=== PATIENT | male | born 1940 | race Caucasian/White ===

== ENCOUNTER 2016-12-06 09:36 | Outpatient (CLI) | payer MEDICARE ==
--- NOTE | 2016-12-06 10:55 | ULT ---
BILATERAL RENAL SONOGRAM: Date: 12/06/16 HISTORY: Renal failure. FINDINGS: The right kidney is 10.4 cm in length and the left is 9.3 cm. Each has a normal sonographic appearan ce without evidence of mass, stone, or hydronephrosis. Arcuate arteries are apparent. Urinary bladder is incompletely distended. IMPRESSION: No evidence of urinary tract obstruction. No significant abnormalities are demonstrated. POS: [facility]
== END 2016-12-06 09:37 | disposition home or self-care (01) ==
LOC: ULT 09:36
PROVIDERS: ATTEND Internal Medicine Geriatric Medicine
DX: N17.9 Acute kidney failure, unspecified (principal); N18.3 Chronic kidney disease, stage 3 (moderate)
CPT/HCPCS: 76770

== ENCOUNTER 2017-01-06 08:40 | Outpatient (CLI) | payer MEDICARE ==
--- NOTE | 2017-01-06 10:52 | SJPRAD ---
LEFT FINGER 3 VIEWS: Date: 01/06/17 HISTORY: Abscess of left finger. Osteomyelitis. COMPARISON: None. FINDINGS: There is extensive soft tissue edema of the index finger, which is markedly swollen. There is lucenc y of the cortex medullary cavity of the middle phalanx head and neck extending to the interphalangea l joint. There appears to be a pathologic fracture through this. IMPRESSION: Findings concerning for osteomyelitis of the middle phalanx head and neck, as well as septic arthrit is of distal interphalangeal joint of the index finger. There also appears to be a dorsal soft tissu e defect that may represent an ulceration. Surgical consultation is advised. POS: [facility]
== END 2017-01-06 08:41 | disposition home or self-care (01) ==
LOC: MWLC RAD 08:40
PROVIDERS: ATTEND Internal Medicine Geriatric Medicine
DX: L02.512 Cutaneous abscess of left hand (principal); M86.9 Osteomyelitis, unspecified; M19.042 Primary osteoarthritis, left hand

== ENCOUNTER 2017-01-06 18:07 | Observation (INO) | payer MEDICARE ==
[~2017-01-06 18:07] MED LIST: Heparin 1,000 UNITS/ML VIAL ONE
[2017-01-06] MEDS ORDERED: Sodium Chloride 0.9% 30 ML ONE (18:48)
[2017-01-06] MEDS ORDERED: Bacitracin Zinc Ointment 30 gm TUBE ONE (18:48)
[2017-01-06] MEDS ORDERED: Bupivacaine PF 0.5% 30 ML VIAL ONE (18:48)
[2017-01-06 19:26] LABS: #Basophils 0.1 thou/uL (0.0-0.2); #Eosinphils 0.3 thou/uL (0.0-0.7); #Lymphocytes 1.6 thou/uL (1.20-3.40); #Monocytes 0.8 thou/uL (0.11-0.59); #Neutrophils 2.8 thou/uL (1.40-6.50); %Basophils 1.4 % (0.0-1.0); %Eosinophils 4.5 % (0.0-10.0); %Lymphocytes 29.1 % (21.0-51.0); %Monocytes 14.8 % (0.0-10.0); Hematocrit 41.6 % (42.0-52.0); Mean Platelet Volume 6.4 fL (7.4-10.4); Red Blood Cell (RBC) Count 4.11 mill/uL (4.70-6.10); White Blood Cell (WBC) Count 5.6 thou/uL (4.8-10.8)
[2017-01-06 19:32] LABS: PTT 43.3 SEC (22.9-36.1); Prothrombin Time 23.2 SEC (12.0-14.7)
[2017-01-06 19:46] LABS: Anion Gap 12 mmol/L (10-20); BUN (Urea Nitrogen) 17 mg/dL (8.4-25.7); Calc. Creatinine Clearance 0 mL/min (70-130); Calcium 9.3 mg/dL (7.8-10.44); Carbon Dioxide 25 mmol/L (23-31); Chloride 101 mmol/L (98-107); Estimated GFR-MDRD 60
[2017-01-06] MEDS ORDERED: Dexamethasone 20 MG/5 ML VIAL ONE (20:06)
[2017-01-06] MEDS ORDERED: Propofol 200 MG/20 ML VIAL ONE (20:06)
[2017-01-06] MEDS ORDERED: Ondansetron HCl/PF 4 MG/2 ML Vial ONE (20:06)
[2017-01-06] MEDS ORDERED: Fentanyl 100 MCG/2 ML VIAL ONE (21:04)
[2017-01-06] MEDS ORDERED: Acetaminophen 325 MG TAB PO PRN (21:14)
[2017-01-06] MEDS ORDERED: HYDROcodone/Acetaminophen 7.5/325 mg Tablet PO PRN (21:14)
[2017-01-06] MEDS ORDERED: Bisacodyl 10 MG SUPP PR PRN (21:14)
[2017-01-06] MEDS ORDERED: diphenhydrAMINE 50 MG CAP PO PRN (21:14)
[2017-01-06] MEDS ORDERED: Ondansetron HCl/PF 4 MG/2 ML Vial IVP PRN (21:14)
[2017-01-06] MEDS ORDERED: Morphine 10 MG/ML VIAL SLOW IVP PRN (21:20)
[2017-01-06 22:18] VITALS: BMI 21.8
[2017-01-06] MEDS: Dextrose 5 %-0.45 % NaCl 1,000 ML IV SCH (23:13)
[2017-01-07 02:08] LABS: Bilirubin Negative (Negative); Blood, Urine Negative (Negative); Glucose, Urine (Dipstick) Negative (Negative); Ketone, Urine Negative (Negative); Nitrite Negative (Negative); Protein, Urine (Dipstick) Negative (Neg-Trace); Urobilinogen 0.2 mg/dL (0.2-1.0)
[2017-01-07 02:10] LABS: Bacteria/HPF None Seen HPF (None Seen); Hyaline Casts/LPF 0-3 HYALINE CAST LPF (0-3 Hyaline); RBC/HPF 0-3 HPF (0-3); Squamous Epithelial None Seen HPF (0-3); WBC/HPF None Seen HPF (0-3)
--- NOTE | 2017-01-07 08:20 | OP ---
DATE OF SURGERY: 01/06/2017 PREOPERATIVE DIAGNOSES: 1. Open wound, 1 cm over the distal interphalangeal joint. 2. Gross abscess infection. POSTOPERATIVE DIAGNOSIS: 1. Open wound, 1 cm over the distal interphalangeal joint. 2. Gross abscess infection. FINDINGS: 1. Open wound, 1 cm over the distal interphalangeal joint and gross abscess infection with mild ost eomyelitis, very soft distal 5 mm subchondral bone and articular surface at the neck of the middle p halanx. 2. Intra-articular abscess with only minimal involvement dorsal aspect of the distal phalanx but in volved the tendon causing marked adhesions and a hole in the extensor mechanism. PROCEDURE PERFORMED: 1. Resection of bone cortex of distal phalanx. 2. Resection of osteoplasty removing the distal 5 mm articular surface, it was all soft bone of the middle phalanx, neck, and distal end. 3. Drainage of bone abscess with bone cortex excision middle phalanx. 4. Tenotomy extensor tendon over the distal interphalangeal joint. SURGEON: Robert Cannon MD FINANCIAL INVESTMENT ADVISER: Angel Tucker DESCRIPTION OF PROCEDURE: After successful general LMA technique, the limb was prepped and draped. The patient had the wound undergo a timeout. The limb was exsanguinated and the tourniquet was inf lated 250 mmHg pressure just after given the 12 mL metacarpophalangeal joint level block at the leve l of the metacarpophalangeal joint of this index finger on the left side. The patient had gross pur ulence removed. This extended 5 mm distal and 2 centimeters proximally in a lazy J-type fashion. T here were marked tendon adhesions, so a tenotomy had to be done separate from the skin and from the bone where underlying the distal 4-5 mm of metacarpal of the middle phalanx, neck, and articular ella face completely softened and involved in gross osteomyelitis. We then curetted out the canal of the entire middle phalanx, separate what was left of the tendon because there was a hole and the tendon occupied over 75% of it ____ distal interphalangeal joint. Around the insertion of the tendo n, there was a small amount of mucopurulence, but no true soft bone was seen here. The joint had in fection and it was debrided as well using a combination of rongeur, curettes, freer, tenotomy scisso rs, and Kenedy blade. Once this debridement was done, we also debrided the skin, subcutaneous fat, using the same instrumentation with an excisional technique and a depth was down to include the enti re joint until the level of volar plate. Once this debridement was complete, we irrigated the joint with 3 liters of normal saline, Pulsavac pressure with bacitracin inside 50,000 units per liter. Tourniquet was deflated. Hemostasis obtained. We did not close the wound because of gross infectio n was sent. The bone that had been resected from the middle phalanx half as a specimen and half as a culture. The patient left the operating room with a bulky dressing applied, wet-to-dry packing of the open bone cavity with intention to admit for IV antibiotics, change in PICC line, and also obta stephaniad a consultation with Infectious Disease and hope to get him out of the hospital in the next 12 t o 16 hours.
[2017-01-07] MEDS ORDERED: Famotidine/PF 20 mg/2ml Vial SLOW IVP SCH (09:00)
[2017-01-07] MEDS ORDERED: Vancomycin HCl 1 GM in Premix Bag 1 BAG IVPB SCH ×2 (09:00→21:00)
[2017-01-07 09:05] VITALS: TEMP 97.7
[2017-01-07 13:52] VITALS: BP 133/71
[2017-01-07] MEDS: Dextrose 5 %-0.45 % NaCl 1,000 ML IV SCH (14:20)
--- NOTE | 2017-01-07 14:24 | SPC ---
SONOGRAPHIC GUIDED LEFT UPPER EXTREMITY PICC PLACEMENT: Date: 01/07/17 HISTORY: Finger infection. Need for long-term antibiotic. FINDINGS: After explaining the procedure and answering all questions, the left upper extremity was prepped and draped in the usual sterile fashion. Sterile technique, buffered local anesthesia, sonographic guid ance, and a 22 gauge needle were used to carefully access the left brachial vein. Standard technique was then used to place the tip of a 5 [place] single lumen PICC so that the tip lies at the level of the superior vena cava. The catheter was flushed and secured externally. The patient tolerated the procedure well and was returned in unchanged condition. IMPRESSION: Technically successful left upper extremity PICC placement. Catheter is now ready for use. POS: [facility]
[2017-01-07 15:19] LABS: Vancomycin, Trough 19.1 ug/mL
--- NOTE | 2017-01-07 15:31 | CON ---
DATE OF CONSULTATION: 01/07/2017 REASON FOR CONSULTATION: Left index finger infection. HISTORY OF PRESENT ILLNESS: A 76-year-old with a history of atrial fibrillation with ischemic cardi omyopathy, who sustained an injury to the left index finger while he was cutting a piece of biscuit with a knife. According to him, he nicked the distal phalanx skin site dorsal aspect, applied some peroxide, but subsequently developed inflammatory changes, which led to the current admission. No h eadaches, visual symptoms, sore throat, odynophagia, or dysphagia. He does have dyspnea sometimes m ostly on effort. No cough and no hemoptysis. No vomiting, hematemesis, melena, hematochezia. Void ing without difficulty. No diarrhea. The patient has chronic swelling in lower extremities, varice s. PAST MEDICAL HISTORY: Atrial fibrillation, cardiomyopathy, appendectomy. ALLERGIES: PENICILLIN with what he describes as an area of pruritus with swelling in the left arm a fter an injection of PENICILLIN in the right gluteal region many years ago. MEDICATION LIST: He is currently on hydrocodone, Pepcid, warfarin, vancomycin. FAMILY HISTORY: Includes coronary disease. SOCIAL HISTORY: He mostly lives in [place] and is trying to operate a restaurant. He works with a l ot of concrete jobs, and patient used to smoke cigars for the most part, but never cigarettes. Does not drink much. PHYSICAL EXAMINATION: VITAL SIGNS: Essentially normal. No fever. SKIN EXAM: Shows the findings in the left index finger, which is covered with a bulky dressing at t his time. No lymphadenopathy. HEENT: Ocular movements are conjugate. Oral cavity with still quite a few teeth in place with bette ed decay and gum disease. NECK: Supple, no jugular venous distention. LUNGS: With basilar inspiratory crackles, which are somewhat transient and resolved with deep breat rui. Irregular rate and rhythm. Not tachycardic. HEART: S1, S2 with a soft aortic murmur and pulmonic murmur. No S3 or S4. ABDOMEN: Soft, not distended, or tender. No ascites. No bladder distention. : No genital abnormalities. EXTREMITIES: Evidence of osteoarthrosis, shoulders, knees, and ankles. A 2-3+ edema in lower extre mities with varices in legs. Pulses 1+ in dorsalis pedis. Plantar responses are flexor. No clonus . NEUROLOGIC: Cognitive function appears to be intact. LABORATORY DATA: The white cell count was not remarkable, mild hyponatremia. The hemoglobin 13.5 w ith MCV 101 and neutrophil percentage of 50. Urinalysis was essentially normal. Microbiology with Staphylococcus species isolated from the finger. The operative report was reviewed and there was ev idence of quite extensive osteomyelitis, which required debridement, some tenosynovectomy as well. ASSESSMENT: 1. Atrial fibrillation, on warfarin. 2. Accidental laceration of the left index finger with osteomyelitis of the middle phalanx and sept ic arthritis involving the proximal interphalangeal joint, status post surgical debridement, now the patient being readied for discharge. PLAN: We will go ahead and set up vancomycin 1.25 grams daily with end date of therapy calculated t o be 02/17/2017. Weekly labs including CBC, C-reactive protein, comprehensive panel, and vancomycin trough levels. He already has a PICC line inserted, and potential adverse reactions from the treat ment were discussed with the patient including skin hypersensitivity reactions and diarrhea, kidney, liver, and bone marrow toxicity as well as the PICC line complications, particularly thrombosis, al though this is not going to be an issue in his case due to the intake of warfarin.
--- NOTE | 2017-01-07 16:09 | EKG ---
Test Reason : PREOP Blood Pressure : / mmHG Vent. Rate : 083 BPM Atrial Rate : 326 BPM P-R Int : 000 ms QRS Dur : 098 ms QT Int : 366 ms P-R-T Axes : 000 032 075 degrees QTc Int : 430 ms Atrial fibrillation Abnormal ECG No previous ECGs available Confirmed by DR. Wilfrido PAYNE ([id number]) on 01/07/2017 4:08:21 PM Referred By: Danae DA SILVA Confirmed By:DR. Wilfrido PAYNE
--- NOTE | 2017-01-10 12:55 | DIS ---
DATE OF ADMISSION: 01/06/2017 DATE OF DISCHARGE: 01/07/2017 ADMISSION DIAGNOSES: 1. Open wound, 1 cm of distal phalangeal joint. 2. Gross abscess infection. DISCHARGE DIAGNOSES: Osteomyelitis, both sides of the distal phalangeal joint including severe invol vement of the neck and middle phalanx and the base of the proximal phalanx. HOSPITAL COURSE: Patient was admitted and because of abscess show evidence of osteomyelitis grossly, clinically and radiographically, he underwent resection arthroplasty of the soft bone, which would b e approximately 5 mm of the articular and subarticular surface of the distal end of the middle phalan x and the base articular surface of the proximal phalanx. Then, after resection with full irri gation and debridement, the wound was left open for awhile, and we planned at next visit to consider closure. He tolerated this well, was placed in appropriate open wound dressing and prepared for disc harge. He also underwent a tenotomy extensor tendon over distal phalangeal joint and drainage of the bone abscess. ASSESSMENT: The patient will return to clinic 2 days after discharge for dressing change, will have a splint applied , and the patient was finally without evidence of anesthetic or operative compl ication. He was prepared for intravenous antibiotics, which gave him prior to discharge. He will be on culture specific antibiotics after discharge. DIET: Regular. FOLLOWUP: Follow up in our clinic in less than 1 week for wound check.
== END 2017-01-07 16:45 | disposition home or self-care (01) ==
LOC: SDC 18:07 → SJJU 21:33
PROVIDERS: ADMIT Orthopaedic Surgery Hand Surgery; ATTEND Orthopaedic Surgery Hand Surgery
PROC: 0PBV0ZZ Excision of Left Finger Phalanx, Open Approach (ICD-10-PCS; principal; 2017-01-06)
PROC: 0LC80ZZ Extirpation of Matter from Left Hand Tendon, Open Approach (ICD-10-PCS; 2017-01-06)
PROC: 05HA33Z Insertion of Infusion Device into Left Brachial Vein, Percutaneous Approach (ICD-10-PCS; 2017-01-06)
PROC: B54NZZA Ultrasonography of Left Upper Extremity Veins, Guidance (ICD-10-PCS; 2017-01-06)
DX: M86.142 Other acute osteomyelitis, left hand (principal); I48.91 Unspecified atrial fibrillation; I25.5 Ischemic cardiomyopathy; S61.211A Laceration without foreign body of left index finger without damage to nail, initial encounter; W26.0XXA Contact with knife, initial encounter; M54.9 Dorsalgia, unspecified; G89.29 Other chronic pain; I10 Essential (primary) hypertension; J44.9 Chronic obstructive pulmonary disease, unspecified; K21.9 Gastro-esophageal reflux disease without esophagitis; M19.90 Unspecified osteoarthritis, unspecified site; Z79.2 Long term (current) use of antibiotics; Z79.01 Long term (current) use of anticoagulants; Z79.82 Long term (current) use of aspirin; Z79.899 Other long term (current) drug therapy; Z88.0 Allergy status to penicillin; Z90.49 Acquired absence of other specified parts of digestive tract; Z90.89 Acquired absence of other organs; Z98.890 Other specified postprocedural states; Z87.891 Personal history of nicotine dependence; Z87.01 Personal history of pneumonia (recurrent)
CPT/HCPCS: 11044; 26236; 26460; 36569; 80048; 80202; 81001; 85025; 85610; 85730; 87070; 87075; 87077; 87102; 87186; 87205; 87206; 88305; 93005; 96361 ×2; 96374 ×2; 97139 ×2; C1751; G0378; G8978; G8979; G8980; 36415; 93010; 99212; A4216; G0463; J1100; J1644; J2405; J2704; J3010; J3370; J3490; S0020; S0028

== ENCOUNTER 2017-01-18 10:07 | Inpatient (IN) | payer MEDICARE, SELFPAY ==
[2017-01-18 10:42] LABS: #Basophils 0.1 thou/uL (0.0-0.2); #Eosinphils 0.2 thou/uL (0.0-0.7); #Lymphocytes 1.8 thou/uL (1.20-3.40); #Monocytes 1.2 thou/uL (0.11-0.59); #Neutrophils 6.2 thou/uL (1.40-6.50); %Basophils 0.9 % (0.0-1.0); %Eosinophils 2.5 % (0.0-10.0); %Lymphocytes 18.7 % (21.0-51.0); %Monocytes 12.1 % (0.0-10.0); Hematocrit 46.8 % (42.0-52.0); Mean Platelet Volume 6.9 fL (7.4-10.4); Red Blood Cell (RBC) Count 4.52 mill/uL (4.70-6.10); White Blood Cell (WBC) Count 9.5 thou/uL (4.8-10.8)
[2017-01-18 10:53] LABS: PTT 55.9 SEC (22.9-36.1); Prothrombin Time 40.4 SEC (12.0-14.7)
[2017-01-18 11:01] LABS: Troponin I Less than 0.010 ng/mL (< 0.028)
[2017-01-18 11:08] LABS: ALT (SGPT) 17 U/L (8-55); AST (SGOT) 32 U/L (5-34); Alkaline Phosphatase 125 U/L (40-150); Anion Gap 13 mmol/L (10-20); BUN (Urea Nitrogen) 19 mg/dL (8.4-25.7); Bilirubin, Total 1.6 mg/dL (0.2-1.2); CK (CPK) 48 U/L (30-200); Calc. Creatinine Clearance 0 mL/min (70-130); Calcium 9.5 mg/dL (7.8-10.44); Carbon Dioxide 26 mmol/L (23-31); Chloride 98 mmol/L (98-107); Estimated GFR-MDRD 46; Lipase 42 U/L (8-78)
[2017-01-18] MEDS ORDERED: Lidocaine Viscous Sol 2% 15 ml UD Cup ONE (11:17)
[2017-01-18] MEDS ORDERED: Mag-Al 1200 mg/1200 mg/30 ML UDCUP ONE (11:17)
--- NOTE | 2017-01-18 11:30 | RAD ---
PORTABLE CHEST 1 VIEW: Date: 01/18/17 Time: 1035 hours HISTORY: Chest pain, shortness of breath. FINDINGS/IMPRESSION: There is a left upper extremity PICC line with tip in the projection of the SVC. There is elevation of the left hemidiaphragm. Mild patchy infiltrates are seen in the right lung and probably the left lung base. Small pleural effusions cannot be excluded. No pneumothoraces or kayleen pulmonary edema id entified. The heart size is borderline. POS: [facility]
[2017-01-18] MEDS ORDERED: Furosemide 40 MG/4 ML VIAL ONE (13:03)
[2017-01-18] MEDS ORDERED: Nitroglycerin 2% Ointment 1 INCH/1 GM Packet ONE (13:03)
--- NOTE | 2017-01-18 13:18 | CT ---
CT PULMONARY ANGIOGRAM WITH IV CONTRAST AND 3D MIP RECONSTRUCTIONS: 01/18/2017 PROVIDED CLINICAL HISTORY: Dyspnea. History of congestive heart failure. Bilateral lower extremity edema. FINDINGS: The heart is enlarged, particularly on the basis of biatrial enlargement. Vascular calcification, i ncluding coronary calcium, is noted. There is no evidence for central or segmental pulmonary embolu s. There is no evidence for thoracic lymph node enlargement. There are moderate to large bilateral pleural effusions. There is thickening of the pulmonary inter stitium. There is no evidence for pneumothorax. The airway appears patent and of normal caliber. The visualized portions of the upper abdomen appear grossly unremarkable. There is elevation of the left hemidiaphragm. A left upper extremity PICC line is partially visualized, the tip of which is located at the SVC. IMPRESSION: 1. No evidence for central or segmental pulmonary embolus. 2. Cardiomegaly and prominence of the pulmonary interstitium, compatible with changes of congestive heart failure. 3. Moderate to large bilateral pleural effusions. POS: OFF
[2017-01-18] MEDS ORDERED: Vancomycin HCl 1.25 GM in Sodium Chloride 0.9% 250 ML 250 ML IVPB SCH (13:45)
[2017-01-18] MEDS ORDERED: ISOVUE-370 76%-LOCM 1 ML ONE (14:18)
[2017-01-18 14:35] LABS: Troponin I 0.013 ng/mL (< 0.028)
[2017-01-18] MEDS ORDERED: Ondansetron HCl/PF 4 MG/2 ML Vial IVP PRN (15:38)
[2017-01-18] MEDS ORDERED: Sodium Chloride 0.65% Nasal 44 ML BOT EA NARE PRN (15:38)
[2017-01-18] MEDS ORDERED: Nitroglycerin 0.4 MG TAB (25 Tab Bottle) SL PRN (15:38)
[2017-01-18] MEDS ORDERED: Senokot 8.6 MG TAB PO PRN (15:38)
[2017-01-18] MEDS ORDERED: Artificial Tear Sol 15 ML BOT EA EYE PRN (15:38)
[2017-01-18] MEDS ORDERED: Milk Of Magnesia 30 ML UDCUP PO PRN (15:38)
[2017-01-18] MEDS ORDERED: Chloraseptic Spray 180 ml Bottle PO PRN (15:38)
[2017-01-18] MEDS ORDERED: Loperamide HCl 2 MG CAP PO PRN (15:38)
[2017-01-18] MEDS ORDERED: Diabetic Tussin 200 MG/10 ML UDCUP PO PRN (15:38)
[2017-01-18] MEDS ORDERED: Acetaminophen 325 MG TAB PO PRN (15:38)
[2017-01-18] MEDS ORDERED: Benzonatate 100 MG CAP PO PRN (15:38)
[2017-01-18] MEDS ORDERED: Ondansetron ODT 4 MG TAB PO PRN (15:38)
[2017-01-18] MEDS ORDERED: Loratadine 10 MG TAB PO PRN (15:38)
[2017-01-18] MEDS ORDERED: Eucerin (Mineral Oil/Petrolatum,White) 30 gm Jar TOP PRN (15:38)
[2017-01-18] MEDS ORDERED: HYDROcodone/Acetaminophen 5/325 mg Tablet PO PRN (15:38)
[2017-01-18] MEDS ORDERED: hydrALAZINE 20 MG/ML VIAL SLOW IVP PRN (15:38)
[2017-01-18] MEDS ORDERED: Mag-Al 1200 mg/1200 mg/30 ML UDCUP PO PRN (15:38)
[2017-01-18] MEDS ORDERED: VANCOMYCIN IVPB PRN (15:38)
--- NOTE | 2017-01-18 15:53 | HP ---
PRIMARY CARE PHYSICIAN: [facility]. REASON FOR ADMISSION: Chest pain, congestive heart failure exacerbation, COPD exacerbation. HISTORY OF PRESENT ILLNESS: A 76-year-old male who has underlying history of congestive heart failu re, COPD, atrial fibrillation on chronic anticoagulation therapy, who presented to the emergency [facility] with the complaint of increasing shortness of breath, chest pain as well as increasing bilateral l ower extremity edema. The patient reports that he has Medicare, but he is not able to follow up wit primary care physician as well as consultants because he cannot afford and that is why he has not seen any cardiology consultant for about a couple of years. He was recently admitted in our hospital on 2016. At that time, the patient had a cut in his left index finger, which required surgery. After c ut, the patient's left index finger was infected and Dr. Cannon did surgical procedure. The patie nt is getting vancomycin through the PICC line. The patient is also on warfarin therapy for his chr onic anticoagulation. The patient reports that he has history of cardiomyopathy and he was following supervisory civil engineer in [facility] am, but he is no longer following for the last couple of years. The patient also has underlying his tory of COPD and he was following mathematics academic chair at [facility], but he is not able to see them a s well and his inhalers are outdated. The patient does have increasing lower extremity edema for the last 2-3 weeks. For the last 5 days, the patient is feeling increasing shortness of breath. For the last 2-3 days, he is experiencing ch est pain. Lower extremity edema is gradually getting worse from pedal edema up to his knee level. Dyspnea is gradually getting worse to the point likely now he is only able to walk a few steps and t hen he has to rest. He cannot lie down flat. He does report orthopnea. He denies any PND. Regard ing chest pain which is substernal in location comes and goes for the last 3 days. Whenever it come s, it does last for only a few minutes and subsides by itself. There is no radiation. He denies an y associated diaphoresis, nausea, or vomiting. There is no specific relation of chest pain with sarabjit d, respiration or activity. He denies any palpitation. He denies any syncope. He does report gene ralized weak. He denies any fever or chills. He denies any urinary tract infection symptoms. PAST MEDICAL HISTORY: Hypertension, chronic congestive heart failure, atrial fibrillation, osteomye litis of left index finger required surgery, COPD, and hypothyroidism. PAST SURGICAL HISTORY: Left index finger surgery, appendicectomy, tonsillectomy, ear and nose surge ry. PAST PSYCHIATRIC HISTORY: Reviewed and negative. SOCIAL HISTORY: The patient is , lives with his . His is a smoker. They live in [facility]. They have a very limited income. No history of alcohol, drug abuse or smoking. The patient has a remote history of alcohol abuse, but he quit drinking in 1994. FAMILY HISTORY: Positive for coronary artery disease among several family members. ALLERGIES: The patient is allergic to PENICILLIN, but reaction, he does not know. CURRENT HOME MEDICATIONS: The patient is on following medication: Aspirin 81 mg p.o. daily, Lasix 20 mg daily, Synthroid 25 mcg p.o. daily, metoprolol 50 mg p.o. daily, Protonix 40 mg p.o. daily, wa rfarin 5 mg p.o. daily, patient is getting vancomycin through his PICC line. REVIEW OF SYSTEMS: The following complete review of systems was negative, unless otherwise mention ed in the HPI or below: Constitutional: Weight loss or gain, ability to conduct usual activities. Skin: Rash, itching. Eyes: Double vision, pain. ENT/Mouth: Nose bleeding, neck stiffness, pain, t enderness. Cardiovascular: Palpitations, dyspnea on exertion, orthopnea. Respiratory: Shortness o f breath, wheezing, cough, hemoptysis, fever or night sweats. Gastrointestinal: Poor appetite, abd ominal pain, heartburn, nausea, vomiting, constipation, or diarrhea. Genitourinary: Urgency, frequ ency, dysuria, nocturia. Musculoskeletal: Pain, swelling. Neurologic/Psychiatric: Anxiety, depress ion. Allergy/Immunologic: Skin rash, bleeding tendency. Please see my HPI for pertinent positive a nd negative, all other review of systems were reviewed and negative except as mentioned in the HPI. EMERGENCY ROOM COURSE: The patient is receiving vancomycin, Lasix, nitroglycerin 0.5 inch, GI cockt ail and aspirin 325 mg. PHYSICAL EXAMINATION: VITAL SIGNS: On arrival, blood pressure 137/94, pulse 93, respiratory rate 19, temperature 97.4, sa turation 92% on room air, weight 66.2 kilograms. GENERAL: The patient is currently alert, awake, appears weak. No obvious acute distress. HEENT: Head: Normocephalic, atraumatic. Eyes: Pupils round, reactive to light. Extraocular muscl e intact. ENT: Oropharynx within normal limits. Moist mucous membranes. No oral lesions. No pha ryngeal erythema. No exudates. NECK: Supple, no JVD, no thyromegaly, no carotid bruit, no meningeal signs of irritation. LUNGS: Coarse breath sounds. Air entry reduced basally, few basilar rales noted. CARDIAC: S1, S2 appears regular. No significant murmur noted. No gallop, no rub. ABDOMEN: Soft, bowel sounds present, nontender, nondistended. No organomegaly, no mass, no suprapu bic tenderness. BACK: Unremarkable, no CVA tenderness. EXTREMITIES: Upper extremity, left brachial PICC line noted without any surrounding changes. Bulky dressing on left index finger, upper extremity on the right side within normal limits. Lower extre mity bilateral pitting edema +2 up to the knee level. No calf tenderness. Distal pulsation intake. NEUROLOGIC: Nonfocal examination. Speech normal. Motor and sensation are normal. SKIN: No skin rash. PSYCHIATRIC: Normal affect. SIGNIFICANT LABS: EKG showing atrial fibrillation. Chest x-ray based on my review left upper extre mity PICC line, patchy infiltrate in the right lung and left lung base. CT angio showing no evidenc e of PE, cardiomegaly, prominence of pulmonary interstitium, moderate to large pleural effusion. CBC: WBC 9.5, hemoglobin 14.9, platelet 231, MCV 104. INR 3.9. D-dimer 0.84. BMP: Sodium 133, p otassium 4.2, chloride 98, carbon dioxide 26, BUN 19, creatinine 1.48, glucose 102, calcium 9.5. LFT: AST 32, ALT 17, alkaline phosphatase 125, albumin 4.0, lipase 42. BNP 510. Cardiac enzymes n egative x2. ASSESSMENT AND PLAN: IMPRESSION: 1. Acute on chronic diastolic congestive heart failure. We do not have echocardiography to confirm the systolic versus diastolic dysfunction, but I am suspecting he has diastolic heart failure, pred ominantly right-sided heart failure. At this point, the patient will require diuretic therapy with Lasix 40 mg IV b.i.d. We will monitor electrolytes and renal function, daily weight, input and outp ut chart, and replace electrolytes as needed basis. We will obtain echocardiography to confirm ejec tion fraction and we will monitor on telemetry floor. Cardiac rehabilitation will be consulted. 2. Chronic obstructive pulmonary disease flareup. This patient has passive exposure to smoking and he has a history of smoking. At this point, we will continue with the DuoNeb every 6 hourly and Du daniel 2 puffs inhalation b.i.d., Mucinex 600 mg twice daily. 3. Atrial fibrillation, currently rate is under control. We will monitor on telemetry floor. We w ill continue with metoprolol 25 mg twice daily. The patient will continue his chronic anticoagulati on therapy with warfarin. Currently, INR is 3.9, so that is why we will hold on warfarin therapy to night. We will monitor PT/INR on daily basis. 4. Chronic kidney disease stage 3. We will monitor renal function and avoid nephrotoxic agent. 5. Macrocytosis. We will continue with folic acid and vitamin B12 therapy while in hospital. 6. Protein calorie malnutrition, mild to moderate. The patient will be given nutritional supplemen t with Ensure t.i.d. 7. Left index finger osteomyelitis, required surgical debridement, currently on intravenous vancomy kassandra. While in hospital, we will also continue vancomycin as per pharmacy adjusted dose. 8. Hypothyroidism. We will continue Synthroid 25 mcg p.o. daily. 9. Gastroesophageal reflux disease. We will continue Protonix 40 mg p.o. daily. 10. Deep venous thrombosis prophylaxis. The patient is already on full dose of warfarin therapy. 11. Gastrointestinal prophylaxis, Protonix 40 mg p.o. daily. CODE STATUS: The patient is FULL CODE. The patient's is surrogate decision maker. Disposition plan based on clinical course, we are expecting patient's stay in hospital more than 2 m idnights. Plan of care discussed with the patient in detail.
[2017-01-18] MEDS ORDERED: COUMADIN PO PRN (16:13)
[2017-01-18 18:48] LABS: Bilirubin Negative (Negative); Blood, Urine Large (Negative); Glucose, Urine (Dipstick) Negative (Negative); Ketone, Urine Negative (Negative); Nitrite Negative (Negative); Protein, Urine (Dipstick) Negative (Neg-Trace); Urobilinogen 0.2 mg/dL (0.2-1.0)
[2017-01-18 18:53] LABS: Bacteria/HPF None Seen HPF (None Seen); Hyaline Casts/LPF 0-3 HYALINE CAST LPF (0-3 Hyaline); RBC/HPF GREATER THAN 50-TNTC HPF (0-3); Squamous Epithelial 0-3 HPF (0-3); WBC/HPF 0-3 HPF (0-3)
[2017-01-18] MEDS: Mometasone/Formoterol 120 PUFF INHALER INH SCH (19:59)
[2017-01-18] MEDS ORDERED: Sodium Chloride 0.9% 10 ML ONE (20:30)
[2017-01-18] MEDS: Metoprolol Tartrate 25 MG TAB PO SCH (20:35)
[2017-01-18] MEDS ORDERED: Digoxin 0.5 MG/2 ML AMP SLOW IVP SCH ×2 (21:00→23:15)
--- NOTE | 2017-01-18 21:01 | PDOC.EVN ---
Event Note - Event Note Event Note: Called by nursing regarding A-fib RVR in 130's. SOB and sharp chest pain. VS reviewed, HR 130's irregular, O2 sat 95%, BP 108/71 Alert, responsive in mild distress Chest: diminished breath sounds in bases CV: irregular, tachycardic EXT: Bilat mild edema Tele - A-fib RVR in 130's Start Digoxin 0.5mg IV x 1 now, 0.25mg IV in 2h if HR> 120
[2017-01-19 05:04] LABS: Prothrombin Time 40.5 SEC (12.0-14.7)
[2017-01-19] MEDS ORDERED: Sodium Chloride 0.9% 10 ML ONE (05:17)
[2017-01-19 05:22] LABS: Anion Gap 11 mmol/L (10-20); BUN (Urea Nitrogen) 19 mg/dL (8.4-25.7); Calc. Creatinine Clearance 41 mL/min (70-130); Calcium 8.9 mg/dL (7.8-10.44); Carbon Dioxide 31 mmol/L (23-31); Chloride 98 mmol/L (98-107); Estimated GFR-MDRD 50; Uric Acid 8.4 mg/dL (3.5-7.2)
[2017-01-19 05:34] LABS: Band 1 % (5-11); Hematocrit 40.2 % (42.0-52.0); Mean Platelet Volume 6.7 fL (7.4-10.4); Neutrophil 62 % (42-75); Reactive Lymphocytes 3 % (0-10); Red Blood Cell (RBC) Count 3.88 mill/uL (4.70-6.10); White Blood Cell (WBC) Count 7.4 thou/uL (4.8-10.8)
[2017-01-19] MEDS: Furosemide 40 MG/4 ML VIAL SLOW IVP SCH ×2 (06:16→14:54)
[2017-01-19] MEDS: Levothyroxine Sodium 25 MCG TAB PO SCH (06:16)
[2017-01-19 08:32] VITALS: BMI 21.2
[2017-01-19] MEDS: Mometasone/Formoterol 120 PUFF INHALER INH SCH ×2 (08:36→18:40)
[2017-01-19] MEDS: Cyanocobalamin (Vitamin B-12) 1,000 MCG TAB PO SCH (08:37)
[2017-01-19] MEDS: Folic Acid 1 MG TAB PO SCH (08:37)
[2017-01-19] MEDS: Metoprolol Tartrate 25 MG TAB PO SCH ×2 (08:37→20:35)
[2017-01-19] MEDS: Vancomycin HCl 1.25 GM in Sodium Chloride 0.9% 250 ML 250 ML IVPB SCH (14:54)
--- NOTE | 2017-01-19 15:55 | PDOC.PN ---
- Subjective Encounter Start Date: 01/19/17 Encounter Start Time: 10:30 Subjective: FEELS BETTER, CONTINUED COYLE - Objective Resuscitation Status: Resuscitation Status FULL:Full Resuscitation MAR Reviewed: Yes Vital Signs & Weight: Vital Signs (12 hours) Temp Pulse Pulse Pulse Resp BP BP 01/19/17 14:28 97.3 F L 92 20 01/19/17 14:11 84 18 01/19/17 11:12 94 94 117/65 132/81 01/19/17 08:38 01/19/17 08:37 87 18 01/19/17 08:33 97.6 F 97 18 01/19/17 06:12 97 20 01/19/17 04:00 98.1 F 91 20 BP Pulse Ox Pulse Ox 01/19/17 14:28 111/63 98 01/19/17 14:11 97 01/19/17 11:12 95 01/19/17 08:38 99 01/19/17 08:37 99 01/19/17 08:33 123/68 99 01/19/17 06:12 116/71 01/19/17 04:00 120/69 97 Weight Admit Weight 144 lb Weight 139 lb 11.2 oz I&O: 01/18/17 01/19/17 01/20/17 06:59 06:59 06:59 Intake Total 630 Output Total 700 Balance -70 Result Diagrams: 01/19/17 04:44 01/19/17 04:44 Phys Exam - Physical Examination Constitutional: NAD HEENT: PERRLA, moist MMs NC IN PLACE Neck: supple COARSE BS Cardiovascular: irregular Gastrointestinal: soft, non-tender Musculoskeletal: edema present Neurological: non-focal, moves all 4 limbs Psychiatric: normal affect, A&O x 3 Dx/Plan (1) Chronic a-fib Code(s): I48.2 - CHRONIC ATRIAL FIBRILLATION Status: Acute (2) CHF (congestive heart failure) Code(s): I50.9 - HEART FAILURE, UNSPECIFIED Status: Acute (3) Debility Code(s): R53.81 - OTHER MALAISE Status: Acute (4) COPD (chronic obstructive pulmonary disease) Status: Acute (5) Hypothyroid Code(s): E03.9 - HYPOTHYROIDISM, UNSPECIFIED Status: Acute (6) DJD (degenerative joint disease) Code(s): M19.90 - UNSPECIFIED OSTEOARTHRITIS, UNSPECIFIED SITE Status: Acute - Plan cont current plan of care, plan discussed w/ family, PT/OT, respiratory therapy ECHO AND CARDIOLOGY EVAL PENDING * .
[2017-01-20 05:06] LABS: #Basophils 0.1 thou/uL (0.0-0.2); #Eosinphils 0.4 thou/uL (0.0-0.7); #Lymphocytes 1.5 thou/uL (1.20-3.40); #Neutrophils 5.4 thou/uL (1.40-6.50); %Basophils 0.6 % (0.0-1.0); %Eosinophils 4.3 % (0.0-10.0); %Lymphocytes 17.8 % (21.0-51.0); %Monocytes 12.1 % (0.0-10.0); Hematocrit 42.3 % (42.0-52.0); Mean Platelet Volume 7.3 fL (7.4-10.4); White Blood Cell (WBC) Count 8.2 thou/uL (4.8-10.8)
[2017-01-20 05:09] LABS: Prothrombin Time 27.5 SEC (12.0-14.7)
[2017-01-20 05:14] LABS: Anion Gap 10 mmol/L (10-20); BUN (Urea Nitrogen) 22 mg/dL (8.4-25.7); Calc. Creatinine Clearance 34 mL/min (70-130); Calcium 8.8 mg/dL (7.8-10.44); Carbon Dioxide 29 mmol/L (23-31); Chloride 97 mmol/L (98-107); Estimated GFR-MDRD 44
[2017-01-20] MEDS: Furosemide 40 MG/4 ML VIAL SLOW IVP SCH ×2 (05:34→14:57)
[2017-01-20] MEDS: Levothyroxine Sodium 25 MCG TAB PO SCH (05:34)
[2017-01-20] MEDS: Mometasone/Formoterol 120 PUFF INHALER INH SCH ×2 (07:36→18:31)
--- NOTE | 2017-01-20 08:05 | PDOC.PN ---
- Subjective Encounter Start Date: 01/20/17 Encounter Start Time: 07:50 Subjective: C/O COUGH AND HEMATURIA - Objective Resuscitation Status: Resuscitation Status FULL:Full Resuscitation MAR Reviewed: Yes Vital Signs & Weight: Vital Signs (12 hours) Temp Pulse Resp BP Pulse Ox 01/20/17 07:38 98 01/20/17 07:36 89 20 98 01/20/17 05:04 97.7 F 88 16 116/75 97 01/20/17 04:45 98 01/20/17 01:41 84 16 98 01/20/17 00:00 97.4 F L 84 20 110/63 98 Weight Admit Weight 144 lb Weight 131 lb 12.8 oz I&O: 01/19/17 01/20/17 01/21/17 06:59 06:59 06:59 Intake Total 630 960 Output Total 700 4675 Balance -70 -8127 Result Diagrams: 01/20/17 04:30 01/20/17 04:30 Phys Exam - Physical Examination Constitutional: NAD HEENT: PERRLA, moist MMs, sclera anicteric Neck: supple, full ROM Respiratory: no wheezing RHONCHI Cardiovascular: irregular Gastrointestinal: soft, non-tender Musculoskeletal: no edema Neurological: non-focal, moves all 4 limbs Psychiatric: normal affect, A&O x 3 Deviation from normal: MX ECCHYMOSES Dx/Plan (1) Chronic a-fib Code(s): I48.2 - CHRONIC ATRIAL FIBRILLATION Status: Acute (2) CHF (congestive heart failure) Code(s): I50.9 - HEART FAILURE, UNSPECIFIED Status: Acute (3) Debility Code(s): R53.81 - OTHER MALAISE Status: Acute (4) COPD (chronic obstructive pulmonary disease) Status: Acute (5) Hypothyroid Code(s): E03.9 - HYPOTHYROIDISM, UNSPECIFIED Status: Acute (6) DJD (degenerative joint disease) Code(s): M19.90 - UNSPECIFIED OSTEOARTHRITIS, UNSPECIFIED SITE Status: Acute - Plan cont current plan of care, continue antibiotics, respiratory therapy INR 2.5 WILL RESTART COUMADIN, DR. BOB CONSULTED, ECHO RESULTS -: PENDING * .
[2017-01-20] MEDS: Folic Acid 1 MG TAB PO SCH (08:11)
[2017-01-20] MEDS: Metoprolol Tartrate 25 MG TAB PO SCH ×2 (08:11→20:08)
[2017-01-20] MEDS: Cyanocobalamin (Vitamin B-12) 1,000 MCG TAB PO SCH (08:11)
[2017-01-20 13:45] LABS: Vancomycin, Trough 14.3 ug/mL
[2017-01-20] MEDS: Vancomycin HCl 1.25 GM in Sodium Chloride 0.9% 250 ML 250 ML IVPB SCH (14:57)
--- NOTE | 2017-01-20 16:19 | CON ---
DATE OF SERVICE: 01/20/2017 TYPE OF CONSULTATION: Cardiology Consultation. REASON FOR CONSULTATION: Heart failure. HISTORY OF PRESENT ILLNESS: Mr. Sharma is a very pleasant 76-year-old white gentleman who comes to the hospital for shortness of breath. He was seen in the office about a month and a half ago for [facility] establishment of care. He has history of heart failure, COPD, and chronic A. fib. He used to be o n Eliquis and had to stop it because of the cost, so he is now on Coumadin. Currently, Mr. Sharma w as found to have evidence of heart failure. He was given some IV Lasix and is already feeling a dorene le bit better. When seen in the office, he was scheduled to have a stress test and echo and some per ipheral studies, but he could not afford any of the copay, the 20% that he is supposed to pay from e Medicare allowable, so he canceled most of the procedure without talking to financial auditor in our office. He was admitted to the hospital for hand injury that eventually got infected and orthope dics has to do surgery on it and eventually has been on antibiotics that will have to be there for a long time for osteomyelitis of the hand. He comes in today as he noticed lower extremity edema getti ng worse for the last 2 weeks, but last 5 days were much worse, the shortness of breath got to the po int where he could not breathe, felt he was drowning, so he decided to come in for evaluation. He al so noted that his abdomen was getting swollen and that his legs were swelling up as well. PAST MEDICAL HISTORY: 1. Hypertension. 2. History of heart failure, unknown which type. 3. Chronic atrial fibrillation. 4. Osteomyelitis of the left index finger. 5. COPD. 6. Hypothyroidism. PAST SURGICAL HISTORY: 1. Left index surgery for his osteomyelitis. 2. Appendectomy. 3. Tonsillectomy. 4. Ear and nose surgery. SOCIAL HISTORY: He does not smoke, but his is a chronic smoker and he gets a lot of secondhand smoke this way. No alcohol or drugs. He quit drinking in 1994. He used to abuse alcohol. FAMILY HISTORY: Positive for coronary disease in family members but not at an early age. OUTPATIENT MEDICATIONS: Include, 1. Aspirin 81 mg a day. 2. Lasix 20 mg a day. 3. Synthroid 25 mcg a day. 4. Metoprolol 50 mg b.i.d. 5. Protonix. 6. Warfarin. 7. Vancomycin through his PICC line. ALLERGIES: PENICILLIN. REVIEW OF SYSTEMS: A 12 point review of systems was done and was all negative unless stated in the h istory of present illness. PHYSICAL EXAMINATION: VITAL SIGNS: Temperature 96.9, pulse 96, respiratory rate 18, satting 100% on 1.5 L, blood pressure 95/58. GENERAL: Awake, alert, oriented x3, in no distress. HEENT: Normocephalic, atraumatic. NECK: Supple. LUNGS: Have bilateral crackles at the bases. CARDIOVASCULAR: S1, S2. There is a grade 3/6 systolic murmur at the right upper sternal border. Th ere is a grade 3/6 holosystolic murmur at the apex. ABDOMEN: Soft. BACK: 2+ edema. SKIN: Warm and dry. LABORATORY WORK: Reviewed. White count 9.5, hemoglobin 14, hematocrit 46, platelet count of 231. C oags: INR was 3.0 on admission, 2.5 now. Chemistries are unremarkable except for creatinine of 1.38 , now 1.5. BNP was 510. Troponin was negative x3. UA was negative except for large blood and great er than [address] of the chest showed no evidence of pulmonary embolus, cardiomegaly with congestive heart failure c hanges and moderate to large bilateral pleural effusions. Echocardiogram performed on this admission showed normal LV function, EF of 55-60%. There is a prola pse of the posterior leaflet of the mitral valve with severe mitral regurgitation, severe tricuspid r egurgitation, and moderate pulmonary hypertension with RVSP estimated at 62 mmHg. ASSESSMENT AND PLAN: 1. Acute diastolic heart failure. 2. Pulmonary hypertension, decompensated. 3. Severe mitral regurgitation, acutely decompensated. 4. Recent episode of osteomyelitis of the left hand. PLAN: 1. Continue IV diuresis for now. If her kidney function continues to rise, would hold back on diure sing per day and then continue. He has good LV output; however, if he has severe MR, the effective output from the heart through the aorta is probably half of the 60% EF that he has, so a true EF is c lose to 30%. If this is a difficult situation as if we were to use pressors, we would increase the L V contractility and we may just end up increasing the MR flow as it is the path of least resistance a nd this may lead to more heart failure. At this time, we will continue IV diuresis, hopefully it karen l get better for now. 2. Blood pressure control is important; however, his blood pressure is very normal and not an issue at this time. Thank you for letting us to participate in the care of patient. We will follow.
[2017-01-20] MEDS: Warfarin Sodium 2.5 MG TAB PO SCH (17:55)
[2017-01-21 05:35] LABS: #Basophils 0.1 thou/uL (0.0-0.2); #Eosinphils 0.5 thou/uL (0.0-0.7); #Lymphocytes 1.5 thou/uL (1.20-3.40); #Monocytes 1.2 thou/uL (0.11-0.59); #Neutrophils 6.7 thou/uL (1.40-6.50); %Basophils 0.9 % (0.0-1.0); %Eosinophils 4.6 % (0.0-10.0); %Lymphocytes 15.3 % (21.0-51.0); %Monocytes 12.1 % (0.0-10.0); Hematocrit 44.7 % (42.0-52.0); Mean Platelet Volume 6.5 fL (7.4-10.4); Red Blood Cell (RBC) Count 4.28 mill/uL (4.70-6.10); White Blood Cell (WBC) Count 9.9 thou/uL (4.8-10.8)
[2017-01-21] MEDS: Levothyroxine Sodium 25 MCG TAB PO SCH (05:40)
[2017-01-21] MEDS: Furosemide 40 MG/4 ML VIAL SLOW IVP SCH (05:40)
[2017-01-21 05:42] LABS: Prothrombin Time 20.9 SEC (12.0-14.7)
[2017-01-21 05:49] LABS: Anion Gap 12 mmol/L (10-20); BUN (Urea Nitrogen) 25 mg/dL (8.4-25.7); Calc. Creatinine Clearance 32 mL/min (70-130); Calcium 9.5 mg/dL (7.8-10.44); Carbon Dioxide 32 mmol/L (23-31); Chloride 97 mmol/L (98-107); Estimated GFR-MDRD 42
[2017-01-21] MEDS: Folic Acid 1 MG TAB PO SCH (09:23)
[2017-01-21] MEDS: Cyanocobalamin (Vitamin B-12) 1,000 MCG TAB PO SCH (09:23)
[2017-01-21] MEDS: Metoprolol Tartrate 25 MG TAB PO SCH ×2 (09:23→21:44)
--- NOTE | 2017-01-21 11:25 | PDOC.PN ---
- Subjective Encounter Start Date: 01/21/17 Encounter Start Time: 09:00 Subjective: breathing better, no chest pain -: still has some cough - Objective Resuscitation Status: Resuscitation Status FULL:Full Resuscitation MAR Reviewed: Yes Vital Signs & Weight: Vital Signs (12 hours) Temp Pulse Resp BP Pulse Ox 01/21/17 07:50 97.6 F 89 18 110/73 96 01/21/17 04:00 97.5 F L 91 18 100/64 98 01/21/17 00:12 81 16 98 01/21/17 00:00 97.6 F 90 16 90/59 L 96 Weight Admit Weight 144 lb Weight 130 lb 12.8 oz I&O: 01/20/17 01/21/17 01/22/17 06:59 06:59 06:59 Intake Total 960 960 Output Total [address] [place] [phone] Result Diagrams: 01/21/17 05:14 01/21/17 05:14 Phys Exam - Physical Examination HEENT: PERRLA, sclera anicteric Neck: no JVD, supple Respiratory: no wheezing rhonchi+ Cardiovascular: RRR, no rub Gastrointestinal: soft, non-tender, positive bowel sounds Musculoskeletal: no edema, pulses present Neurological: non-focal, moves all 4 limbs Psychiatric: A&O x 3 Dx/Plan (1) CHF (congestive heart failure) Code(s): I50.9 - HEART FAILURE, UNSPECIFIED Status: Acute Qualifiers: Congestive heart failure type: diastolic (2) Mitral regurgitation Status: Chronic (3) left index finger osteomyelitis Status: Acute Comment: is on vanc (4) COPD (chronic obstructive pulmonary disease) Status: Chronic Qualifiers: COPD type: unspecified COPD Qualified Code(s): J44.9 - Chronic obstructive pulmonary disease, unspecified (5) Chronic a-fib Code(s): I48.2 - CHRONIC ATRIAL FIBRILLATION Status: Chronic (6) Hypothyroidism Code(s): E03.9 - HYPOTHYROIDISM, UNSPECIFIED Status: Chronic Qualifiers: Hypothyroidism type: unspecified Qualified Code(s): E03.9 - Hypothyroidism , unspecified (7) CKD (chronic kidney disease) stage 3, GFR 30-59 ml/min Code(s): N18.3 - CHRONIC KIDNEY DISEASE, STAGE 3 (MODERATE) Status: Chronic - Plan is on lasix iv q12h -: may dc levaquin -: continue vanc for osteo -: inr is 1.7 on coumadin 2.5mg -: still has exertional sob, continue iv diuresis x2 doses * . Review of Systems - Medications/Allergies Allergies/Adverse Reactions: Allergies Allergy/AdvReac Type Severity Reaction Status Date / Time Penicillins Allergy Verified 01/10/17 18:04 Medications: Current Medications Acetaminophen (Tylenol) 650 mg PO Q4H PRN PRN Reason: Headache/Fever or Pain Hydrocodone Bitart/Acetaminophen ([place] 5/325) 1 tab PO Q4H PRN PRN Reason: Moderate Pain (4-6) Al Hydroxide/Mg Hydroxide (Maalox) 30 ml PO Q6H PRN PRN Reason: Heartburn or Indigestion Albuterol/Ipratropium (Duoneb) 3 ml NEB [id number] REPLACED BY [facility] Last Admin: 01/21/17 08:13 Dose: Not Given Artificial Tears (Tears Renewed 15ml Bottle) 0 drop EA EYE PRN PRN PRN Reason: Dry Eyes Aspirin (Aspirin Chewable) 81 mg PO DAILY REPLACED BY [facility] Last Admin: 01/21/17 09:22 Dose: 81 mg Benzonatate (Tessalon) 100 mg PO Q4H PRN PRN Reason: Cough Cyanocobalamin (Vitamin B-12) 1,000 mcg PO DAILY REPLACED BY [facility] Last Admin: 01/21/17 09:23 Dose: 1,000 mcg Folic Acid (Folvite) 1 mg PO DAILY REPLACED BY [facility] Last Admin: 01/21/17 09:23 Dose: 1 mg Furosemide (Lasix) 40 mg SLOW IVP 0600,1400 REPLACED BY [facility] Last Admin: 01/21/17 05:40 Dose: 40 mg Guaifenesin (Robitussin Sf) 200 mg PO Q4H PRN PRN Reason: Cough Last Admin: 01/19/17 23:22 Dose: 200 mg Hydralazine HCl (Apresoline) 10 mg SLOW IVP Q4H PRN PRN Reason: Systolic BP > 180 Levofloxacin 500 mg/ Device 100 mls @ 100 mls/hr IVPB Q24HR REPLACED BY [facility] Last Admin: 01/20/17 17:55 Dose: 100 mls Vancomycin HCl 1.25 gm/ Sodium (Chloride) 250 mls @ 166.667 mls/hr IVPB 1400 REPLACED BY [facility] Last Admin: 01/20/17 14:57 Dose: 250 mls Levothyroxine Sodium (Synthroid) 25 mcg PO 0600 REPLACED BY [facility] Last Admin: 01/21/17 05:40 Dose: 25 mcg Loperamide HCl (Imodium) 2 mg PO PRN PRN PRN Reason: Diarrhea/Loose Stools Loratadine (Claritin) 10 mg PO DAILYPRN PRN PRN Reason: Sinus Symptoms Last Admin: 01/19/17 23:22 Dose: 10 mg Magnesium Hydroxide (Milk Of Magnesium) 30 ml PO DAILYPRN PRN PRN Reason: Constipation Metoprolol Tartrate (Lopressor) 25 mg PO BID REPLACED BY [facility] Last Admin: 01/21/17 09:23 Dose: 25 mg Mineral Oil/White Petrolatum (Eucerin Cream) 0 gm TOP BIDPRN PRN PRN Reason: Dry Skin Miscellaneous Medication (Pharmacy To Dose) 1 each IVPB DAILYPRN PRN PRN Reason: LABS Miscellaneous Medication (Pharmacy To Dose) 0 each PO DAILYPRN PRN PRN Reason: LABS Mometasone Furoate/Formoterol Fumar (Dulera 200 Mcg/5 Mcg Inhaler) 2 puff INH BID-RT REPLACED BY [facility] Last Admin: 01/20/17 18:31 Dose: 2 puff Nitroglycerin (Nitrostat) 0.4 mg SL Q5MIN PRN PRN Reason: Chest Pain Last Admin: 01/18/17 18:03 Dose: 0.4 mg Ondansetron HCl (Zofran Odt) 4 mg PO Q6H PRN PRN Reason: Nausea/Vomiting Ondansetron HCl (Zofran) 4 mg IVP Q6H PRN PRN Reason: Nausea/Vomiting Pantoprazole Sodium (Protonix) 40 mg PO DAILY REPLACED BY [facility] Last Admin: 01/21/17 09:23 Dose: 40 mg Phenol (Chloraseptic [place] 180 Ml Bot) 0 ml PO PRN PRN PRN Reason: Sore Throat Senna (Senokot) 2 tab PO HSPRN PRN PRN Reason: Constipation Sodium Chloride ([place] Nasal [place] 0.65%) 0 ml EA NARE QIDPRN PRN PRN Reason: Nasal Congestion Warfarin Sodium (Coumadin) 2.5 mg PO 1700 REPLACED BY [facility] Last Admin: 01/20/17 17:55 Dose: 2.5 mg
--- NOTE | 2017-01-21 11:50 | PDOC.CTH ---
Cardiology Progress Note - Subjective His breathing is better. No chest pain, tightness ,pressure, syncope, presyncope. Still not quite back top baseline. - Objective Vital Signs Temp Pulse Resp BP Pulse Ox 01/21/17 07:50 97.6 F 89 18 110/73 96 01/21/17 04:00 97.5 F L 91 18 100/64 98 01/21/17 00:12 81 16 98 01/21/17 00:00 97.6 F 90 16 90/59 L 96 Admit Weight 144 lb Weight 130 lb 12.8 oz 01/20/17 01/21/17 01/22/17 06:59 06:59 06:59 Intake Total 960 960 Output Total 4649 1975 Balance -2090 -8013 - Physical Examination General/Neuro: alert & oriented x3, NAD Neck: no JVD present Lungs: unlabored respirations, other: (Mild bibasilar crackles. ) Heart: RRR Abdomen: NT/ND Extremities: other: (no edema.) - Telemetry Telemetry Rhythm: NSR - Labs Result Diagrams: 01/21/17 05:14 01/21/17 05:14 Troponin/CKMB CK-MB (CK-2) 2.8 ng/mL (0-6.6) 01/18/17 10:29 Troponin I 0.010 ng/mL (< 0.028) 01/18/17 16:33 - Assessment/Plan 1. Acute on chronic diastolic heart failure 2. Severe MR, flail valve 3. Severe TR 4. Pulmonary Hypertension. PLAN: - Will switch to PO diuresis today. He is on room air and looks comfortable. - Continue to trend kidney function daily.
[2017-01-21] MEDS: Mometasone/Formoterol 120 PUFF INHALER INH SCH ×2 (12:07→18:48)
[2017-01-21] MEDS: Vancomycin HCl 1.25 GM in Sodium Chloride 0.9% 250 ML 250 ML IVPB SCH (13:37)
[2017-01-21] MEDS: Warfarin Sodium 2.5 MG TAB PO SCH (16:49)
[2017-01-22 05:01] LABS: Prothrombin Time 21.5 SEC (12.0-14.7)
[2017-01-22] MEDS: Levothyroxine Sodium 25 MCG TAB PO SCH (05:41)
[2017-01-22] MEDS: Mometasone/Formoterol 120 PUFF INHALER INH SCH ×2 (07:30→19:14)
[2017-01-22] MEDS: Furosemide 40 MG TAB PO SCH (10:15)
[2017-01-22] MEDS: Metoprolol Tartrate 25 MG TAB PO SCH ×2 (10:15→22:05)
[2017-01-22] MEDS: Cyanocobalamin (Vitamin B-12) 1,000 MCG TAB PO SCH (10:15)
[2017-01-22] MEDS: Folic Acid 1 MG TAB PO SCH (10:15)
--- NOTE | 2017-01-22 11:05 | PRG ---
DATE OF SERVICE: 01/22/2017 SUBJECTIVE: Mr. Sharma is doing okay. He says his breathing seems to be okay now. He is not makin g much urine. He is not having chest pain. OBJECTIVE: VITAL SIGNS: His blood pressure is 102/59, pulse 88 and it is regular. LUNGS: Clear. CARDIAC: There is a 2-3/6 apical systolic murmur. ABDOMEN: Soft, nontender. EXTREMITIES: No edema. ASSESSMENT: 1. Congestive heart failure. 2. Mitral regurgitation, severe. 3. Renal insufficiency/renal failure, stage 3. Creatinine is rising to 1.6. His GFR is 42. PLAN: 1. Continue to monitor creatinine. We will probably have to reduce furosemide. In fact, it has now been discontinued. He is on oral furosemide. 2. Consideration for MitraClip for this patient he be a poor surgical candidate.
--- NOTE | 2017-01-22 12:21 | PDOC.PN ---
- Subjective Encounter Start Date: 01/22/17 Encounter Start Time: 08:20 Subjective: breathing better - Objective Resuscitation Status: Resuscitation Status FULL:Full Resuscitation MAR Reviewed: Yes Vital Signs & Weight: Vital Signs (12 hours) Temp Pulse Resp BP Pulse Ox 01/22/17 07:30 98 01/22/17 07:28 86 14 98 01/22/17 07:17 97.5 F L 88 16 102/59 L 96 01/22/17 04:00 97.8 F 85 16 104/56 L 98 01/22/17 00:27 80 12 Weight Admit Weight 144 lb Weight 133 lb 3.2 oz I&O: 01/21/17 01/22/17 01/23/17 06:59 06:59 06:59 Intake Total 960 840 Output Total 1975 1350 Balance -1015 -061 Result Diagrams: 01/21/17 05:14 01/21/17 05:14 Phys Exam - Physical Examination HEENT: PERRLA, moist MMs Neck: no nodes, no JVD Respiratory: no wheezing, no rales Cardiovascular: RRR, no significant murmur Gastrointestinal: soft, non-tender, positive bowel sounds Musculoskeletal: no edema, pulses present Neurological: non-focal, moves all 4 limbs Psychiatric: A&O x 3 Dx/Plan (1) CHF (congestive heart failure) Code(s): I50.9 - HEART FAILURE, UNSPECIFIED Status: Acute Qualifiers: Congestive heart failure type: diastolic (2) Mitral regurgitation Status: Chronic (3) left index finger osteomyelitis Status: Acute Comment: is on vanc (4) COPD (chronic obstructive pulmonary disease) Status: Chronic Qualifiers: COPD type: unspecified COPD Qualified Code(s): J44.9 - Chronic obstructive pulmonary disease, unspecified (5) Chronic a-fib Code(s): I48.2 - CHRONIC ATRIAL FIBRILLATION Status: Chronic (6) Hypothyroidism Code(s): E03.9 - HYPOTHYROIDISM, UNSPECIFIED Status: Chronic Qualifiers: Hypothyroidism type: unspecified Qualified Code(s): E03.9 - Hypothyroidism , unspecified (7) CKD (chronic kidney disease) stage 3, GFR 30-59 ml/min Code(s): N18.3 - CHRONIC KIDNEY DISEASE, STAGE 3 (MODERATE) Status: Chronic - Plan pt wants to go home in am -: is on oral lasix -: continue vanc, may dc levaquin -: inr is 1.8, is on coumadin 2.5mg * . Review of Systems - Medications/Allergies Allergies/Adverse Reactions: Allergies Allergy/AdvReac Type Severity Reaction Status Date / Time Penicillins Allergy Verified 01/10/17 18:04 Medications: Current Medications Acetaminophen (Tylenol) 650 mg PO Q4H PRN PRN Reason: Headache/Fever or Pain Hydrocodone Bitart/Acetaminophen ([place] 5/325) 1 tab PO Q4H PRN PRN Reason: Moderate Pain (4-6) Al Hydroxide/Mg Hydroxide (Maalox) 30 ml PO Q6H PRN PRN Reason: Heartburn or Indigestion Albuterol/Ipratropium (Duoneb) 3 ml NEB [id number] [facility] Last Admin: 01/22/17 07:28 Dose: 3 ml Artificial Tears (Tears Renewed 15ml Bottle) 0 drop EA EYE PRN PRN PRN Reason: Dry Eyes Aspirin (Aspirin Chewable) 81 mg PO DAILY [facility] Last Admin: 01/22/17 10:15 Dose: 81 mg Benzonatate (Tessalon) 100 mg PO Q4H PRN PRN Reason: Cough Cyanocobalamin (Vitamin B-12) 1,000 mcg PO DAILY [facility] Last Admin: 01/22/17 10:15 Dose: 1,000 mcg Folic Acid (Folvite) 1 mg PO DAILY [facility] Last Admin: 01/22/17 10:15 Dose: 1 mg Furosemide (Lasix) 40 mg PO DAILY-AC [facility] Last Admin: 01/22/17 10:15 Dose: 40 mg Guaifenesin (Robitussin Sf) 200 mg PO Q4H PRN PRN Reason: Cough Last Admin: 01/19/17 23:22 Dose: 200 mg Hydralazine HCl (Apresoline) 10 mg SLOW IVP Q4H PRN PRN Reason: Systolic BP > 180 Vancomycin HCl 1.25 gm/ Sodium (Chloride) 250 mls @ 166.667 mls/hr IVPB 1400 [facility] Last Admin: 01/21/17 13:37 Dose: 250 mls Levothyroxine Sodium (Synthroid) 25 mcg PO 0600 [facility] Last Admin: 01/22/17 05:41 Dose: 25 mcg Loperamide HCl (Imodium) 2 mg PO PRN PRN PRN Reason: Diarrhea/Loose Stools Loratadine (Claritin) 10 mg PO DAILYPRN PRN PRN Reason: Sinus Symptoms Last Admin: 01/19/17 23:22 Dose: 10 mg Magnesium Hydroxide (Milk Of Magnesium) 30 ml PO DAILYPRN PRN PRN Reason: Constipation Metoprolol Tartrate (Lopressor) 25 mg PO BID [facility] Last Admin: 01/22/17 10:15 Dose: 25 mg Mineral Oil/White Petrolatum (Eucerin Cream) 0 gm TOP BIDPRN PRN PRN Reason: Dry Skin Miscellaneous Medication (Pharmacy To Dose) 1 each IVPB DAILYPRN PRN PRN Reason: LABS Miscellaneous Medication (Pharmacy To Dose) 0 each PO DAILYPRN PRN PRN Reason: LABS Mometasone Furoate/Formoterol Fumar (Dulera 200 Mcg/5 Mcg Inhaler) 2 puff INH BID-RT [facility] Last Admin: 01/22/17 07:30 Dose: 2 puff Nitroglycerin (Nitrostat) 0.4 mg SL Q5MIN PRN PRN Reason: Chest Pain Last Admin: 01/18/17 18:03 Dose: 0.4 mg Ondansetron HCl (Zofran Odt) 4 mg PO Q6H PRN PRN Reason: Nausea/Vomiting Ondansetron HCl (Zofran) 4 mg IVP Q6H PRN PRN Reason: Nausea/Vomiting Pantoprazole Sodium (Protonix) 40 mg PO DAILY [facility] Last Admin: 01/22/17 10:15 Dose: 40 mg Phenol (Chloraseptic [place] 180 Ml Bot) 0 ml PO PRN PRN PRN Reason: Sore Throat Senna (Senokot) 2 tab PO HSPRN PRN PRN Reason: Constipation Sodium Chloride ([place] Nasal [place] 0.65%) 0 ml EA NARE QIDPRN PRN PRN Reason: Nasal Congestion Warfarin Sodium (Coumadin) 3 mg PO 1700 KRISTIN
[2017-01-22 13:41] LABS: Vancomycin, Trough 16.2 ug/mL
[2017-01-22] MEDS: Vancomycin HCl 1.25 GM in Sodium Chloride 0.9% 250 ML 250 ML IVPB SCH (15:03)
[2017-01-22] MEDS: Warfarin Sodium 3 MG TAB PO SCH (18:17)
[2017-01-23] MEDS: Levothyroxine Sodium 25 MCG TAB PO SCH (05:26)
[2017-01-23 06:47] LABS: Anion Gap 10 mmol/L (10-20); BUN (Urea Nitrogen) 20 mg/dL (8.4-25.7); Calc. Creatinine Clearance 41 mL/min (70-130); Calcium 8.7 mg/dL (7.8-10.44); Carbon Dioxide 28 mmol/L (23-31); Chloride 101 mmol/L (98-107); Estimated GFR-MDRD 55
[2017-01-23] MEDS: Mometasone/Formoterol 120 PUFF INHALER INH SCH ×2 (07:29→18:53)
[2017-01-23] MEDS: Metoprolol Tartrate 25 MG TAB PO SCH ×2 (08:07→20:05)
[2017-01-23] MEDS: Folic Acid 1 MG TAB PO SCH (08:07)
[2017-01-23] MEDS: Furosemide 40 MG TAB PO SCH (08:07)
[2017-01-23] MEDS: Cyanocobalamin (Vitamin B-12) 1,000 MCG TAB PO SCH (08:08)
[2017-01-23 08:34] LABS: Band 1 % (5-11); Hematocrit 41.9 % (42.0-52.0); Mean Platelet Volume 6.7 fL (7.4-10.4); Neutrophil 52 % (42-75); Red Blood Cell (RBC) Count 4.05 mill/uL (4.70-6.10)
--- NOTE | 2017-01-23 09:54 | PDOC.PN ---
- Subjective Encounter Start Date: 01/23/17 Encounter Start Time: 08:30 Subjective: no sob, feels better - Objective Resuscitation Status: Resuscitation Status FULL:Full Resuscitation MAR Reviewed: Yes Vital Signs & Weight: Vital Signs (12 hours) Temp Pulse Resp BP Pulse Ox 01/23/17 07:28 84 16 97 01/23/17 07:20 97.8 F 80 18 102/60 96 01/23/17 04:00 98.0 F 93 18 97/59 L 96 01/23/17 00:00 97.7 F 92 16 108/61 97 01/22/17 23:52 91 20 93 L Weight Admit Weight 144 lb Weight 133 lb 6.4 oz I&O: 01/22/17 01/23/17 01/24/17 06:59 06:59 06:59 Intake Total 840 1528 Output Total 1350 600 Balance -510 928 Result Diagrams: 01/23/17 06:11 01/23/17 06:11 Phys Exam - Physical Examination HEENT: PERRLA, moist MMs Neck: no JVD, supple Respiratory: no wheezing, no rales Cardiovascular: RRR, no significant murmur Gastrointestinal: soft, non-tender, positive bowel sounds Musculoskeletal: no edema, pulses present Neurological: non-focal, moves all 4 limbs Psychiatric: A&O x 3 Dx/Plan (1) CHF (congestive heart failure) Code(s): I50.9 - HEART FAILURE, UNSPECIFIED Status: Acute Qualifiers: Congestive heart failure type: diastolic (2) Mitral regurgitation Status: Chronic (3) left index finger osteomyelitis Status: Acute Comment: is on vanc (4) COPD (chronic obstructive pulmonary disease) Status: Chronic Qualifiers: COPD type: unspecified COPD Qualified Code(s): J44.9 - Chronic obstructive pulmonary disease, unspecified (5) Chronic a-fib Code(s): I48.2 - CHRONIC ATRIAL FIBRILLATION Status: Chronic (6) Hypothyroidism Code(s): E03.9 - HYPOTHYROIDISM, UNSPECIFIED Status: Chronic Qualifiers: Hypothyroidism type: unspecified Qualified Code(s): E03.9 - Hypothyroidism , unspecified (7) CKD (chronic kidney disease) stage 3, GFR 30-59 ml/min Code(s): N18.3 - CHRONIC KIDNEY DISEASE, STAGE 3 (MODERATE) Status: Chronic - Plan on oral lasix -: continue vanc for osteo -: wants to go home in am -: is on coumadin with inr of 1.7 -: to ambulate on floor as tolerated * . Review of Systems - Medications/Allergies Allergies/Adverse Reactions: Allergies Allergy/AdvReac Type Severity Reaction Status Date / Time Penicillins Allergy Verified 01/10/17 18:04 Medications: Current Medications Acetaminophen (Tylenol) 650 mg PO Q4H PRN PRN Reason: Headache/Fever or Pain Hydrocodone Bitart/Acetaminophen ([place] 5/325) 1 tab PO Q4H PRN PRN Reason: Moderate Pain (4-6) Al Hydroxide/Mg Hydroxide (Maalox) 30 ml PO Q6H PRN PRN Reason: Heartburn or Indigestion Albuterol/Ipratropium (Duoneb) 3 ml NEB [id number] [facility] Last Admin: 01/23/17 07:28 Dose: 3 ml Artificial Tears (Tears Renewed 15ml Bottle) 0 drop EA EYE PRN PRN PRN Reason: Dry Eyes Aspirin (Aspirin Chewable) 81 mg PO DAILY [facility] Last Admin: 01/23/17 08:08 Dose: 81 mg Benzonatate (Tessalon) 100 mg PO Q4H PRN PRN Reason: Cough Cyanocobalamin (Vitamin B-12) 1,000 mcg PO DAILY [facility] Last Admin: 01/23/17 08:08 Dose: 1,000 mcg Folic Acid (Folvite) 1 mg PO DAILY [facility] Last Admin: 01/23/17 08:07 Dose: 1 mg Furosemide (Lasix) 40 mg PO DAILY-AC [facility] Last Admin: 01/23/17 08:07 Dose: 40 mg Guaifenesin (Robitussin Sf) 200 mg PO Q4H PRN PRN Reason: Cough Last Admin: 01/19/17 23:22 Dose: 200 mg Hydralazine HCl (Apresoline) 10 mg SLOW IVP Q4H PRN PRN Reason: Systolic BP > 180 Vancomycin HCl 1.25 gm/ Sodium (Chloride) 250 mls @ 166.667 mls/hr IVPB 1400 [facility] Last Admin: 01/22/17 15:03 Dose: 250 mls Levothyroxine Sodium (Synthroid) 25 mcg PO 0600 [facility] Last Admin: 01/23/17 05:26 Dose: 25 mcg Loperamide HCl (Imodium) 2 mg PO PRN PRN PRN Reason: Diarrhea/Loose Stools Loratadine (Claritin) 10 mg PO DAILYPRN PRN PRN Reason: Sinus Symptoms Last Admin: 01/19/17 23:22 Dose: 10 mg Magnesium Hydroxide (Milk Of Magnesium) 30 ml PO DAILYPRN PRN PRN Reason: Constipation Metoprolol Tartrate (Lopressor) 25 mg PO BID [facility] Last Admin: 01/23/17 08:07 Dose: 25 mg Mineral Oil/White Petrolatum (Eucerin Cream) 0 gm TOP BIDPRN PRN PRN Reason: Dry Skin Miscellaneous Medication (Pharmacy To Dose) 1 each IVPB DAILYPRN PRN PRN Reason: LABS Miscellaneous Medication (Pharmacy To Dose) 0 each PO DAILYPRN PRN PRN Reason: LABS Mometasone Furoate/Formoterol Fumar (Dulera 200 Mcg/5 Mcg Inhaler) 2 puff INH BID-RT [facility] Last Admin: 01/23/17 07:29 Dose: 2 puff Nitroglycerin (Nitrostat) 0.4 mg SL Q5MIN PRN PRN Reason: Chest Pain Last Admin: 01/18/17 18:03 Dose: 0.4 mg Ondansetron HCl (Zofran Odt) 4 mg PO Q6H PRN PRN Reason: Nausea/Vomiting Ondansetron HCl (Zofran) 4 mg IVP Q6H PRN PRN Reason: Nausea/Vomiting Pantoprazole Sodium (Protonix) 40 mg PO DAILY [facility] Last Admin: 01/23/17 08:07 Dose: 40 mg Phenol (Chloraseptic [place] 180 Ml Bot) 0 ml PO PRN PRN PRN Reason: Sore Throat Senna (Senokot) 2 tab PO HSPRN PRN PRN Reason: Constipation Sodium Chloride ([place] Nasal [place] 0.65%) 0 ml EA NARE QIDPRN PRN PRN Reason: Nasal Congestion Warfarin Sodium (Coumadin) 3 mg PO 1700 [facility] Last Admin: 01/22/17 18:17 Dose: 3 mg
--- NOTE | 2017-01-23 10:10 | RAD ---
PORTABLE CHEST: Date: 01/23/17 COMPARISON: 01/18/17 study. HISTORY: Dyspnea. FINDINGS: A left-sided PICC line remains in place. Heart size appears enlarged. There is elevation of the left hemidiaphragm. There is some linear atelectatic change in the left base. The patchy parenchymal carrasco es in the right lung have resolved since the previous exam. IMPRESSION: 1. Cardiomegaly, pulmonary edema type changes, and possible infiltrative changes or edema within the right lung have resolved. 2. Elevated left hemidiaphragm with atelectatic change in the left base. POS: [facility]
[2017-01-23] MEDS: Vancomycin HCl 1.25 GM in Sodium Chloride 0.9% 250 ML 250 ML IVPB SCH (13:23)
--- NOTE | 2017-01-23 15:06 | PRG ---
DATE OF SERVICE: 01/23/2017 SUBJECTIVE: Mr. Sharma is feeling well. He is resting comfortably, sleeping. No chest pain or pre ssure. PHYSICAL EXAMINATION: VITAL SIGNS: Blood pressure 103/62, pulse 94, regular. LUNGS: Clear. CARDIAC: Has apical systolic murmur as before. ASSESSMENT: 1. Mitral regurgitation, severe. 2. Congestive heart failure. 3. Renal failure actually improved with creatinine now is 1.27. PLAN: 1. Continue current medical regimen. 2. Consider ? [facility] as outpatient, Dr. Lord will resume care tomorrow. Obviously, they may ne ed to make sure there is no active infection before considering this is a possibility.
[2017-01-23] MEDS: Warfarin Sodium 3 MG TAB PO SCH (17:40)
[2017-01-24 05:08] LABS: Prothrombin Time 18.9 SEC (12.0-14.7)
[2017-01-24] MEDS: Levothyroxine Sodium 25 MCG TAB PO SCH (05:12)
[2017-01-24] MEDS: Mometasone/Formoterol 120 PUFF INHALER INH SCH (07:12)
[2017-01-24] MEDS: Furosemide 40 MG TAB PO SCH (07:32)
[2017-01-24] MEDS: Cyanocobalamin (Vitamin B-12) 1,000 MCG TAB PO SCH (09:15)
[2017-01-24] MEDS: Folic Acid 1 MG TAB PO SCH (09:15)
[2017-01-24] MEDS: Metoprolol Tartrate 25 MG TAB PO SCH (09:15)
--- NOTE | 2017-01-24 11:05 | PDOC.PN ---
- Subjective Encounter Start Date: 01/24/17 Encounter Start Time: 09:30 Subjective: feels good, no sob - Objective Resuscitation Status: Resuscitation Status FULL:Full Resuscitation MAR Reviewed: Yes Vital Signs & Weight: Vital Signs (12 hours) Temp Pulse Resp BP Pulse Ox 01/24/17 07:28 97.5 F L 75 16 114/71 100 01/24/17 07:14 96 01/24/17 07:13 80 16 96 01/24/17 04:00 97.6 F 81 20 94/54 L 92 L 01/24/17 00:14 88 16 Weight Admit Weight 144 lb Weight 134 lb 7 oz I&O: 01/23/17 01/24/17 01/25/17 06:59 06:59 06:59 Intake Total 1528 1280 200 Output Total 600 1150 Balance 928 130 200 Result Diagrams: 01/23/17 06:11 01/23/17 06:11 Phys Exam - Physical Examination HEENT: PERRLA, moist MMs Neck: no JVD, supple Respiratory: no wheezing, no rales Cardiovascular: RRR, no significant murmur Gastrointestinal: soft, non-tender, positive bowel sounds Musculoskeletal: no edema, pulses present Neurological: non-focal, moves all 4 limbs Psychiatric: A&O x 3 Dx/Plan (1) CHF (congestive heart failure) Code(s): I50.9 - HEART FAILURE, UNSPECIFIED Status: Acute Qualifiers: Congestive heart failure type: diastolic (2) Mitral regurgitation Status: Chronic (3) left index finger osteomyelitis Status: Acute Comment: is on vanc (4) COPD (chronic obstructive pulmonary disease) Status: Chronic Qualifiers: COPD type: unspecified COPD Qualified Code(s): J44.9 - Chronic obstructive pulmonary disease, unspecified (5) Chronic a-fib Code(s): I48.2 - CHRONIC ATRIAL FIBRILLATION Status: Chronic (6) Hypothyroidism Code(s): E03.9 - HYPOTHYROIDISM, UNSPECIFIED Status: Chronic Qualifiers: Hypothyroidism type: unspecified Qualified Code(s): E03.9 - Hypothyroidism , unspecified (7) CKD (chronic kidney disease) stage 3, GFR 30-59 ml/min Code(s): N18.3 - CHRONIC KIDNEY DISEASE, STAGE 3 (MODERATE) Status: Chronic - Plan hemostable -: dc pt home -: to continue vanc as before for osteo -: oral lasix and coumadin at home dose * .
[2017-01-24 12:15] VITALS: BP 111/71; TEMP 97.4
[2017-01-24] MEDS ORDERED: Warfarin Sodium 5 MG TAB PO SCH (17:00)
--- NOTE | 2017-01-24 18:49 | DIS ---
DATE OF ADMISSION: 01/18/2017 DATE OF DISCHARGE: 01/24/2017 DISCHARGE DISPOSITION: To home. PRIMARY DISCHARGE DIAGNOSES: Acute on chronic congestive heart failure exacerbation with diastolic dysfunction, resolved, chronic mitral regurgitation. SECONDARY DISCHARGE DIAGNOSES: Left index finger osteomyelitis, COPD, chronic atrial fibrillation which is rate controlled, hypothyroidism, chronic kidney disease stage III. PROCEDURES DONE DURING HOSPITALIZATION: The patient has had an echo with 2D Doppler done which showed EF of 55-60%, right atrium was moderately enlarged. There is severe holosystolic prolapse of posterior leaflet of mitral valve, severe mitral regurgitation is seen, severe tricuspid regurgitation is seen, RV systolic pressures of 62 mmHg consistent with moderate pulmonary hypertension. CT angio chest done showed no evidence of central or segmental pulmonary embolus. There was pulmonary vascular congestion, moderate to large bilateral pleural effusions were seen on the CT. H&H 13 and 41, platelet count 190, BUN and creatinine 20 and 1.2 on the day of discharge. Troponin I x2 is negative. Discharge INR is 1.5. The patient's vancomycin trough on the was 16.2. DISCHARGE MEDICATIONS: Aspirin 81 mg p.o. daily, Coumadin 5 mg p.o. daily, vancomycin 1.25 mg IV daily per Dr. Monae' advice for the left index finger osteomyelitis, Protonix 40 mg p.o. daily, Lopressor 50 mg p.o. twice daily, levothyroxine 225 mcg p.o. daily, [place] p.r.n. for pain, Lasix 20 mg p.o. daily. ALLERGIES: PENICILLIN. INPATIENT CONSULTS: Dr. Lord for Cardiology. DISCHARGE PLAN: Patient to follow up with primary care physician in 1 week, Dr. Monae as advised. BRIEF COURSE DURING HOSPITALIZATION: The patient initially got admitted for shortness of breath. He was found to be in CHF exacerbation. The patient has known history of diastolic dysfunction. He also has severe mitral regurgitation. He has had consultation with Dr. Lord for Cardiology. The patient was gently diuresed during his stay here. He was continued on vancomycin for left index finger osteomyelitis while he was in the hospital. He has diuresed well. He was switched over to oral Lasix once daily. Prior to discharge, he is ambulating in the room and is eating well. He has no orthopnea or exertional dyspnea at the time of discharge. He needs to continue his vancomycin as before on discharge. He also needs to follow up with Dr. Monae as before with weekly labs as patient is on vancomycin. He also needs INR checks for his Coumadin as before. Please see a [id number] documentation on [employer] for the day of discharge. ODNNY
--- NOTE | 2017-02-28 13:52 | EKG ---
Test Reason : Blood Pressure : / mmHG Vent. Rate : 095 BPM Atrial Rate : 108 BPM P-R Int : 000 ms QRS Dur : 090 ms QT Int : 342 ms P-R-T Axes : 000 -14 100 degrees QTc Int : 429 ms Atrial fibrillation Low voltage QRS Nonspecific T wave abnormality , probably digitalis effect Abnormal ECG Confirmed by ALEXA CRUZ, NICOLÁS ([id number]), scientific editor JOHNNIE JONES ([id number]) on 02/28/2017 1:52:10 PM Referred By: Confirmed By:NICOLÁS LIU MD
== END 2017-01-24 13:03 | disposition home health service (06) | DRG 291 ==
LOC: ERS 10:07 → 2NO 14:24
PROVIDERS: ADMIT Internal Medicine; ATTEND Internal Medicine
PROC: 02HV33Z Insertion of Infusion Device into Superior Vena Cava, Percutaneous Approach (ICD-10-PCS; principal; 2017-01-18)
DX: I13.0 Hypertensive heart and chronic kidney disease with heart failure and stage 1 through stage 4 chronic kidney disease, or unspecified chronic kidney disease (principal); I50.33 Acute on chronic diastolic (congestive) heart failure; E44.0 Moderate protein-calorie malnutrition; J44.9 Chronic obstructive pulmonary disease, unspecified; M86.8X4 Other osteomyelitis, hand; I08.1 Rheumatic disorders of both mitral and tricuspid valves; N18.3 Chronic kidney disease, stage 3 (moderate); I48.2 Chronic atrial fibrillation; I27.20 Pulmonary hypertension, unspecified; E03.9 Hypothyroidism, unspecified; K21.9 Gastro-esophageal reflux disease without esophagitis; Z82.49 Family history of ischemic heart disease and other diseases of the circulatory system; M19.90 Unspecified osteoarthritis, unspecified site; Z68.21 Body mass index [BMI] 21.0-21.9, adult
CPT/HCPCS: 36415; 36416; 71010; 71275; 80048; 80053; 80202; 81001; 82550; 82553; 83690; 83735; 83880; 84484; 84550; 85025; 85379; 85610; 85730; 86140; 93005; 93306; 93798; 94640; 94664; 94760; 96365; 96375; A4216; G8978-GP-CI; G8979-GP-CI; G8980-GP-CI; J1160; J1940; J1956; J3370; J7050; J7620

== ENCOUNTER 2017-01-25 09:22 | Outpatient (CLI) | payer MEDICARE ==
--- NOTE | 2017-01-25 10:29 | SJPRAD ---
CHEST PA AND LATERAL 2 VIEWS: HISTORY: A 76-year-old male with followup congestive heart failure. COMPARISON: 01/23/17. FINDINGS: Left hemidiaphragm elevation. Increased linear and interstitial markings noted bilaterally. No conf luent pneumonia, overt edema, or significant pleural effusion. IMPRESSION: Stable left hemidiaphragm elevation. Left PICC line. No significant acute intrathoracic disease. POS: [facility]
== END 2017-01-25 09:23 | disposition home or self-care (01) ==
LOC: MWLC RAD 09:22
PROVIDERS: ATTEND Family Medicine
DX: J91.8 Pleural effusion in other conditions classified elsewhere (principal); J98.6 Disorders of diaphragm

== ENCOUNTER 2017-01-30 07:21 | Inpatient (IN) | payer MEDICARE ==
[2017-01-30] MEDS ORDERED: Ondansetron ODT 4 MG TAB SL PRN (09:36)
[2017-01-30] MEDS ORDERED: Ondansetron HCl/PF 4 MG/2 ML Vial IVP PRN (09:36)
[2017-01-30] MEDS ORDERED: HYDROcodone/Acetaminophen 7.5/325 mg Tablet PO PRN (09:47)
[2017-01-30 10:32] VITALS: BMI 21.3
[2017-01-30] MEDS ORDERED: Furosemide 20 MG TAB PO SCH (14:00)
--- NOTE | 2017-01-30 16:41 | HP ---
REASON FOR ADMISSION: COPD exacerbation and diarrhea. HISTORY OF PRESENT ILLNESS: The patient gives history of having diarrhea which was slimy and had nearly 10 episodes yesterday. He had another episode this am. This was associated with shortness of breath. He has been wheezing and tried to take his nebulization. He woke up around 11:00 p.m. to use the restroom and could not go back to his bed. He got worried that he may not be able to breathe, hence called EMS and was taken to [facility]. The patient has significant history of index finger osteomyelitis and is on vancomycin. No complaints of chest pain or palpitations. He was given albuterol nebulizer x1, Lasix 20 mg IV x1, Solu-Medrol 125 mg IV x1 in [facility] and was transferred here. PAST MEDICAL AND SURGICAL HISTORY: History of CHF, chronic atrial fibrillation , COPD, left index finger osteomyelitis, on vancomycin; hypothyroidism, hypertension, appendectomy, tonsillectomy, surgery in his ears and nose. PERSONAL HISTORY: Quit smoking years ago. Has smoked cigars as well previously. Does not abuse alcohol or drugs. Lives with his girlfriend. FAMILY HISTORY: Has history of coronary artery disease among several family members. CURRENT MEDICATIONS: Patient is on vancomycin 1.25 grams IV daily, Coumadin 5 mg daily, Protonix 40 mg daily, Lopressor 50 mg twice daily, levothyroxine 25 mcg daily, [place] p.r.n. for pain, Lasix 20 mg daily, aspirin 81 mg daily. ALLERGIES: PENICILLIN. REVIEW OF SYSTEMS: The following complete review of systems was negative, unless otherwise mentioned in the HPI or below: Constitutional: Weight loss or gain, ability to conduct usual activities. Skin: Rash, itching. Eyes: Double vision, pain. ENT/Mouth: Nose bleeding, neck stiffness, pain, tenderness. Cardiovascular: Palpitations, dyspnea on exertion, orthopnea. Respiratory: Shortness of breath, wheezing, cough, hemoptysis, fever or night sweats. Gastrointestinal: Poor appetite, abdominal pain, heartburn, nausea, vomiting, constipation, or diarrhea. Genitourinary: Urgency, frequency, dysuria, nocturia. Musculoskeletal: Pain, swelling. Neurologic/Psychiatric: Anxiety, depression. Allergy/Immunologic: Skin rash, bleeding tendency. PHYSICAL EXAMINATION: GENERAL: The patient is a 76-year-old male who is currently not in any acute distress at present. VITAL SIGNS: Blood pressure 136/90, pulse 100 per minute, respiratory rate 18 per minute, temperature 98.8 degrees Fahrenheit, saturating 94% on room air. NECK: Supple, no elevated JVD. HEENT: Extraocular muscles intact. Pupils reacting to light. Oral cavity mucous membranes are moist. No exudates or congestion. CARDIOVASCULAR: S1, S2 heard. Regular rhythm. RESPIRATORY: Air entry 1+ bilaterally. Scattered wheezes plus bilaterally. ABDOMEN: Soft, bowel sounds heard. No tenderness, rigidity or guarding. EXTREMITIES: No peripheral edema or calf tenderness. VASCULAR SYSTEM: Peripheral pulses 1+ bilateral. No ischemic ulcerations or gangrene. CENTRAL NERVOUS SYSTEM: No gross focal deficits seen. Patient is alert, awake , oriented well. PSYCHIATRIC: The patient's mood is euthymic. No hallucinations or delusions. LABORATORY AND X-RAY FINDINGS: Please note most of his labs are done at [facility] and the labs are BNP 392, PT/INR 28 and 2.6, BUN 28, creatinine 1.5. Electrolytes: Sodium is 140, potassium 4.4. Serum bicarbonate is 27. TSH 3.47. AST 55, ALT 44, CK levels 44, troponin I 0.01. Lactic acid was 2.2, magnesium is 2.0, albumin 4.2, total bilirubin 0.9, lipase is 25. White count of 12, H&H 14 and 45, platelet count 176 with 84% neutrophils. Chest x-ray done there shows left basilar atelectasis, otherwise no acute infiltrate. CLINICAL IMPRESSION AND PLAN: The patient will be under observation on medical floor for profuse diarrhea with him being on antibiotics to rule out Clostridium difficile and also mild chronic obstructive pulmonary disease exacerbation. We will continue his vancomycin as before. He will be on DuoNebs q.[address] him on a small dose of steroids and continue his Lopressor, Pepcid, aspirin, and levothyroxine as before. He will be on Lasix 20 mg twice daily as well. Stool for Clostridium difficile and cultures will be obtained. If patient's stool studies were negative, we will try to give him Lomotil to control his diarrhea and if he is ambulating comfortably with no shortness of breath, he can be discharged in the morning. The patient has a followup appointment with Dr. Cannon tomorrow and in view of him being in the hospital, we will consult Dr. Cannon to review his osteomyelitis of left index finger. DONNY
[2017-01-30] MEDS: Warfarin Sodium 5 MG TAB PO SCH (17:38)
[2017-01-30] MEDS: Vancomycin HCl 1.25 GM in Sodium Chloride 0.9% 250 ML 250 ML IVPB SCH (17:38)
[2017-01-30] MEDS: Metoprolol Tartrate 50 MG TAB PO SCH (21:36)
[2017-01-31] MEDS: Levothyroxine Sodium 25 MCG TAB PO SCH (05:11)
[2017-01-31 05:19] LABS: #Lymphocytes 0.6 thou/uL (1.20-3.40); #Monocytes 0.4 thou/uL (0.11-0.59); #Neutrophils 5.7 thou/uL (1.40-6.50); %Basophils 0.2 % (0.0-1.0); %Eosinophils 0.2 % (0.0-10.0); %Lymphocytes 8.3 % (21.0-51.0); %Monocytes 5.5 % (0.0-10.0); Hematocrit 39.5 % (42.0-52.0); Mean Platelet Volume 7.8 fL (7.4-10.4); Red Blood Cell (RBC) Count 3.87 mill/uL (4.70-6.10); White Blood Cell (WBC) Count 6.7 thou/uL (4.8-10.8)
[2017-01-31 05:37] LABS: ALT (SGPT) 29 U/L (8-55); AST (SGOT) 32 U/L (5-34); Alkaline Phosphatase 92 U/L (40-150); Anion Gap 9 mmol/L (10-20); BUN (Urea Nitrogen) 26 mg/dL (8.4-25.7); Bilirubin, Total 0.7 mg/dL (0.2-1.2); Calc. Creatinine Clearance 48 mL/min (70-130); Calcium 8.7 mg/dL (7.8-10.44); Carbon Dioxide 29 mmol/L (23-31); Chloride 102 mmol/L (98-107); Estimated GFR-MDRD 66; Globulin 2.3 g/dL (2.4-3.5); Protein, Total 5.6 g/dL (5.8-8.1)
[2017-01-31] MEDS: Famotidine 20 MG TAB PO SCH (08:19)
[2017-01-31] MEDS: Metoprolol Tartrate 50 MG TAB PO SCH ×2 (08:20→20:11)
[2017-01-31] MEDS ORDERED: Furosemide 20 MG TAB PO SCH (09:00)
[2017-01-31] MEDS ORDERED: Enoxaparin Sodium 40 MG/0.4 ML SYRINGE SC SCH (09:00)
--- NOTE | 2017-01-31 09:21 | PDOC.PN ---
- Subjective Encounter Start Date: 01/31/17 Encounter Start Time: 07:00 Subjective: still has diarrhea, no nausea -: dry cough, no wheezing - Objective MAR Reviewed: Yes Vital Signs & Weight: Vital Signs (12 hours) Temp Pulse Resp BP Pulse Ox 01/31/17 07:50 97.6 F 120 H 16 97 01/31/17 07:35 97.6 F 120 H 16 101/62 97 Result Diagrams: 01/31/17 05:00 01/31/17 05:00 Phys Exam - Physical Examination HEENT: PERRLA, moist MMs Neck: no JVD, supple Respiratory: no wheezing, no rales Cardiovascular: no significant murmur, irregular Gastrointestinal: soft, non-tender, positive bowel sounds Musculoskeletal: no edema, pulses present Neurological: non-focal, moves all 4 limbs Psychiatric: A&O x 3 Dx/Plan (1) C. difficile colitis Status: Acute (2) CHF (congestive heart failure) Code(s): I50.9 - HEART FAILURE, UNSPECIFIED Status: Chronic Comment: well compensated now (3) left index finger osteomyelitis Status: Acute Comment: is on vanc (4) COPD (chronic obstructive pulmonary disease) Status: Chronic Qualifiers: COPD type: COPD with acute exacerbation Qualified Code(s): J44.1 - Chronic obstructive pulmonary disease with (acute) exacerbation Comment: resolving (5) Chronic a-fib Code(s): I48.2 - CHRONIC ATRIAL FIBRILLATION Status: Chronic Comment: rate controlled (6) Hypothyroidism Code(s): E03.9 - HYPOTHYROIDISM, UNSPECIFIED Status: Chronic Qualifiers: Hypothyroidism type: acquired Qualified Code(s): E03.9 - Hypothyroidism, unspecified - Plan oral vanc and iv vanc -: switch to inpatient as pt is still symptomatic -: copd flare up is resolving, oral prednisone rapid taper -: nebs, to amb as tolerated -: f/u with and lonnie today * . Review of Systems - Medications/Allergies Allergies/Adverse Reactions: Allergies Allergy/AdvReac Type Severity Reaction Status Date / Time Penicillins Allergy Verified 01/10/17 18:04 Medications: Current Medications Acetaminophen (Tylenol) 650 mg PO Q4H PRN PRN Reason: Headache/Fever or Pain Hydrocodone Bitart/Acetaminophen ([place] 7.5/325) 1 tab PO Q8H PRN PRN Reason: Moderate Pain (4-6) Albuterol/Ipratropium (Duoneb) 3 ml NEB [id number] [facility] Last Admin: 01/31/17 06:43 Dose: 3 ml Aspirin (Aspirin Chewable) 81 mg PO DAILY [facility] Last Admin: 01/31/17 08:18 Dose: 81 mg Enoxaparin Sodium (Lovenox) 40 mg SC 0900 [facility] Last Admin: 01/31/17 08:24 Dose: 40 mg Famotidine (Pepcid) 20 mg PO DAILY [facility] Last Admin: 01/31/17 08:19 Dose: 20 mg Furosemide (Lasix) 20 mg PO DAILY [facility] Guaifenesin/Dextromethorphan (Robitussin Dm) 15 ml PO Q4H PRN PRN Reason: Cough Vancomycin HCl 1.25 gm/ Sodium (Chloride) 250 mls @ 166.667 mls/hr IVPB 1800 [facility] Last Admin: 01/30/17 17:38 Dose: 250 mls Levothyroxine Sodium (Synthroid) 25 mcg PO 0600 [facility] Last Admin: 01/31/17 05:11 Dose: 25 mcg Metoprolol Tartrate (Lopressor) 50 mg PO BID [facility] Last Admin: 01/31/17 08:20 Dose: 50 mg Prednisone (Prednisone) 5 mg PO QAM-WM [facility] Stop: 02/01/17 23:59 Vancomycin HCl (First Vancomycin) 125 mg PO QID [facility] Warfarin Sodium (Coumadin) 5 mg PO 1700 [facility] Last Admin: 01/30/17 17:38 Dose: 5 mg
[2017-01-31] MEDS: Vancomycin HCl 25 MG/ML Oral PO SCH ×4 (09:24→20:11)
[2017-01-31] MEDS: Furosemide 20 MG TAB PO SCH (09:26)
[2017-01-31] MEDS: predniSONE 5 MG TAB PO SCH (09:26)
--- NOTE | 2017-01-31 12:04 | CON ---
DATE OF CONSULTATION: 01/31/2017 REASON FOR CONSULTATION: Clostridium difficile colitis and left index finger infection. HISTORY OF PRESENT ILLNESS: A 76-year-old whom I had evaluated on 01/07 when he presented with a history of atrial fibrillation, ischemic cardiomyopathy and left index finger laceration and then subsequently developed inflammatory changes with osteomyelitis. Patient had surgical debridement and during the procedure of debridement, there was evidence of quite extensive osteomyelitis, which required debridement and tenosynovectomy. The patient now has developed profuse diarrhea for the past few days. The patient had been treated with vancomycin. The end date of therapy calculated at 02/17. The last vancomycin trough was 16.2 on 01/22 and creatinine 1.08 and white cell count 6.7. Microbiology has been reviewed and he had methicillin-sensitive Staphylococcus aureus. Actually, a C. diff toxin PCR was done at this time, which is positive. Patient is little bit apprehensive because of the developments, otherwise no headaches, visual symptoms, sore throat, odynophagia or dysphagia. Some cough. No sputum production, no vomiting, no hematemesis, melena or hematochezia. No abdominal pain. No genitourinary symptoms. No joint symptoms outside the area of involvement. The left index finger distal aspect appears to have no structure to it and is quite flaccid. PAST MEDICAL HISTORY: Atrial fibrillation with ischemic heart disease. PAST SURGICAL HISTORY: Appendectomy and recent osteomyelitis, left index finger. ALLERGIES: PENICILLIN with angioedema. MEDICATION LIST: Hydrocodone, warfarin, vancomycin intravenously and currently on vancomycin oral administration. PHYSICAL EXAMINATION: VITAL SIGNS: Essentially normal except for some tachycardia. SKIN: Exam of the left index finger incision shows stitches in place, a little bit of erythema. The tip of the index finger is a little bit flattened and soft , but no overt drainage or other type of inflammatory change. No lymphadenopathy. HEENT: Noncontributory. LUNGS: Clear to auscultation and percussion. HEART: S1 and S2, regular rate. ABDOMEN: Soft and nondistended. Bowel sounds are somewhat increased. No tenderness. No bladder distention. EXTREMITIES: Moves lower extremities equally. NEUROLOGIC: Cognitive function appears to be intact. LABORATORY DATA: White cell count 6.7, hemoglobin 12.8 and platelets 127,000. INR 2.6. Sodium 136, creatinine 1.08. Liver profile normal. Albumin 3.3. ASSESSMENT AND DISCUSSION: 1. Atrial fibrillation with ischemic cardiomyopathy. 2. Laceration of the left index finger with osteomyelitis, status post debridement, now with Clostridium difficile colitis. DISCUSSION: The patient to be continued on oral vancomycin for 10 days and I would probably treat him with a taper of vancomycin schedule as well since he is going to be on antimicrobials for another 2 weeks at least. The vancomycin intravenously tends to be less likely to be associated with C. diff colitis, but he has developed this complication nonetheless. The end date of therapy for the left index finger treatment will be 02/17 and I am not sure if he is going to be able to retain the tip of the index finger since it is totally flaccid and the structure of the bone appears to have been destroyed. MTDD
[2017-01-31] MEDS: Warfarin Sodium 5 MG TAB PO SCH (17:51)
[2017-01-31] MEDS: Vancomycin HCl 1.25 GM in Sodium Chloride 0.9% 250 ML 250 ML IVPB SCH (18:11)
[2017-02-01] MEDS: Levothyroxine Sodium 25 MCG TAB PO SCH (04:27)
[2017-02-01 05:39] LABS: Prothrombin Time 41.2 SEC (12.0-14.7)
[2017-02-01] MEDS: predniSONE 5 MG TAB PO SCH (08:26)
[2017-02-01] MEDS: Famotidine 20 MG TAB PO SCH (08:26)
[2017-02-01] MEDS: Furosemide 20 MG TAB PO SCH (08:26)
[2017-02-01] MEDS: Metoprolol Tartrate 50 MG TAB PO SCH ×2 (08:26→20:11)
[2017-02-01] MEDS: Multivitamin W/ Minerals 1 TAB PO SCH (08:31)
[2017-02-01] MEDS: Saccharomyces boulardii 250 MG CAP PO SCH (08:31)
[2017-02-01] MEDS: Vancomycin HCl 25 MG/ML Oral PO SCH ×4 (08:32→20:10)
[2017-02-01] MEDS: Cyanocobalamin (Vitamin B-12) 1,000 MCG TAB PO SCH (08:32)
[2017-02-01] MEDS: Folic Acid 1 MG TAB PO SCH (08:32)
--- NOTE | 2017-02-01 11:25 | PDOC.PN ---
- Subjective Encounter Start Date: 02/01/17 Encounter Start Time: 10:30 -: old records requested/rev Patient seen and examined. No new complaints. No overnight events, still has dyspnea - Objective MAR Reviewed: Yes Vital Signs & Weight: Vital Signs (12 hours) Temp Pulse Resp BP BP Pulse Ox 02/01/17 08:00 96.5 F L 89 16 117/77 100 02/01/17 07:19 95 02/01/17 07:18 105 H 20 95 02/01/17 04:46 97.2 F L 101 H 20 110/76 95 02/01/17 00:51 92 14 95 02/01/17 00:24 97.5 F L 94 18 96/68 94 L Weight Weight 149 lb 9 oz I&O: 01/31/17 02/01/17 02/02/17 06:59 06:59 06:59 Intake Total 1880 240 Balance 1880 240 Result Diagrams: 01/31/17 05:00 01/31/17 05:00 Phys Exam - Physical Examination Constitutional: NAD HEENT: PERRLA, moist MMs, sclera anicteric Neck: no JVD, supple Respiratory: no wheezing, no rales, no rhonchi Cardiovascular: RRR, no significant murmur, no rub Gastrointestinal: soft, non-tender, no distention, positive bowel sounds Musculoskeletal: no edema, pulses present Neurological: non-focal, normal sensation Lymphatic: no nodes Psychiatric: normal affect Skin: no rash, normal turgor Dx/Plan (1) C. difficile colitis Status: Acute (2) COPD exacerbation Code(s): J44.1 - CHRONIC OBSTRUCTIVE PULMONARY DISEASE W (ACUTE) EXACERBATION Status: Acute (3) Warfarin-induced coagulopathy Code(s): D68.9 - COAGULATION DEFECT, UNSPECIFIED; T45.515A - ADVERSE EFFECT OF ANTICOAGULANTS, INITIAL ENCOUNTER Status: Acute (4) left index finger osteomyelitis Status: Acute Comment: is on vanc (5) CKD (chronic kidney disease) stage 3, GFR 30-59 ml/min Code(s): N18.3 - CHRONIC KIDNEY DISEASE, STAGE 3 (MODERATE) Status: Chronic (6) Chronic a-fib Code(s): I48.2 - CHRONIC ATRIAL FIBRILLATION Status: Chronic Comment: rate controlled (7) Chronic anticoagulation Code(s): Z79.01 - GUEST RELATIONS REPRESENTATIVE (CURRENT) USE OF ANTICOAGULANTS Status: Chronic (8) Chronic diastolic heart failure Code(s): I50.32 - CHRONIC DIASTOLIC (CONGESTIVE) HEART FAILURE Status: Chronic (9) DJD (degenerative joint disease) Code(s): M19.90 - UNSPECIFIED OSTEOARTHRITIS, UNSPECIFIED SITE Status: Chronic (10) Hypothyroidism Code(s): E03.9 - HYPOTHYROIDISM, UNSPECIFIED Status: Chronic Qualifiers: Hypothyroidism type: acquired Qualified Code(s): E03.9 - Hypothyroidism, unspecified (11) Macrocytosis Code(s): D75.89 - OTHER SPECIFIED DISEASES OF BLOOD AND BLOOD-FORMING ORGANS Status: Chronic (12) Pulmonary hypertension Code(s): I27.20 - PULMONARY HYPERTENSION, UNSPECIFIED Status: Chronic (13) Severe mitral regurgitation by prior echocardiogram Code(s): I34.0 - NONRHEUMATIC MITRAL (VALVE) INSUFFICIENCY Status: Chronic (14) Severe tricuspid regurgitation by prior echocardiogram Code(s): I07.1 - RHEUMATIC TRICUSPID INSUFFICIENCY Status: Chronic - Plan cont current plan of care, continue antibiotics, respiratory therapy * continue oral vancomycin for now * start iv vancomycin for osteomyelitis * continue selected home meds * medication reviewed as below * symptomatic treatment * hand surgeon will evaluate today * he has picc line and he needs iv antibiotics till 02/17/17 * his copd is not under control. Review of Systems - Review of Systems Constitutional: negative: Fever, Chills, Sweats, Weakness, Malaise, Other Eyes: negative: Pain, Vision Change, Conjunctivae Inflammation, Eyelid Inflammation, Redness, Other ENT: negative: Ear Pain, Ear Discharge, Nose Pain, Nose Discharge, Nose Congestion, Mouth Pain, Mouth Swelling, Throat Pain, Throat Swelling, Other Respiratory: Cough, Shortness of Breath, SOB with Excertion. negative: Dry, Hemoptysis, Pleuritic Pain, Sputum, Wheezing Cardiovascular: negative: Chest Pain, Palpitations, Orthopnea, Paroxysmal Noc. Dyspnea, Edema, Light Headedness, Other Gastrointestinal: negative: Nausea, Vomiting, Abdominal Pain, Diarrhea, Constipation, Melena, Hematochezia, Other Genitourinary: negative: Dysuria, Frequency, Incontinence, Hematuria, Retention , Other Musculoskeletal: negative: Neck Pain, Shoulder Pain, Arm Pain, Back Pain, Hand Pain, Leg Pain, Foot Pain, Other Skin: negative: Rash, Lesions, Fl[place], Bruising, Other - Medications/Allergies Allergies/Adverse Reactions: Allergies Allergy/AdvReac Type Severity Reaction Status Date / Time Penicillins Allergy Verified 01/10/17 18:04 Medications: Current Medications Acetaminophen (Tylenol) 650 mg PO Q4H PRN PRN Reason: Headache/Fever or Pain Hydrocodone Bitart/Acetaminophen ([place] 7.5/325) 1 tab PO Q8H PRN PRN Reason: Moderate Pain (4-6) Albuterol/Ipratropium (Duoneb) 3 ml NEB [id number] [facility] Last Admin: 02/01/17 07:18 Dose: 3 ml Aspirin (Aspirin Chewable) 81 mg PO DAILY [facility] Last Admin: 02/01/17 08:26 Dose: 81 mg Cyanocobalamin (Vitamin B-12) 1,000 mcg PO DAILY [facility] Last Admin: 02/01/17 08:32 Dose: 1,000 mcg Famotidine (Pepcid) 20 mg PO DAILY [facility] Last Admin: 02/01/17 08:26 Dose: 20 mg Folic Acid (Folvite) 1 mg PO DAILY [facility] Last Admin: 02/01/17 08:32 Dose: 1 mg Furosemide (Lasix) 20 mg PO DAILY [facility] Last Admin: 02/01/17 08:26 Dose: 20 mg Guaifenesin/Dextromethorphan (Robitussin Dm) 15 ml PO Q4H PRN PRN Reason: Cough Vancomycin HCl 1.25 gm/ Sodium (Chloride) 250 mls @ 166.667 mls/hr IVPB 1800 [facility] Last Admin: 01/31/17 18:11 Dose: 250 mls Iron/Minerals/Multivitamins (Theragran M) 1 tab PO DAILY [facility] Last Admin: 02/01/17 08:31 Dose: 1 tab Levothyroxine Sodium (Synthroid) 25 mcg PO 0600 [facility] Last Admin: 02/01/17 04:27 Dose: 25 mcg Metoprolol Tartrate (Lopressor) 50 mg PO BID [facility] Last Admin: 02/01/17 08:26 Dose: 50 mg Miscellaneous Medication (Pharmacy To Dose) 1 each IVPB ASDIR [facility] Miscellaneous Medication (Pharmacy To Dose) 0 each PO DAILY [facility] Prednisone (Prednisone) 5 mg PO QAM[facility] Stop: 02/01/17 23:59 Last Admin: 02/01/17 08:26 Dose: 5 mg Saccharomyces Boulardii (Florastor) 250 mg PO DAILY [facility] Last Admin: 02/01/17 08:31 Dose: 250 mg Sodium Chloride (Flush - Normal Saline) 10 ml IVF Q12HR [facility] Last Admin: 02/01/17 09:28 Dose: Not Given Sodium Chloride (Flush - Normal Saline) 10 ml IVF PRN PRN PRN Reason: Saline Flush Vancomycin HCl (First Vancomycin) 125 mg PO QID [facility] Last Admin: 02/01/17 08:32 Dose: 125 mg
[2017-02-01] MEDS: Guaifenesin DM 100-10/5 ML UDCUP PO PRN ×2 (16:56→20:29)
[2017-02-01 18:12] LABS: Vancomycin, Trough 14.3 ug/mL
[2017-02-01] MEDS: Vancomycin HCl 1.25 GM in Sodium Chloride 0.9% 250 ML 250 ML IVPB SCH (18:33)
[2017-02-02] MEDS: Levothyroxine Sodium 25 MCG TAB PO SCH (04:05)
[2017-02-02 04:31] LABS: #Eosinphils 0.1 thou/uL (0.0-0.7); #Lymphocytes 1.7 thou/uL (1.20-3.40); #Neutrophils 7.6 thou/uL (1.40-6.50); %Basophils 0.3 % (0.0-1.0); %Eosinophils 1.3 % (0.0-10.0); %Lymphocytes 15.9 % (21.0-51.0); %Monocytes 9.3 % (0.0-10.0); Hematocrit 42.8 % (42.0-52.0); Mean Platelet Volume 8.9 fL (7.4-10.4); Red Blood Cell (RBC) Count 4.19 mill/uL (4.70-6.10); White Blood Cell (WBC) Count 10.4 thou/uL (4.8-10.8)
[2017-02-02 04:38] LABS: Prothrombin Time 35.8 SEC (12.0-14.7)
[2017-02-02 04:50] LABS: Anion Gap 14 mmol/L (10-20); BUN (Urea Nitrogen) 38 mg/dL (8.4-25.7); Calc. Creatinine Clearance 48 mL/min (70-130); Calcium 9.1 mg/dL (7.8-10.44); Carbon Dioxide 25 mmol/L (23-31); Chloride 100 mmol/L (98-107); Estimated GFR-MDRD 57
[2017-02-02] MEDS: Folic Acid 1 MG TAB PO SCH (09:09)
[2017-02-02] MEDS: Famotidine 20 MG TAB PO SCH (09:09)
[2017-02-02] MEDS: Metoprolol Tartrate 50 MG TAB PO SCH ×2 (09:09→21:30)
[2017-02-02] MEDS: Cyanocobalamin (Vitamin B-12) 1,000 MCG TAB PO SCH (09:09)
[2017-02-02] MEDS: Saccharomyces boulardii 250 MG CAP PO SCH (09:09)
[2017-02-02] MEDS: Furosemide 20 MG TAB PO SCH (09:09)
[2017-02-02] MEDS: Multivitamin W/ Minerals 1 TAB PO SCH (09:09)
[2017-02-02] MEDS: Vancomycin HCl 25 MG/ML Oral PO SCH ×4 (09:14→21:31)
--- NOTE | 2017-02-02 10:17 | RAD ---
PORTABLE CHEST: History: Shortness of breath. Comparison: PA chest, 01-25-17. FINDINGS: There is new infiltrate in the left midlung. Elevated left hemidiaphragm is again noted. Right lung r emains clear. Heart size upper normal and stable. PICC line via the left upper extremity appears in a dequate position with tip overlying the superior vena cava. IMPRESSION: New infiltrate in the left midlung when compared to prior study. Elevated left hemidiaphragm is uncha nged in appearance. POS: FELICIANO
--- NOTE | 2017-02-02 12:42 | PDOC.PN ---
- Subjective Encounter Start Date: 02/02/17 Encounter Start Time: 07:45 Subjective: c/o increasing cough and sob -: diarrhea has resolved now - Objective MAR Reviewed: Yes Vital Signs & Weight: Vital Signs (12 hours) Temp Pulse Resp BP Pulse Ox 02/02/17 08:01 104 H 16 94 L 02/02/17 08:00 96.5 F L 97 16 134/87 97 Weight Weight 145 lb I&O: 02/01/17 02/02/17 02/03/17 06:59 06:59 06:59 Intake Total 1880 1720 480 Balance 1880 1720 480 Result Diagrams: 02/02/17 02:59 02/02/17 02:59 Phys Exam - Physical Examination HEENT: PERRLA, moist MMs Neck: no JVD, supple Respiratory: no wheezing, no rales rhonchi+ Cardiovascular: no significant murmur, irregular Gastrointestinal: soft, non-tender, positive bowel sounds Musculoskeletal: no edema, pulses present Neurological: non-focal, moves all 4 limbs Psychiatric: A&O x 3 Dx/Plan (1) C. difficile colitis Status: Acute (2) CHF (congestive heart failure) Code(s): I50.9 - HEART FAILURE, UNSPECIFIED Status: Chronic Qualifiers: Congestive heart failure type: diastolic Comment: well compensated now (3) left index finger osteomyelitis Status: Acute Comment: is on vanc (4) COPD (chronic obstructive pulmonary disease) Status: Acute Qualifiers: COPD type: COPD with acute exacerbation Qualified Code(s): J44.1 - Chronic obstructive pulmonary disease with (acute) exacerbation Comment: resolving (5) Chronic a-fib Code(s): I48.2 - CHRONIC ATRIAL FIBRILLATION Status: Chronic Comment: rate controlled (6) Hypothyroidism Code(s): E03.9 - HYPOTHYROIDISM, UNSPECIFIED Status: Chronic Qualifiers: Hypothyroidism type: acquired Qualified Code(s): E03.9 - Hypothyroidism, unspecified (7) PNA (pneumonia) Code(s): J18.9 - PNEUMONIA, UNSPECIFIED ORGANISM Status: Acute Qualifiers: Pneumonia type: due to unspecified organism Laterality: left - Plan start levaquin oral for pna left lung -: increase lasix to 40mg daily (is passing small amounts of urine) -: reconsult for his finger, may need amputation/imaging -: is on iv vanc for osteo and oral vanc for cdiff which is resolving -: nebs, amb as tolerated * . Review of Systems - Medications/Allergies Allergies/Adverse Reactions: Allergies Allergy/AdvReac Type Severity Reaction Status Date / Time Penicillins Allergy Verified 01/10/17 18:04 Medications: Current Medications Acetaminophen (Tylenol) 650 mg PO Q4H PRN PRN Reason: Headache/Fever or Pain Hydrocodone Bitart/Acetaminophen ([place] 7.5/325) 1 tab PO Q8H PRN PRN Reason: Moderate Pain (4-6) Albuterol/Ipratropium (Duoneb) 3 ml NEB [id number] [facility] Last Admin: 02/02/17 08:01 Dose: 3 ml Aspirin (Aspirin Chewable) 81 mg PO DAILY [facility] Last Admin: 02/02/17 09:09 Dose: 81 mg Cyanocobalamin (Vitamin B-12) 1,000 mcg PO DAILY [facility] Last Admin: 02/02/17 09:09 Dose: 1,000 mcg Famotidine (Pepcid) 20 mg PO DAILY [facility] Last Admin: 02/02/17 09:09 Dose: 20 mg Folic Acid (Folvite) 1 mg PO DAILY [facility] Last Admin: 02/02/17 09:09 Dose: 1 mg Furosemide (Lasix) 40 mg PO DAILY-AC [facility] Guaifenesin/Dextromethorphan (Robitussin Dm) 15 ml PO Q4H PRN PRN Reason: Cough Last Admin: 02/01/17 20:29 Dose: 15 ml Vancomycin HCl 1.25 gm/ Sodium (Chloride) 250 mls @ 166.667 mls/hr IVPB 1800 [facility] Last Admin: 02/01/17 18:33 Dose: 250 mls Iron/Minerals/Multivitamins (Theragran M) 1 tab PO DAILY [facility] Last Admin: 02/02/17 09:09 Dose: 1 tab Levofloxacin (Levaquin) 500 mg PO 2000 [facility] Levothyroxine Sodium (Synthroid) 25 mcg PO 0600 [facility] Last Admin: 02/02/17 04:05 Dose: 25 mcg Metoprolol Tartrate (Lopressor) 50 mg PO BID [facility] Last Admin: 02/02/17 09:09 Dose: 50 mg Miscellaneous Medication (Pharmacy To Dose) 1 each IVPB ASDIR [facility] Miscellaneous Medication (Pharmacy To Dose) 0 each PO DAILY [facility] Last Admin: 02/02/17 09:21 Dose: Not Given Saccharomyces Boulardii (Florastor) 250 mg PO DAILY [facility] Last Admin: 02/02/17 09:09 Dose: 250 mg Sodium Chloride (Flush - Normal Saline) 10 ml IVF Q12HR [facility] Last Admin: 02/02/17 09:09 Dose: 10 ml Sodium Chloride (Flush - Normal Saline) 10 ml IVF PRN PRN PRN Reason: Saline Flush Vancomycin HCl (First Vancomycin) 125 mg PO QID [facility] Last Admin: 02/02/17 09:14 Dose: 125 mg Warfarin Sodium (Coumadin) 2.5 mg PO 1700 [facility]
[2017-02-02] MEDS: Warfarin Sodium 2.5 MG TAB PO SCH (16:41)
[2017-02-02] MEDS: Guaifenesin DM 100-10/5 ML UDCUP PO PRN ×2 (16:41→21:35)
[2017-02-02] MEDS: Vancomycin HCl 1.25 GM in Sodium Chloride 0.9% 250 ML 250 ML IVPB SCH (17:34)
[2017-02-02] MEDS: Temazepam 15 MG CAP PO PRN (21:30)
--- NOTE | 2017-02-03 05:54 | CON ---
DATE OF CONSULTATION: 02/02/2017 SUBJECTIVE: Called to evaluate the patient. Mr. Kenrick Sharma who is well known to me as he had trem endous osteomyelitis with open wound and I performed a resection arthroplasty of the phalangeal joint maintaining the lesser digit while he resection of the joint was treated for the osteomyelitis. At this point, he was treated with a wound closure after 10 days of open wound care and that occurred ap proximately 2 weeks ago. He has not followed in the clinic as he has been in a series of hospitaliza tions between [facility]. He reported to the hospital today because has "diarrhe a which I can't control". PHYSICAL EXAMINATION: His wound is intact. I cannot express any exudate. There is faint erythema, but not any of minimal degree. Soft tissue swelling is much decreased from what it was preoperativel y and today he can bring the tip of his index finger to his thumb. There is mild instability at this maneuver, but the digit tip is pink and he has excellent light touch and today he is satisfied with his result. ASSESSMENT AND RECOMMENDATIONS: Osteomyelitis distal phalangeal treated with resection arthroplasty and then closure of the wound and delayed closure 10 days after this procedure. No gross evidence of infection that would warrant invasive treatment today. Radiographically the finger will always look like it has a problem, there will be some lytic areas, but this is one method to treat this type of problem and if it fails, it of being decontaminated before performing any more definitive proce dure. I will follow the patient if he is in the hospital in 1 week. If not, he will follow up with me in office. I placed him in a dressing that should be good enough for 5 days.
[2017-02-03] MEDS: Levothyroxine Sodium 25 MCG TAB PO SCH (06:20)
[2017-02-03] MEDS: Guaifenesin DM 100-10/5 ML UDCUP PO PRN ×2 (06:24→21:20)
[2017-02-03] MEDS: Acetaminophen 325 MG TAB PO PRN ×2 (06:25→21:19)
[2017-02-03 07:46] LABS: Prothrombin Time 32.8 SEC (12.0-14.7)
[2017-02-03 08:02] LABS: Anion Gap 15 mmol/L (10-20); BUN (Urea Nitrogen) 38 mg/dL (8.4-25.7); Calc. Creatinine Clearance 47 mL/min (70-130); Calcium 9.4 mg/dL (7.8-10.44); Carbon Dioxide 30 mmol/L (23-31); Chloride 98 mmol/L (98-107); Estimated GFR-MDRD 57
[2017-02-03 08:06] LABS: Band 9 % (5-11); Hematocrit 45.6 % (42.0-52.0); Mean Platelet Volume 8.8 fL (7.4-10.4); Neutrophil 73 % (42-75); Reactive Lymphocytes 4 % (0-10); Red Blood Cell (RBC) Count 4.42 mill/uL (4.70-6.10)
[2017-02-03] MEDS: Famotidine 20 MG TAB PO SCH (08:59)
[2017-02-03] MEDS: Cyanocobalamin (Vitamin B-12) 1,000 MCG TAB PO SCH (08:59)
[2017-02-03] MEDS: Metoprolol Tartrate 50 MG TAB PO SCH ×2 (08:59→21:19)
[2017-02-03] MEDS: Furosemide 40 MG TAB PO SCH (09:00)
[2017-02-03] MEDS: Saccharomyces boulardii 250 MG CAP PO SCH (09:00)
[2017-02-03] MEDS: Vancomycin HCl 25 MG/ML Oral PO SCH ×4 (09:00→21:20)
[2017-02-03] MEDS: Multivitamin W/ Minerals 1 TAB PO SCH (09:00)
[2017-02-03] MEDS: Folic Acid 1 MG TAB PO SCH (09:00)
--- NOTE | 2017-02-03 12:54 | PDOC.PN ---
- Subjective Encounter Start Date: 02/03/17 Encounter Start Time: 08:50 Subjective: feels weak, has dry cough -: stool is slowly thickening with no kayleen diarrhea now - Objective MAR Reviewed: Yes Vital Signs & Weight: Vital Signs (12 hours) Temp Pulse Resp BP Pulse Ox 02/03/17 11:52 101 H 16 94 L 02/03/17 08:00 97.6 F 107 H 16 93 L 02/03/17 07:25 97.6 F 107 H 16 129/87 93 L 02/03/17 06:42 98 16 93 L 02/03/17 04:00 97.7 F 100 18 118/78 90 L 02/03/17 01:16 94 L Weight Weight 145 lb 8.081 oz I&O: 02/02/17 02/03/17 02/04/17 06:59 06:59 06:59 Intake Total 1720 1800 Balance 1720 1800 Result Diagrams: 02/03/17 07:30 02/03/17 07:30 Phys Exam - Physical Examination HEENT: PERRLA, moist MMs Neck: no JVD, supple Respiratory: no wheezing, no rales rhonchi+ Cardiovascular: RRR, no significant murmur Gastrointestinal: soft, non-tender, no distention, positive bowel sounds Musculoskeletal: no edema, pulses present Neurological: non-focal, moves all 4 limbs Psychiatric: A&O x 3 Dx/Plan (1) C. difficile colitis Status: Acute (2) CHF (congestive heart failure) Code(s): I50.9 - HEART FAILURE, UNSPECIFIED Status: Chronic Qualifiers: Congestive heart failure type: diastolic Comment: well compensated now (3) left index finger osteomyelitis Status: Acute Comment: is on vanc (4) COPD (chronic obstructive pulmonary disease) Status: Acute Qualifiers: COPD type: COPD with acute exacerbation Qualified Code(s): J44.1 - Chronic obstructive pulmonary disease with (acute) exacerbation Comment: resolving (5) Chronic a-fib Code(s): I48.2 - CHRONIC ATRIAL FIBRILLATION Status: Chronic Comment: rate controlled (6) Hypothyroidism Code(s): E03.9 - HYPOTHYROIDISM, UNSPECIFIED Status: Chronic Qualifiers: Hypothyroidism type: acquired Qualified Code(s): E03.9 - Hypothyroidism, unspecified (7) PNA (pneumonia) Code(s): J18.9 - PNEUMONIA, UNSPECIFIED ORGANISM Status: Acute Qualifiers: Pneumonia type: due to unspecified organism Laterality: left - Plan is on iv and po vanc for osteo and cdif -: levaquin for pna, watch for inr, its 3.0 today -: swing bed eval, end date on iv vanc is 02/17/2017 for osteo -: nebs, oral lasix -: amb as tolerated. has evaluated his finger, will see him in2wks * . Review of Systems - Medications/Allergies Allergies/Adverse Reactions: Allergies Allergy/AdvReac Type Severity Reaction Status Date / Time Penicillins Allergy Verified 01/10/17 18:04 Medications: Current Medications Acetaminophen (Tylenol) 650 mg PO Q4H PRN PRN Reason: Headache/Fever or Pain Last Admin: 02/03/17 06:25 Dose: 650 mg Hydrocodone Bitart/Acetaminophen ([place] 7.5/325) 1 tab PO Q8H PRN PRN Reason: Moderate Pain (4-6) Albuterol/Ipratropium (Duoneb) 3 ml NEB [id number] [facility] Last Admin: 02/03/17 11:52 Dose: 3 ml Aspirin (Aspirin Chewable) 81 mg PO DAILY [facility] Last Admin: 02/03/17 08:59 Dose: 81 mg Cyanocobalamin (Vitamin B-12) 1,000 mcg PO DAILY [facility] Last Admin: 02/03/17 08:59 Dose: 1,000 mcg Famotidine (Pepcid) 20 mg PO DAILY [facility] Last Admin: 02/03/17 08:59 Dose: 20 mg Folic Acid (Folvite) 1 mg PO DAILY [facility] Last Admin: 02/03/17 09:00 Dose: 1 mg Furosemide (Lasix) 40 mg PO DAILY-AC [facility] Last Admin: 02/03/17 09:00 Dose: 40 mg Guaifenesin/Dextromethorphan (Robitussin Dm) 15 ml PO Q4H PRN PRN Reason: Cough Last Admin: 02/03/17 06:24 Dose: 15 ml Vancomycin HCl 1.25 gm/ Sodium (Chloride) 250 mls @ 166.667 mls/hr IVPB 1800 [facility] Last Admin: 02/02/17 17:34 Dose: 250 mls Iron/Minerals/Multivitamins (Theragran M) 1 tab PO DAILY [facility] Last Admin: 02/03/17 09:00 Dose: 1 tab Levofloxacin (Levaquin) 500 mg PO 1999 [facility] Last Admin: 02/02/17 21:30 Dose: 500 mg Levothyroxine Sodium (Synthroid) 25 mcg PO 0600 [facility] Last Admin: 02/03/17 06:20 Dose: 25 mcg Metoprolol Tartrate (Lopressor) 50 mg PO BID [facility] Last Admin: 02/03/17 08:59 Dose: 50 mg Miscellaneous Medication (Pharmacy To Dose) 1 each IVPB ASDIR [facility] Miscellaneous Medication (Pharmacy To Dose) 0 each PO DAILY [facility] Last Admin: 02/03/17 09:10 Dose: Not Given Saccharomyces Boulardii (Florastor) 250 mg PO DAILY [facility] Last Admin: 02/03/17 09:00 Dose: 250 mg Sodium Chloride (Flush - Normal Saline) 10 ml IVF Q12HR [facility] Last Admin: 02/03/17 09:01 Dose: 10 ml Sodium Chloride (Flush - Normal Saline) 10 ml IVF PRN PRN PRN Reason: Saline Flush Temazepam (Restoril) 15 mg PO HSPRN PRN PRN Reason: Insomnia Last Admin: 02/02/17 21:30 Dose: 15 mg Vancomycin HCl (First Vancomycin) 125 mg PO QID [facility] Last Admin: 02/03/17 09:00 Dose: 125 mg Warfarin Sodium (Coumadin) 2.5 mg PO 1700 [facility] Last Admin: 02/02/17 16:41 Dose: 2.5 mg
[2017-02-03] MEDS: Warfarin Sodium 2.5 MG TAB PO SCH (17:04)
[2017-02-03] MEDS: Vancomycin HCl 1.25 GM in Sodium Chloride 0.9% 250 ML 250 ML IVPB SCH (18:21)
[2017-02-03] MEDS: Temazepam 15 MG CAP PO PRN (21:19)
[2017-02-04 04:57] LABS: Prothrombin Time 35.1 SEC (12.0-14.7)
[2017-02-04] MEDS: Levothyroxine Sodium 25 MCG TAB PO SCH (06:25)
[2017-02-04] MEDS: Folic Acid 1 MG TAB PO SCH (08:46)
[2017-02-04] MEDS: Furosemide 40 MG TAB PO SCH (08:46)
[2017-02-04] MEDS: Multivitamin W/ Minerals 1 TAB PO SCH (08:46)
[2017-02-04] MEDS: Famotidine 20 MG TAB PO SCH (08:46)
[2017-02-04] MEDS: Cyanocobalamin (Vitamin B-12) 1,000 MCG TAB PO SCH (08:46)
[2017-02-04] MEDS: Metoprolol Tartrate 50 MG TAB PO SCH ×2 (08:46→20:07)
[2017-02-04] MEDS: Vancomycin HCl 25 MG/ML Oral PO SCH ×4 (08:47→20:08)
[2017-02-04] MEDS: Saccharomyces boulardii 250 MG CAP PO SCH (08:47)
--- NOTE | 2017-02-04 14:51 | PDOC.PN ---
- Subjective Encounter Start Date: 02/04/17 Encounter Start Time: 07:30 Subjective: feels better, still has 2 mostly formed semisolid stools -: no nausea - Objective MAR Reviewed: Yes Vital Signs & Weight: Vital Signs (12 hours) Temp Pulse Resp BP Pulse Ox 02/04/17 13:59 89 18 94 L 02/04/17 12:16 97.6 F 94 20 104/69 92 L 02/04/17 08:00 97.7 F 108 H 20 94 L 02/04/17 07:30 97.7 F 108 H 20 122/85 94 L 02/04/17 06:39 95 16 93 L Weight Weight 145 lb 8.081 oz I&O: 02/03/17 02/04/17 02/05/17 06:59 06:59 06:59 Intake Total 1800 725 Balance 1800 725 Result Diagrams: 02/03/17 07:30 02/03/17 07:30 Phys Exam - Physical Examination HEENT: PERRLA, moist MMs Neck: no JVD, supple Respiratory: no wheezing, no rales Cardiovascular: RRR, no significant murmur Gastrointestinal: soft, non-tender, positive bowel sounds Musculoskeletal: no edema, pulses present Neurological: non-focal, moves all 4 limbs Psychiatric: A&O x 3 Dx/Plan (1) C. difficile colitis Status: Acute (2) CHF (congestive heart failure) Code(s): I50.9 - HEART FAILURE, UNSPECIFIED Status: Chronic Qualifiers: Congestive heart failure type: diastolic Comment: well compensated now (3) left index finger osteomyelitis Status: Acute Comment: is on vanc (4) COPD (chronic obstructive pulmonary disease) Status: Acute Qualifiers: COPD type: COPD with acute exacerbation Qualified Code(s): J44.1 - Chronic obstructive pulmonary disease with (acute) exacerbation Comment: resolving (5) Chronic a-fib Code(s): I48.2 - CHRONIC ATRIAL FIBRILLATION Status: Chronic Comment: rate controlled (6) Hypothyroidism Code(s): E03.9 - HYPOTHYROIDISM, UNSPECIFIED Status: Chronic Qualifiers: Hypothyroidism type: acquired Qualified Code(s): E03.9 - Hypothyroidism, unspecified (7) PNA (pneumonia) Code(s): J18.9 - PNEUMONIA, UNSPECIFIED ORGANISM Status: Acute Qualifiers: Pneumonia type: due to unspecified organism Laterality: left - Plan to continue oral vanc as adv -: will iv vanc till 14th for osteo -: oral levaq for another 3days for pna -: may dc anytime if placement is ready -: inr in 3 days * .
[2017-02-04] MEDS ORDERED: Warfarin Sodium 2 MG TAB PO SCH (17:00)
[2017-02-04] MEDS: Vancomycin HCl 1.25 GM in Sodium Chloride 0.9% 250 ML 250 ML IVPB SCH (17:46)
[2017-02-04] MEDS: Guaifenesin DM 100-10/5 ML UDCUP PO PRN (20:07)
[2017-02-04] MEDS: Temazepam 15 MG CAP PO PRN (20:07)
--- NOTE | 2017-02-04 22:20 | DIS ---
DATE OF ADMISSION: 01/30/2017 DATE OF DISCHARGE: 02/04/2017 DISCHARGE DISPOSITION: To swing bed. PRIMARY DISCHARGE DIAGNOSES: Left lung pneumonia, resolving; Clostridium difficile colitis and left index finger osteomyelitis. SECONDARY DISCHARGE DIAGNOSES: Mild chronic obstructive pulmonary disease exacerbation, which is res olving; congestive heart failure with diastolic dysfunction, stable; chronic atrial fibrillation, whi ch is rate controlled and hypothyroidism. PROCEDURES DONE DURING HOSPITALIZATION: Chest x-ray done on the showed new infiltrate in the le ft mid lung field. Hemoglobin and hematocrit 14 and 45 with platelet count of 161 on the day of disc harge. Discharge INR is 3.3. BNP of 605. Stool for Clostridium difficile was positive for toxigeni c Clostridium difficile by PCR. Blood cultures x2 no growth. DISCHARGE MEDICATIONS: Vancomycin 1.25 grams IV daily till the of this month for left index fin arsalan osteomyelitis; vancomycin 125 mg p.o. 4 times daily, tapering dose for a total of 21 days as pres cribed; Levaquin 500 mg p.o. daily for another 4 days for his left lung pneumonia; aspirin 81 mg p.o. daily; Coumadin 3 mg p.o. b.i.d.; Pepcid 20 mg daily; vitamin B12 1000 mcg p.o. daily; Lasix 20 mg d aily; folic acid 1 mg p.o. daily; [place] p.r.n. for pain; DuoNebs q.6 hourly; levothyroxine 25 mcg p.o . daily; Lopressor 50 mg p.o. twice daily; multivitamin 1 tab once daily; Protonix 40 mg p.o. daily a nd Florastor 250 mg p.o. daily. ALLERGIES: PENICILLIN. INPATIENT CONSULTS: Dr. Cannon for Hand Surgery and Dr. Monae for Infectious Disease. BRIEF COURSE DURING HOSPITALIZATION: The patient initially was transferred from [facility] for compl aints of diarrhea and shortness of breath. He was having nearly 10 episodes of diarrhea, which was s limy and watery. He was essentially admitted for diarrhea to rule out Clostridium difficile with him being on antibiotic for his left index finger osteomyelitis. Also, he had mild to moderate COPD exa cerbation for which he was placed on steroids and DuoNebs. The steroids were rapidly tapered. Two d ays into hospitalization, patient still complained of shortness of breath and a chest x-ray was obtai radha. This revealed new infiltrate in the left lung. He was placed on Levaquin. Stool for C. diff c acacia back positive. He was placed on oral vancomycin for the same. He has had consultation with Dr. Monae for Infectious Disease. The patient needs to continue vancomycin oral for a total period of 21 days in a tapering fashion as he continues to be on antibiotics. He has also had consultation with Dr. Cannon for hand surgery who had earlier evaluated him for his left index finger osteomyelitis. The patient had missed outpatient appointments due to him being hospitalized here on two occasions. He needs to follow up with Dr. Cannon in 2 weeks. A total of 35 minutes was spent on discharge plan. Please see a [id number] documentation on [facility] for the day of discharge.
[2017-02-05 04:52] LABS: Prothrombin Time 34.5 SEC (12.0-14.7)
[2017-02-05] MEDS: Levothyroxine Sodium 25 MCG TAB PO SCH (05:54)
[2017-02-05] MEDS: Multivitamin W/ Minerals 1 TAB PO SCH (08:12)
[2017-02-05] MEDS: Metoprolol Tartrate 50 MG TAB PO SCH ×2 (08:13→20:20)
[2017-02-05] MEDS: Saccharomyces boulardii 250 MG CAP PO SCH (08:13)
[2017-02-05] MEDS: Famotidine 20 MG TAB PO SCH (08:13)
[2017-02-05] MEDS: Furosemide 40 MG TAB PO SCH (08:14)
[2017-02-05] MEDS: Folic Acid 1 MG TAB PO SCH (08:14)
[2017-02-05] MEDS: Cyanocobalamin (Vitamin B-12) 1,000 MCG TAB PO SCH (08:14)
[2017-02-05] MEDS: Vancomycin HCl 25 MG/ML Oral PO SCH ×5 (10:12→20:19)
--- NOTE | 2017-02-05 13:11 | PDOC.PN ---
- Subjective Encounter Start Date: 02/05/17 Encounter Start Time: 09:35 Subjective: had 3 episodes of almost formed stool from yesterday -: no sob now - Objective MAR Reviewed: Yes Vital Signs & Weight: Vital Signs (12 hours) Temp Pulse Resp BP Pulse Ox 02/05/17 08:00 97.5 F L 97 18 02/05/17 07:33 97.5 F L 97 18 120/82 87 L Weight Weight 146 lb I&O: 02/04/17 02/05/17 02/06/17 06:59 06:59 06:59 Intake Total 725 1840 240 Balance 725 1840 240 Result Diagrams: 02/03/17 07:30 02/03/17 07:30 Phys Exam - Physical Examination HEENT: PERRLA, sclera anicteric Neck: no JVD, supple Respiratory: no wheezing, no rales Cardiovascular: RRR, no significant murmur Gastrointestinal: soft, no distention, positive bowel sounds Musculoskeletal: no edema, pulses present Neurological: non-focal, moves all 4 limbs Psychiatric: A&O x 3 Dx/Plan (1) C. difficile colitis Status: Acute (2) CHF (congestive heart failure) Code(s): I50.9 - HEART FAILURE, UNSPECIFIED Status: Chronic Qualifiers: Congestive heart failure type: diastolic Comment: well compensated now (3) left index finger osteomyelitis Status: Acute Comment: is on vanc (4) COPD (chronic obstructive pulmonary disease) Status: Acute Qualifiers: COPD type: COPD with acute exacerbation Qualified Code(s): J44.1 - Chronic obstructive pulmonary disease with (acute) exacerbation Comment: resolving (5) Chronic a-fib Code(s): I48.2 - CHRONIC ATRIAL FIBRILLATION Status: Chronic Comment: rate controlled (6) Hypothyroidism Code(s): E03.9 - HYPOTHYROIDISM, UNSPECIFIED Status: Chronic Qualifiers: Hypothyroidism type: acquired Qualified Code(s): E03.9 - Hypothyroidism, unspecified (7) PNA (pneumonia) Code(s): J18.9 - PNEUMONIA, UNSPECIFIED ORGANISM Status: Acute Qualifiers: Pneumonia type: due to unspecified organism Laterality: left - Plan is on oral and iv vanc -: levaquin for pna -: awaiting placement -: cdif is slowly resolving with almost formed stools now -: to amb as tolerated * . Review of Systems - Medications/Allergies Allergies/Adverse Reactions: Allergies Allergy/AdvReac Type Severity Reaction Status Date / Time Penicillins Allergy Verified 01/10/17 18:04 Medications: Current Medications Acetaminophen (Tylenol) 650 mg PO Q4H PRN PRN Reason: Headache/Fever or Pain Last Admin: 02/03/17 21:19 Dose: 650 mg Hydrocodone Bitart/Acetaminophen ([place] 7.5/325) 1 tab PO Q8H PRN PRN Reason: Moderate Pain (4-6) Albuterol/Ipratropium (Duoneb) 3 ml NEB Q6H PRN PRN Reason: SOB &/or Wheezing Aspirin (Aspirin Chewable) 81 mg PO DAILY [facility] Last Admin: 02/05/17 08:14 Dose: 81 mg Cyanocobalamin (Vitamin B-12) 1,000 mcg PO DAILY [facility] Last Admin: 02/05/17 08:14 Dose: 1,000 mcg Famotidine (Pepcid) 20 mg PO DAILY [facility] Last Admin: 02/05/17 08:13 Dose: 20 mg Folic Acid (Folvite) 1 mg PO DAILY [facility] Last Admin: 02/05/17 08:14 Dose: 1 mg Furosemide (Lasix) 40 mg PO DAILY-AC [facility] Last Admin: 02/05/17 08:14 Dose: 40 mg Guaifenesin/Dextromethorphan (Robitussin Dm) 15 ml PO Q4H PRN PRN Reason: Cough Last Admin: 02/04/17 20:07 Dose: 15 ml Vancomycin HCl 1.25 gm/ Sodium (Chloride) 250 mls @ 166.667 mls/hr IVPB 1800 [facility] Last Admin: 02/04/17 17:46 Dose: 250 mls Iron/Minerals/Multivitamins (Theragran M) 1 tab PO DAILY [facility] Last Admin: 02/05/17 08:12 Dose: 1 tab Levofloxacin (Levaquin) 500 mg PO 1999 [facility] Last Admin: 02/04/17 20:07 Dose: 500 mg Levothyroxine Sodium (Synthroid) 25 mcg PO 0600 [facility] Last Admin: 02/05/17 05:54 Dose: 25 mcg Metoprolol Tartrate (Lopressor) 50 mg PO BID [facility] Last Admin: 02/05/17 08:13 Dose: 50 mg Miscellaneous Medication (Pharmacy To Dose) 1 each IVPB ASDIR [facility] Miscellaneous Medication (Pharmacy To Dose) 0 each PO DAILY [facility] Last Admin: 02/05/17 08:16 Dose: Not Given Saccharomyces Boulardii (Florastor) 250 mg PO DAILY [facility] Last Admin: 02/05/17 08:13 Dose: 250 mg Sodium Chloride (Flush - Normal Saline) 10 ml IVF Q12HR [facility] Last Admin: 02/05/17 08:16 Dose: 10 ml Sodium Chloride (Flush - Normal Saline) 10 ml IVF PRN PRN PRN Reason: Saline Flush Temazepam (Restoril) 15 mg PO HSPRN PRN PRN Reason: Insomnia Last Admin: 02/04/17 20:07 Dose: 15 mg Vancomycin HCl (First Vancomycin) 125 mg PO QID [facility] Last Admin: 02/05/17 12:57 Dose: 125 mg Warfarin Sodium (Coumadin) 2 mg PO 1700 [facility]
[2017-02-05 14:09] LABS: Hematocrit 47.7 % (42.0-52.0); Mean Platelet Volume 7.7 fL (7.4-10.4); Red Blood Cell (RBC) Count 4.62 mill/uL (4.70-6.10); White Blood Cell (WBC) Count 15.9 thou/uL (4.8-10.8)
[2017-02-05 14:31] LABS: ALT (SGPT) 137 U/L (8-55); AST (SGOT) 117 U/L (5-34); Alkaline Phosphatase 114 U/L (40-150); Anion Gap 15 mmol/L (10-20); BUN (Urea Nitrogen) 39 mg/dL (8.4-25.7); Bilirubin, Total 2.2 mg/dL (0.2-1.2); Calc. Creatinine Clearance 39 mL/min (70-130); Calcium 9.4 mg/dL (7.8-10.44); Carbon Dioxide 27 mmol/L (23-31); Chloride 96 mmol/L (98-107); Estimated GFR-MDRD 46; Globulin 2.5 g/dL (2.4-3.5); Protein, Total 5.8 g/dL (5.8-8.1)
[2017-02-05 14:51] LABS: Band 2 % (5-11); Macrocytosis SLIGHT = 6-15 cells (100X) (0-5/hpf); Neutrophil 77 % (42-75); Nucleated RBC 4 % (0); Ovalocytes SLIGHT = 2-5 cells (100X) (0-1/hpf); Polychromasia MODERATE = 3-4 cells (100X) (0-2/hpf); Reactive Lymphocytes 5 % (0-10)
[2017-02-05] MEDS: Vancomycin HCl 1.25 GM in Sodium Chloride 0.9% 250 ML 250 ML IVPB SCH (18:37)
[2017-02-05] MEDS: Acetaminophen 325 MG TAB PO PRN (20:19)
[2017-02-05] MEDS: Guaifenesin DM 100-10/5 ML UDCUP PO PRN (20:20)
[2017-02-05] MEDS: Temazepam 15 MG CAP PO PRN (20:20)
[2017-02-06 05:56] LABS: Prothrombin Time 38.6 SEC (12.0-14.7)
[2017-02-06] MEDS: Levothyroxine Sodium 25 MCG TAB PO SCH (06:13)
[2017-02-06] MEDS: Furosemide 40 MG TAB PO SCH (08:16)
[2017-02-06] MEDS ORDERED: Sodium Chloride 0.9% 1,000 ML IV SCH (08:30)
[2017-02-06] MEDS: Folic Acid 1 MG TAB PO SCH (09:27)
[2017-02-06] MEDS: Multivitamin W/ Minerals 1 TAB PO SCH (09:27)
[2017-02-06] MEDS: Famotidine 20 MG TAB PO SCH (09:27)
[2017-02-06] MEDS: Saccharomyces boulardii 250 MG CAP PO SCH (09:27)
[2017-02-06] MEDS: Cyanocobalamin (Vitamin B-12) 1,000 MCG TAB PO SCH (09:27)
[2017-02-06] MEDS: Vancomycin HCl 25 MG/ML Oral PO SCH ×4 (09:28→20:51)
[2017-02-06] MEDS: Metoprolol Tartrate 50 MG TAB PO SCH ×2 (09:28→20:46)
--- NOTE | 2017-02-06 13:44 | PDOC.PN ---
- Subjective Encounter Start Date: 02/06/17 Encounter Start Time: 11:15 Subjective: c/o feeling weak, still has semisolid stools, freq is less now - Objective Vital Signs & Weight: Vital Signs (12 hours) Temp Pulse Resp BP Pulse Ox 02/06/17 08:00 97.4 F L 95 16 102/75 90 L 02/06/17 07:16 95 16 Weight Weight 146 lb 8 oz I&O: 02/05/17 02/06/17 02/07/17 06:59 06:59 06:59 Intake Total 1839 Balance 1839 Result Diagrams: 02/05/17 13:59 02/05/17 13:59 Phys Exam - Physical Examination HEENT: PERRLA, sclera anicteric Neck: no JVD, supple Respiratory: no wheezing rhonchi+ Cardiovascular: RRR, no significant murmur Gastrointestinal: soft, non-tender, no distention, positive bowel sounds Musculoskeletal: no edema, pulses present Neurological: non-focal, moves all 4 limbs Psychiatric: A&O x 3 Dx/Plan (1) C. difficile colitis Status: Acute (2) CHF (congestive heart failure) Code(s): I50.9 - HEART FAILURE, UNSPECIFIED Status: Chronic Qualifiers: Congestive heart failure type: diastolic (3) left index finger osteomyelitis Status: Acute Comment: is on vanc (4) COPD (chronic obstructive pulmonary disease) Status: Acute Qualifiers: COPD type: COPD with acute exacerbation Qualified Code(s): J44.1 - Chronic obstructive pulmonary disease with (acute) exacerbation Comment: resolving (5) Chronic a-fib Code(s): I48.2 - CHRONIC ATRIAL FIBRILLATION Status: Chronic Comment: rate controlled (6) Hypothyroidism Code(s): E03.9 - HYPOTHYROIDISM, UNSPECIFIED Status: Chronic Qualifiers: Hypothyroidism type: acquired Qualified Code(s): E03.9 - Hypothyroidism, unspecified (7) PNA (pneumonia) Code(s): J18.9 - PNEUMONIA, UNSPECIFIED ORGANISM Status: Resolved Qualifiers: Pneumonia type: due to unspecified organism Laterality: left - Plan gentle iv fluids, watch for overload, has some basal rales -: on iv and po vanc -: awaiting placement -: has deconditioning -: duonebs qid, encourage po intake * . Review of Systems - Medications/Allergies Allergies/Adverse Reactions: Allergies Allergy/AdvReac Type Severity Reaction Status Date / Time Penicillins Allergy Verified 01/10/17 18:04 Medications: Current Medications Acetaminophen (Tylenol) 650 mg PO Q4H PRN PRN Reason: Headache/Fever or Pain Last Admin: 02/05/17 20:19 Dose: 650 mg Hydrocodone Bitart/Acetaminophen ([place] 7.5/325) 1 tab PO Q8H PRN PRN Reason: Moderate Pain (4-6) Albuterol/Ipratropium (Duoneb) 3 ml NEB QID-RT [facility] Last Admin: 02/06/17 10:33 Dose: 3 ml Aspirin (Aspirin Chewable) 81 mg PO DAILY [facility] Last Admin: 02/06/17 09:27 Dose: 81 mg Cyanocobalamin (Vitamin B-12) 1,000 mcg PO DAILY [facility] Last Admin: 02/06/17 09:27 Dose: 1,000 mcg Famotidine (Pepcid) 20 mg PO DAILY [facility] Last Admin: 02/06/17 09:27 Dose: 20 mg Folic Acid (Folvite) 1 mg PO DAILY [facility] Last Admin: 02/06/17 09:27 Dose: 1 mg Guaifenesin/Dextromethorphan (Robitussin Dm) 15 ml PO Q4H PRN PRN Reason: Cough Last Admin: 02/05/17 20:20 Dose: 15 ml Vancomycin HCl 1.25 gm/ Sodium (Chloride) 250 mls @ 166.667 mls/hr IVPB 1800 [facility] Last Admin: 02/05/17 18:37 Dose: 250 mls Sodium Chloride (Normal Saline 0.9%) 1,000 mls @ 50 mls/hr IV .Q20H [facility] Stop: 02/07/17 04:29 Last Admin: 02/06/17 09:26 Dose: 1,000 mls Iron/Minerals/Multivitamins (Theragran M) 1 tab PO DAILY [facility] Last Admin: 02/06/17 09:27 Dose: 1 tab Levothyroxine Sodium (Synthroid) 25 mcg PO 0600 [facility] Last Admin: 02/06/17 06:13 Dose: 25 mcg Metoprolol Tartrate (Lopressor) 50 mg PO BID [facility] Last Admin: 02/06/17 09:28 Dose: Not Given Miscellaneous Medication (Pharmacy To Dose) 1 each IVPB ASDIR [facility] Miscellaneous Medication (Pharmacy To Dose) 0 each PO DAILY [facility] Last Admin: 02/06/17 09:28 Dose: Not Given Saccharomyces Boulardii (Florastor) 250 mg PO DAILY [facility] Last Admin: 02/06/17 09:27 Dose: 250 mg Sodium Chloride (Flush - Normal Saline) 10 ml IVF Q12HR [facility] Last Admin: 02/06/17 09:28 Dose: 10 ml Sodium Chloride (Flush - Normal Saline) 10 ml IVF PRN PRN PRN Reason: Saline Flush Temazepam (Restoril) 15 mg PO HSPRN PRN PRN Reason: Insomnia Last Admin: 02/05/17 20:20 Dose: 15 mg Vancomycin HCl (First Vancomycin) 125 mg PO QID [facility] Last Admin: 02/06/17 12:25 Dose: 125 mg Warfarin Sodium (Coumadin) 2 mg PO 1700 [facility]
[2017-02-06] MEDS ORDERED: Vancomycin HCl 1 GM in Premix Bag 1 BAG IVPB SCH (18:00)
[2017-02-06] MEDS: Guaifenesin DM 100-10/5 ML UDCUP PO PRN (20:51)
[2017-02-06] MEDS: Acetaminophen 325 MG TAB PO PRN (20:51)
[2017-02-07] MEDS: Levothyroxine Sodium 25 MCG TAB PO SCH (05:12)
[2017-02-07 05:38] LABS: Prothrombin Time 38.3 SEC (12.0-14.7)
[2017-02-07 05:50] LABS: Anion Gap 16 mmol/L (10-20); BUN (Urea Nitrogen) 54 mg/dL (8.4-25.7); Calc. Creatinine Clearance 34 mL/min (70-130); Carbon Dioxide 27 mmol/L (23-31); Chloride 96 mmol/L (98-107); Estimated GFR-MDRD 39
[2017-02-07 06:14] LABS: Band 10 % (5-11); Hematocrit 48.1 % (42.0-52.0); Mean Platelet Volume 8.1 fL (7.4-10.4); Neutrophil 74 % (42-75); Nucleated RBC 4 % (0); Reactive Lymphocytes 7 % (0-10); Red Blood Cell (RBC) Count 4.61 mill/uL (4.70-6.10); White Blood Cell (WBC) Count 15.4 thou/uL (4.8-10.8)
[2017-02-07 07:59] VITALS: TEMP 97.6
[2017-02-07] MEDS: Multivitamin W/ Minerals 1 TAB PO SCH (08:24)
[2017-02-07] MEDS: Folic Acid 1 MG TAB PO SCH (08:24)
[2017-02-07] MEDS: Cyanocobalamin (Vitamin B-12) 1,000 MCG TAB PO SCH (08:24)
[2017-02-07] MEDS: Famotidine 20 MG TAB PO SCH (08:24)
[2017-02-07] MEDS: Vancomycin HCl 25 MG/ML Oral PO SCH ×2 (08:25→12:07)
[2017-02-07] MEDS: Saccharomyces boulardii 250 MG CAP PO SCH (08:25)
[2017-02-07] MEDS: Metoprolol Tartrate 50 MG TAB PO SCH (08:25)
[2017-02-07 11:08] VITALS: BP 100/65
--- NOTE | 2017-02-07 12:23 | PDOC.PN ---
- Subjective Encounter Start Date: 02/07/17 Encounter Start Time: 07:30 Subjective: has 2 semisolid to watery bm this am, no nausea or sob - Objective MAR Reviewed: Yes Vital Signs & Weight: Vital Signs (12 hours) Temp Pulse Resp BP Pulse Ox 02/07/17 11:06 97.6 F 115 H 22 H 100/65 92 L 02/07/17 10:23 85 16 93 L 02/07/17 08:00 97.6 F 85 16 02/07/17 07:58 97.6 F 108 H 22 H 108/79 91 L 02/07/17 06:21 95 16 92 L Weight Weight 148 lb 11.2 oz I&O: 02/06/17 02/07/17 02/08/17 06:59 06:59 06:59 Intake Total 1959 2287 240 Balance 19597 240 Result Diagrams: 02/07/17 04:41 02/07/17 04:41 Additional Labs: Accuchecks 02/07/17 11:05 POC Glucose 120 H Phys Exam - Physical Examination HEENT: PERRLA, sclera anicteric Neck: no JVD, supple Respiratory: no wheezing, no rales rhonchi+ Cardiovascular: RRR, no significant murmur Gastrointestinal: soft, non-tender, positive bowel sounds Musculoskeletal: no edema, pulses present Neurological: non-focal, moves all 4 limbs Psychiatric: A&O x 3 Dx/Plan (1) C. difficile colitis Status: Acute (2) CHF (congestive heart failure) Code(s): I50.9 - HEART FAILURE, UNSPECIFIED Status: Chronic Qualifiers: Congestive heart failure type: diastolic (3) left index finger osteomyelitis Status: Acute Comment: is on vanc (4) COPD (chronic obstructive pulmonary disease) Status: Acute Qualifiers: COPD type: COPD with acute exacerbation Qualified Code(s): J44.1 - Chronic obstructive pulmonary disease with (acute) exacerbation Comment: resolving (5) Chronic a-fib Code(s): I48.2 - CHRONIC ATRIAL FIBRILLATION Status: Chronic Comment: rate controlled (6) Hypothyroidism Code(s): E03.9 - HYPOTHYROIDISM, UNSPECIFIED Status: Chronic Qualifiers: Hypothyroidism type: acquired Qualified Code(s): E03.9 - Hypothyroidism, unspecified (7) PNA (pneumonia) Code(s): J18.9 - PNEUMONIA, UNSPECIFIED ORGANISM Status: Resolved Qualifiers: Pneumonia type: due to unspecified organism Laterality: left - Plan wbc is 15 likely margination -: d/w , will accept him at [facility] in [place] -: to f/u with ([facility] [facility]) in 2 weeks -: may dc to snf * . Review of Systems - Medications/Allergies Allergies/Adverse Reactions: Allergies Allergy/AdvReac Type Severity Reaction Status Date / Time Penicillins Allergy Verified 01/10/17 18:04 Medications: Current Medications Acetaminophen (Tylenol) 650 mg PO Q4H PRN PRN Reason: Headache/Fever or Pain Last Admin: 02/06/17 20:51 Dose: 650 mg Hydrocodone Bitart/Acetaminophen ([place] 7.5/325) 1 tab PO Q8H PRN PRN Reason: Moderate Pain (4-6) Albuterol/Ipratropium (Duoneb) 3 ml NEB QID-RT [facility] Last Admin: 02/07/17 10:23 Dose: 3 ml Aspirin (Aspirin Chewable) 81 mg PO DAILY [facility] Last Admin: 02/07/17 08:24 Dose: 81 mg Cyanocobalamin (Vitamin B-12) 1,000 mcg PO DAILY [facility] Last Admin: 02/07/17 08:24 Dose: 1,000 mcg Famotidine (Pepcid) 20 mg PO DAILY [facility] Last Admin: 02/07/17 08:24 Dose: 20 mg Folic Acid (Folvite) 1 mg PO DAILY [facility] Last Admin: 02/07/17 08:24 Dose: 1 mg Guaifenesin/Dextromethorphan (Robitussin Dm) 15 ml PO Q4H PRN PRN Reason: Cough Last Admin: 02/06/17 20:51 Dose: 15 ml Vancomycin HCl 1 gm/ Device 200 mls @ 200 mls/hr IVPB 1800 [facility] Last Admin: 02/06/17 18:05 Dose: 200 mls Iron/Minerals/Multivitamins (Theragran M) 1 tab PO DAILY [facility] Last Admin: 02/07/17 08:24 Dose: 1 tab Levothyroxine Sodium (Synthroid) 25 mcg PO 0600 [facility] Last Admin: 02/07/17 05:12 Dose: 25 mcg Metoprolol Tartrate (Lopressor) 50 mg PO BID [facility] Last Admin: 02/07/17 08:25 Dose: 50 mg Miscellaneous Medication (Pharmacy To Dose) 1 each IVPB ASDIR [facility] Miscellaneous Medication (Pharmacy To Dose) 0 each PO DAILY [facility] Last Admin: 02/07/17 08:25 Dose: Not Given Saccharomyces Boulardii (Florastor) 250 mg PO DAILY [facility] Last Admin: 02/07/17 08:25 Dose: 250 mg Sodium Chloride (Flush - Normal Saline) 10 ml IVF Q12HR [facility] Last Admin: 02/07/17 08:25 Dose: 10 ml Sodium Chloride (Flush - Normal Saline) 10 ml IVF PRN PRN PRN Reason: Saline Flush Temazepam (Restoril) 15 mg PO HSPRN PRN PRN Reason: Insomnia Last Admin: 02/05/17 20:20 Dose: 15 mg Vancomycin HCl (First Vancomycin) 125 mg PO QID [facility] Last Admin: 02/07/17 12:07 Dose: 125 mg Warfarin Sodium (Coumadin) 2 mg PO 1700 [facility]
--- NOTE | 2017-02-08 03:31 | DIS ---
DATE OF ADMISSION: 01/31/2017 DATE OF DISCHARGE: 02/07/2017 DISCHARGE DISPOSITION: To [place] [facility]. PRIMARY DISCHARGE DIAGNOSES: Clostridium difficile colitis, chronic obstructive pulmonary disease, history of congestive heart failure with diastolic dysfunction, left index finger osteomyelitis, chronic atrial fibrillation on Coumadin, which is rate controlled, hypothyroidism. BRIEF COURSE DURING HOSPITALIZATION: Please see a discharge summary that I have dictated on 02/04/2017. Patient stayed for another 3 more days due to placement issues. This morning, he has been accepted at [facility] for swing bed. He has deconditioning due to above-mentioned illnesses. I have given complete report to Dr. Sanchez. The patient needs followup with Dr. Cannon in 2 weeks. He also needs INR to be done either on Tuesday or of this week. He is otherwise hemodynamically stable and will [facility]. A total of 35 minutes was spent on discharge plan. Please see a face to face documentation on [facility] for the day of discharge [facility]
== END 2017-02-07 16:06 | DRG 371 ==
LOC: ERS 07:21 → 2SW 09:31 → OBSVTOIN 01-31 07:32 → T4-A 01-31 10:55
PROVIDERS: ADMIT Internal Medicine; ATTEND Internal Medicine
DX: A04.72 Enterocolitis due to Clostridium difficile, not specified as recurrent (principal); J18.9 Pneumonia, unspecified organism; I13.0 Hypertensive heart and chronic kidney disease with heart failure and stage 1 through stage 4 chronic kidney disease, or unspecified chronic kidney disease; I48.2 Chronic atrial fibrillation; I50.32 Chronic diastolic (congestive) heart failure; J44.1 Chronic obstructive pulmonary disease with (acute) exacerbation; M86.8X4 Other osteomyelitis, hand; N18.3 Chronic kidney disease, stage 3 (moderate); I08.1 Rheumatic disorders of both mitral and tricuspid valves; I25.5 Ischemic cardiomyopathy; M19.90 Unspecified osteoarthritis, unspecified site; E03.9 Hypothyroidism, unspecified; D75.89 Other specified diseases of blood and blood-forming organs; I27.20 Pulmonary hypertension, unspecified; Z87.891 Personal history of nicotine dependence; Z88.0 Allergy status to penicillin; Z79.01 Long term (current) use of anticoagulants; Z96.692 Finger-joint replacement of left hand; Z82.49 Family history of ischemic heart disease and other diseases of the circulatory system
CPT/HCPCS: 36415; 36416; 71010; 80048; 80053; 80202; 83880; 85025; 85610; 87015; 87040; 87045; 87046; 87070; 87205; 87324; 87449; 87493; 87899; 93798; 94640; 96365; A4216; J1650; J1956; J2920; J3370; J7050; J7620

== ENCOUNTER 2017-03-11 09:04 | Inpatient (IN) | payer MEDICARE ==
[~2017-03-11 09:04] MED LIST changes: +Gadobenate Dimeglumine 529 MG/1 ML (20ML VIAL) ONE; -Heparin 1,000 UNITS/ML VIAL ONE; +ISOVUE-370 76%-LOCM 1 ML ONE
[2017-03-11 10:14] LABS: Bilirubin Negative (Negative); Blood, Urine Negative (Negative); Clarity CLEAR (Clear); Glucose, Urine (Dipstick) Negative (Negative); Leukocyte Negative (Negative); Nitrite Negative (Negative); Protein, Urine (Dipstick) Negative (Neg-Trace); Specific Gravity, Urine 1.021 (1.002-1.036); Urobilinogen 0.2 mg/dL (0.2-1.0)
[2017-03-11 10:16] LABS: INR-International Normal Ratio 2.2; Prothrombin Time 25.3 SEC (12.0-14.7)
[2017-03-11 10:17] LABS: PTT 42.9 SEC (22.9-36.1)
[2017-03-11 10:17] LABS: Anisocytosis SLIGHT = 6-15 cells (100X) (0-5/hpf); Band 8 % (5-11); Hemoglobin 14.1 g/dL (14.0-18.0); Lymphocytes 7 % (21-51); MDiff Complete? YES; Mean Corpuscular HGB CONC 32.2 g/dL (32.0-36.0); Mean Corpuscular Hemoglobin 32.8 pg (27.0-31.0); Mean Platelet Volume 7.8 fL (7.4-10.4); Monocytes 2 % (0-10); Neutrophil 83 % (42-75); Platelet Count 203 thou/uL (130-400); RBC Distribution Width 14.6 % (11.5-14.5); Red Blood Cell (RBC) Count 4.31 mill/uL (4.70-6.10); White Blood Cell (WBC) Count 18.7 thou/uL (4.8-10.8)
[2017-03-11 10:19] LABS: Bacteria/HPF None Seen HPF (None Seen); Hyaline Casts/LPF 0-3 HYALINE CAST LPF (0-3 Hyaline); Pathc Cast-AUWi Flag 0.13 (0-2.49); RBC/HPF 0-3 HPF (0-3); WBC/HPF 0-3 HPF (0-3)
[2017-03-11] MEDS ORDERED: Midazolam HCl 2 mg/2 ml Vial ONE (10:19)
[2017-03-11] MEDS ORDERED: Bupivacaine PF 0.5% 30 ML VIAL ONE (10:22)
[2017-03-11] MEDS ORDERED: Thrombin 5000 UNITS/5 ML VIAL ONE (10:22)
[2017-03-11] MEDS ORDERED: Bacitracin Zinc Ointment 30 gm TUBE ONE (10:22)
[2017-03-11] MEDS ORDERED: Lidocaine 1% (PF) 30 ML VIAL ONE (10:22)
[2017-03-11 10:27] LABS: Anion Gap 15 mmol/L (10-20); BUN (Urea Nitrogen) 29 mg/dL (8.4-25.7); Calc. Creatinine Clearance 0 mL/min (70-130); Carbon Dioxide 29 mmol/L (23-31); Chloride 92 mmol/L (98-107); Estimated GFR-MDRD 54; Glucose 79 mg/dL (83-110); Potassium 3.5 mmol/L (3.5-5.1); Sodium 132 mmol/L (136-145)
--- NOTE | 2017-03-11 12:36 | RAD ---
CHEST TWO VIEWS: History: Pre-operative. Pneumonia screening. Comparison: 02-02-17 FINDINGS: Normal cardiac silhouette. The pulmonary vessels and hilum are normal. Blunting of the right costophr enic angle with small effusion or atelectasis. Left costophrenic angle is clear. Chronic changes thro ughout the lung parenchyma. No suspicious masses or consolidations. Stable elevation of the left liang diaphragm. No pneumothorax. Mild bone demineralization. IMPRESSION: Blunting of the right costophrenic angle due to small effusion or atelectasis. Additional chronic rodolfo nges. POS: [facility]
--- NOTE | 2017-03-11 12:39 | RAD ---
RIGHT HIP TWO VIEWS: Comparison: None. FINDINGS: Contour of the femoral head is maintained. No fracture. Mild loss of joint space height. IMPRESSION: Mild degenerative changes of the right hip. POS: [facility]
[2017-03-11 13:08] LABS: Troponin I 0.011 ng/mL (< 0.028)
[2017-03-11 13:29] LABS: ALT (SGPT) 24 U/L (8-55); AST (SGOT) 33 U/L (5-34); Albumin 3.1 g/dL (3.4-4.8); Alkaline Phosphatase 147 U/L (40-150); Bilirubin, Direct 1.1 mg/dL (0.1-0.3); Bilirubin, Total 1.9 mg/dL (0.2-1.2); CRP (Inflammatory) 13.51 mg/dL (= or < 0.5); Magnesium 1.7 mg/dL (1.6-2.6); Phosphorus 2.3 mg/dL (2.3-4.7); Protein, Total 6.2 g/dL (5.8-8.1)
--- NOTE | 2017-03-11 13:29 | ULT ---
EXAM: RENAL ULTRASOUND: HISTORY: Nephrosis. Pyelonephritis. COMPARISON: 12/06/16. TECHNIQUE: Sagittal and transverse imaging of the kidneys is performed. FINDINGS: Bilaterally, no hydronephrosis. Both kidneys have a normal cortical echotexture. The right kidney measures 9.9 x 4.5 x 4.8 cm. The left kidney measures 9.0 x 4.9 x 4.8 cm. The urinary bladder has a normal mucosal appearance. Bladder volume is 232.4 cm. A small amount of perihepatic fluid is identified. IMPRESSION: 1. No evidence of hydronephrosis. 2. Small amount of nonspecific perihepatic free fluid. POS: [facility]
[2017-03-11] MEDS ORDERED: Bisacodyl 5 MG TAB PO PRN (14:04)
[2017-03-11] MEDS ORDERED: Guaifenesin DM 100-10/5 ML UDCUP PO PRN (14:04)
[2017-03-11] MEDS ORDERED: guaiFENesin ER 600 MG TAB PO SCH (14:15)
[2017-03-11] MEDS ORDERED: Furosemide 40 MG/4 ML VIAL SLOW IVP SCH (14:15)
--- NOTE | 2017-03-11 15:16 | HP ---
DATE OF ADMISSION: 03/11/2017 PRIMARY CARE PHYSICIAN: Kaitlin Sanchez M.D. CHIEF COMPLAINT: Leukocytosis. HISTORY OF PRESENT ILLNESS: Mr. Kenrick Sharma is a 77-year-old male with history of chronic atrial fibrillation, left index finger osteomyelitis in 01/2017, status post surgery and IV antibiot ics, Clostridium difficile colitis in 02/2017 status post oral vancomycin; chronic diastolic congesti ve heart failure, hypertension, and COPD who presented to day stay for a possible surgery for infecte d left index finger. History is mainly obtained by the patient himself who was a rather poor histori an and extensive chart review has been done. Mr. Sharma was in [facility] and was noticed to have leukocytosis with WBC count over 18,000 and was sent to Dr. Robert Glaser for possible surgical exploration of his left index finge r. He has known history of left finger osteomyelitis requiring surgery in 01/2017 and prolonged IV a ntibiotic course after that. Because of leukocytosis, it was thought that his finger is infected aga in. He was seen by Dr. Cannon in day stay and was noticed not to have any sort of sign or symptom of infection on the left index finger. However, given the fact that the patient has been feeling poo rly and leukocytosis, he is now being admitted to medical floor for further evaluation and checkout f or other sources of leukocytosis, especially sepsis. The patient initially underwent surgical debridement of an open wound in his distal phalangeal joint of his left index finger, first week of January 2017 and was discharged on IV antibiotics to the [facility]. He was admitted on 01/18/2017 with complaints of chest pain and was diagnosed and treat ed for CHF and COPD exacerbation and discharged again on 01/24/2017 to home. He was again admitted t o our facility on 01/30/2017 for complains of diarrhea and COPD exacerbation. At this time, he was d ischarged on 02/07/2017 to [facility] after being treated for Clostridium difficile colitis. H e was discharged on oral vancomycin. From the [facility], he was discharged on 02/11/2017 to [facility] for continuation of IV and oral vancomycin. Reportedly, he has finished bot h of them. The patient reported that he has not actually felt any better. He complains of excessive swelling in his leg despite daily dose of Lasix. He also complains of cough that has been there and has now bec ome productive. He complains of malaise, generalized weakness, and poor appetite. He denies any fev er or chills. He denies any pain in his abdomen. He denies any chest pain or shortness of breath. He is actually working quite well with physical therapist. However, given the findings of leukocytos is, he was transferred to our day stay as above. He is now being admitted for further evaluation and rule out sepsis. PAST MEDICAL HISTORY: 1. Chronic diastolic congestive heart failure. 2. Clostridium difficile colitis, status post oral vancomycin for 21 days. 3. History of left index finger osteomyelitis status post IV vancomycin. 4. COPD. 5. Chronic atrial fibrillation on chronic anticoagulation. 6. Hypothyroidism. 7. Hypertension. PAST SURGICAL HISTORY: 1. Left index finger I and D. 2. Appendectomy. 3. Tonsillectomy. 4. Surgery in his ears and nose. SOCIAL HISTORY: He quit smoking many years ago. No history of drug abuse or alcohol abuse. He curr ently is in a [facility]. FAMILY HISTORY: Coronary artery disease among several family members. ALLERGIES: PENICILLIN. CURRENT MEDICATIONS: As per the [facility] are as follows; Zofran 4 mg as ne eded, Lasix 40 mg daily, zinc sulfate 220 mg p.o. b.i.d., lactobacillus as needed, Protonix 40 mg dami ly, multivitamin daily, melatonin 6 mg at bedtime p.r.n., folic acid 1 mg daily, DuoNebs q.6 hours as needed, aspirin 81 mg daily, B12 1000 mcg daily, Dulcolax as needed, Imodium as needed, guaifenesin as needed, milk of magnesia as needed, metoprolol tartrate 50 mg p.o. b.i.d. and Coumadin 4 mg p.o. d aily. REVIEW OF SYSTEMS: The following complete review of systems was negative, unless otherwise mentioned in the HPI or below: Constitutional: Weight loss or gain, ability to conduct usual activities. Skin: Rash, itching. Eyes: Double vision, pain. ENT/Mouth: Nose bleeding, neck stiffness, pain, tenderness. Cardiovascular: Palpitations, dyspnea on exertion, orthopnea. Respiratory: Shortness of breath, wheezing, cough, hemoptysis, fever or night sweats. Gastrointestinal: Poor appetite, abdominal pain, heartburn, nausea, vomiting, constipation, or diarr hea. Genitourinary: Urgency, frequency, dysuria, nocturia. Musculoskeletal: Pain, swelling. Neurologic/Psychiatric: Anxiety, depression. Allergy/Immunologic: Skin rash, bleeding tendency. It is negative except for those mentioned in the history and physical. LABORATORY DATA AND IMAGING DATA: On examination, CBC shows WBC 18.6 with 83% neutrophils, hemoglobi n is 14.1, platelet count of 203, INR is 2.2. Serum chemistries show sodium 132, chloride 92, bicarb abdoulaye 29, BUN 29, creatinine normal at 1.29, total bilirubin 1.9 with normal liver enzymes. C-reacti ve protein elevated at 13.51. BNP elevated at 800. Cardiac enzymes negative. Amylase and lipase ar e normal. Chest x-ray reviewed by myself does not have any significant evidence of infiltrate, edema or effusions. His hip x-ray on the right side shows osteopenia without any evidence of hematoma, in fection or fracture. Renal ultrasound is negative for any evidence of pyelonephritis or hydronephros is. PHYSICAL EXAMINATION: VITAL SIGNS: His most recent vital signs include blood pressure 107/72, pulse of 105, respirations 1 8, saturating 95% on room air, temperature 98.9. GENERAL: He appears cachectic and severely malnourished and pale, but in no acute distress. He is a wake, alert, oriented x3. He is trying to drink the contrast for the CT scan ordered earlier. Norman mckinnon is at bedside. HEENT: Mucous membranes are slightly dry. No oropharyngeal exudate or erythema. Head is normocepha lic, atraumatic with significant frontal wasting. Pupils are equal, reactive to light and accommodat ion. Extraocular movements intact. NECK: Supple without any lymphadenopathy, JVD or bruit. CHEST: Clear to auscultation without any wheezing, rales, rhonchi. Irregularly irregular rhythm wit hout any significant murmurs. ABDOMEN: Soft and nondistended. No hepatosplenomegaly. There is some slight suprapubic tenderness on deep palpation and mild right CVA tenderness. EXTREMITIES: Showing 3+ pitting edema extending from the feet almost up to his knees. SKIN: Free of any rashes, bruises. No erythema or warmth. PSYCHIATRIC: Normal affect. NEUROLOGIC: Examination is nonfocal. IMPRESSION AND PLAN: 1. Leukocytosis. The patient will be admitted to rule out sepsis. He does not have any signs or sy mptoms per se of infection. It is very much possible that he has contracted healthcare associated pn [place], but his chest x-ray suggests otherwise. We will continue to obtain further imaging studies as ordered by Dr. Cannon including CT scan of the abdomen and pelvis as well as MRI of his right up per and lower extremities. We will also consult Infectious Disease, Dr. Monae. Hold off on all anti biotics for now. The patient has recently been once again treated for Escherichia coli infection in the rehab by some sort of oral antibiotics. We will send urine culture and blood culture as well as influenza testing. He is currently hemodynamically stable and will be admitted to medical floor. 2. Recent Clostridium difficile colitis. We will recheck his stools for Clostridium difficile. Shamika arently it seems like he has finished 21 days of oral vancomycin. He reports that his stools are joaquin ng more formed, but he has some constipation. CT scan has been ordered to rule out complications suc h as ileus. 3. Chronic atrial fibrillation, reasonable rate control. We will restart his metoprolol and Coumadi n until any surgical procedures as ordered. He is therapeutic on his INR. Hemodynamically stable. 4. History of chronic diastolic congestive heart failure. He has severe mitral valve prolapse as we ll as tricuspid regurgitation on echo dated 01/18/2017 with preserved EF of 55%-60%. He is apparentl y somewhat fluid overloaded. We will give him 1 dose of IV Lasix and monitor strict I's and O's at t his time. Continue with IV or oral diuresis after that. 5. History of chronic obstructive pulmonary disease. We will continue nebulizers for now. He is co mpensated at this time. 6. Code status: FULL CODE. Discussed with the patient and daughter. 7. Deep venous thrombosis and gastrointestinal prophylaxis. 8. Add p.r.n. medication orders. DISPOSITION: Mr. Sharma is being admitted for further workup of leukocytosis and rule out sepsis. Further management will depend upon his clinical course. Estimated length of stay 2-3 midnights.
[2017-03-11] MEDS ORDERED: Sodium Chloride 0.9% 0 ML ONE (16:30)
[2017-03-11 16:36] VITALS: BMI 21.6
--- NOTE | 2017-03-11 16:57 | MRI ---
RIGHT HIP MRI WITHOUT IV CONTRAST 03/11/17 HISTORY: 77-year-old male with right hip pain with elevated white blood count. There is some extensive subcutaneous fat stranding and edematous changes bilaterally, nonspecific, po ssibly related to cellulitis or diffuse edema or anasarca. There is some minimal diffuse mild intramu scular edema or fat stranding within the right gluteus medius muscle as well as some focal fatty musc le replacement changes in the upper vastus lateralis muscle. There is also some mild nonspecific jessica a within the right external obturator muscle. there is no evidence for abnormal marrow signal to sugg est fracture, stress injury or avascular necrosis or evidence for osteomyelitis. There is no evidence of focal fluid collection or drainable abscess. There is some free intraperitoneal fluid within the pelvis. Arthrosis changes are noted of the right hip joint with blunted degenerated appearing labrum. No evidence for significant hip joint abnormal effusion. IMPRESSION: Extensive diffuse nonspecific subcutaneous edema with possibilities including that of edema, cellulit is, or findings of anasarca. There is some generalized nonspecific minimal edematous changes and some fat stranding within the right gluteus medius muscle and right external obturator muscle as well as some focal fatty replacement changes within the upper right vastus lateralis muscle, nonspecific. Thi s could represent some degree of some nonspecific myositis but no evidence for intramuscular abscess or necrosis. No evidence for drainable abscess. No evidence for osteomyelitis. Free fluid in the pelv is. POS: TPC
[2017-03-11] MEDS ORDERED: Warfarin Sodium 2 MG TAB PO SCH (17:00)
--- NOTE | 2017-03-11 17:04 | MRI ---
LEFT HAND AND FINGER MRI WITH AND WITHOUT IV CONTRAST 03/11/17 HISTORY: 77-year-old male with laceration of index finger with knife in December with fever and pain and concer n for osteomyelitis. There is some soft tissue diffuse swelling of the index finger. There are some bony destructive carrasco es at the level of the distal interphalangeal joint in both the proximal portion of the distal phalan x as well as additional portion of the middle phalanx, evidence for osteomyelitis and septic arthriti s. No evidence of demonstrated drainable abscess. There are generalized degenerative and osteoarthros is. Interosseous cystic changes are noted in the distal second metacarpal shaft and metacarpal head w ithout adjacent marrow edema. IMPRESSION: Osteomyelitis involving the middle and distal phalanges and associated septic arthritis with some bon y destructive changes without evidence for drainable abscess. POS: TPC
[2017-03-11] MEDS ORDERED: Sodium Chloride 0.9% 10 ML ONE (19:23)
[2017-03-11] MEDS: Warfarin Sodium 2 MG TAB PO SCH (19:55)
--- NOTE | 2017-03-11 20:11 | CT ---
CT ABDOMEN WITH AND WITHOUT IV CONTRAST CT PELVIS WITH AND WITHOUT IV CONTRAST 03/11/17 HISTORY: History of Clostridium difficile with left lower quadrant abdominal pain. FINDINGS: There are small bilateral pleural effusions greater on the right with associated passive atelectasis. The heart is enlarged. Vascular calcifications are seen in the coronary arteries as well as involving the abdominal aorta and iliac arteries. Calcification of mitral valve annulus are present. The liver, spleen, pancreas, bilateral adrenal glands, kidneys, and urinary bladder demonstrate a nor mal CT appearance. There is mild colonic wall thickening primarily involving the ascending colon with suggestion of less er degrees of thickening involving the region of the sigmoid colon. There is pericolonic inflammatory changes with fluid in the pericolic gutters bilaterally and in the pelvis. The findings are likely a ttributable to colitis. The questioned thickening of the sigmoid colon is probably related to diverti cular disease due to multiple colonic diverticula without definitive findings to suggest diverticulit is. There is no fluid collection seen to suggest an abscess. There is left convexed scoliosis lumbar spine with slight right lateral subluxation of L1 on L2 relat ed to degenerative changes. There is mild nonspecific subcutaneous edema. IMPRESSION: 1. Mild nonspecific thickening, primarily involving the ascending colon likely related to coliti s which may be infectious or inflammatory in etiology. Patient does provide history of Clostridium di fficile, although this does not have the classic appearance, and could potentially be etiology for co lonic wall thickening. Wall thickening is only seen involving the ascending colon. 2. Colonic diverticulosis. 3. Small amount of free fluid in the pelvis. 4. Small bilateral pleural effusions, greater on the right. 5. Cardiomegaly. POS: INGRID
--- NOTE | 2017-03-11 21:01 | CON ---
DATE OF CONSULTATION: 03/11/2017 REASON FOR CONSULTATION: Worsening neutrophilia, worsening leukocytosis. HISTORY OF PRESENT ILLNESS: A 77-year-old known to us from prior visit, history of atrial fibrillation, ischemic cardiomyopathy and left index finger laceration with inflammatory changes of osteomyelitis status surgical debridement with tenosynovectomy. In January, he presented with profuse diarrhea and the workup was positive for C. difficile. He was treated and released and he has been now readmitted with worsening neutrophilia and abdominal cramps with diarrhea. No headache, some cough, but no sputum production. No documented fever, no back pain. He had some dysuria after the urinary catheter was inserted to collect the urine. No skin disorder. The left index finger actually is doing well. PAST MEDICAL HISTORY: Atrial fibrillation, ischemic cardiomyopathy, left index finger osteomyelitis with debridement, C. difficile colitis, prior appendectomy , COPD, hypothyroidism, hypertension. PAST SURGICAL HISTORY: Also includes tonsillectomy, ear, nose surgeries. SOCIAL HISTORY: Former smoker, had been in [facility]. FAMILY HISTORY: Coronary artery disease. ALLERGIES: PENICILLIN. CURRENT MEDICATIONS: DuoNeb, aspirin, Dulcolax, Folvite, Mucinex, Robitussin, Theragran, melatonin, Lopressor, Protonix, Coumadin. PHYSICAL EXAMINATION: VITAL SIGNS: BP 107/72, pulse 105, respirations 18, O2 sat 95%, temperature 98.9. SKIN: Shows the left index finger with resolution of the inflammatory changes. The distal aspect has pretty good consistency and is not loose like it had been before. Peripheral IV access. No Ibanez catheter. HEENT: Ocular movements are conjugate. Oral cavity with no elem teeth in place left. NECK: Supple, no jugular venous distention. LUNGS: With symmetric clear breath sounds. HEART: S1, S2, regular rate. ABDOMEN: Mildly distended. Bowel sounds are increased. Mild diffuse tenderness. GENITAL: Normal. EXTREMITIES: Pulses are 1+ in dorsalis pedis. He is able to move extremities equally. NEUROLOGIC: Cognitive function appears to be intact. LABORATORY DATA: White cell count 18.7, hemoglobin 14, platelets 203 with 83% neutrophils. INR 2.2. Sodium 132, creatinine 1.29, bilirubin 1.9, AST 33, ALT 24. CRP 13, albumin 3.1. Abdomen and pelvis CT has been completed. He also had a renal ultrasound done showed no hydronephrosis, small amount of nonspecific perihepatic free fluid. Chest x-ray showed blunting of costophrenic angle, but no infiltrates. ASSESSMENT: Hypertension, ischemic cardiomyopathy and left index finger osteomyelitis status post debridement and protracted antimicrobial therapy with methicillin sensitive Staphylococcus aureus retrieved from the finger. Subsequently, the patient developed Clostridium difficile colitis, treated, now he comes in with diarrhea. DISCUSSION: The most likely scenario is recrudescence of C. difficile colitis. We will submit stool for C. difficile if not done yet. Start empiric vancomycin orally. I looked at the CT scan and I think that there might be some thickening of the colon wall indicative of colitis, but will wait for the final radiologist interpretation. If the C. diff is negative, then another possibility would include other enteropathogens as well as ischemic colitis. MAIRAD
[2017-03-11] MEDS: guaiFENesin ER 600 MG TAB PO SCH (21:32)
[2017-03-11] MEDS: Vancomycin HCl 25 MG/ML Oral PO SCH (21:32)
[2017-03-11] MEDS: Metoprolol Tartrate 50 MG TAB PO SCH (21:32)
[2017-03-11] MEDS: Zinc Sulfate 220 MG CAP PO SCH (21:32)
--- NOTE | 2017-03-11 21:36 | RAD ---
LEFT FINGER THREE VIEWS: HISTORY: Left index finger amputation. COMPARISON: None. FINDINGS: There is a traumatic open fracture laceration of the middle phalanx index finger head and neck with d orsal subluxation of the distal phalanx. There is also a fracture of the dorsal aspect of the distal phalanx. IMPRESSION: Traumatic open fracture laceration and partial displacement of the index finger, middle phalanx, head and neck, and proximal phalanx base, with dorsal subluxation. The patient is at high risk for infec tion. POS: INGRID
[2017-03-11] MEDS: Melatonin 3 MG TAB PO SCH (22:02)
[2017-03-12] MEDS: Sodium Chloride 0.9% 1,000 ML IV SCH ×2 (02:20→16:53)
--- NOTE | 2017-03-12 06:12 | CON ---
DATE OF CONSULTATION: 03/11/2017 CONSULTING PHYSICIAN: Dr. Cannon, Hand Surgery. HISTORY OF PRESENT ILLNESS: Kenrick Sharma is a 77-year-old male who has multiple medical comorbiditie s and a prolonged hospital course. Per patient, he has been hospitalized in the hospital from 7 after complications secondary to his finger injury. Reportedly, the patient had osteomyelitis in 03/2016 which was complicated by a course of C. diff colitis in 02/2017 for which he was treated with oral vancomycin. Eventually, the patient was transferred to [facility] where he was f ound to have leukocytosis. He was transferred to our facility to be seen by his hand surgeon, Dr. Reinaldo mahmood for concerns of repeat osteomyelitis; however, on physical exam, there were no signs of infect ion of the finger. Patient reported at that time that he had not been feeling well and the Medicine Team was contacted for admission. The patient admits to lower abdominal discomfort. He had a CT sca n which demonstrated colitis. The patient further reported multiple episodes of diarrhea in the past few days. A stool sample was sent and found to be positive for Clostridium difficile. Our team was consulted by Dr. Cannon for lower abdominal pain and leukocytosis. Upon my evaluation, the patien t reports intermittent lower abdominal discomfort as well as intermittent suprapubic swelling and dis comfort associated with his known hernia. ALLERGIES: PENICILLIN. CHRONIC MEDICAL ILLNESSES: Include atrial fibrillation, ischemic cardiomyopathy, left finger osteomy elitis status post debridement, recent C. diff colitis, COPD, hypothyroidism, hypertension. PAST SURGICAL HISTORY: Significant for tonsillectomy, appendectomy, ear surgery and nose surgery. SOCIAL HISTORY: Patient lived at home prior to 12/2016. He is a former smoker. FAMILY HISTORY: Noncontributory in this patient. HOME MEDICATIONS: Include Lasix 40 mg daily, zinc 220 mg p.o. b.i.d., lactobacillus, Protonix 40 mg daily, multivitamin, melatonin 6 mg p.o. at bedtime p.r.n., folic acid 1 mg p.o. daily, DuoNebs q.6 h ours p.r.n., aspirin 81 mg p.o. daily, B12 daily, Dulcolax p.r.n., Imodium p.r.n., guaifenesin p.r.n. , Zofran 4 mg p.r.n., Milk of Magnesia p.r.n., metoprolol 50 mg p.o. b.i.d., and Coumadin 4 mg p.o. d aily. PHYSICAL EXAMINATION: VITAL SIGNS: Most recent vital signs include temperature 97.9, pulse 105, respiration 18, O2 sat 98% on room air, and blood pressure 116/80. GENERAL: Elderly appearing male in no acute distress, resting in bed. HEAD: Normocephalic, atraumatic. EYES: Pupils are PERRLA. Extraocular movements are intact. PULMONARY: Normal work of breathing, symmetric rise. ABDOMEN: Soft and nondistended. There is a right-sided suprapubic swelling without tenderness to pa lpation. Otherwise, there are no signs of peritonitis. No guarding or rigidity. EXTREMITIES: Moves all extremities x4. NEUROLOGIC: GCS is 15. No focal deficit noted. LABORATORY DATA: WBC 18.7, hemoglobin 14.1, hematocrit 42.9, platelet count 203, 83% neutrophilia wi th 8% bandemia. INR is 2.2. Sodium 132, potassium 3.5, chloride 92, carbon dioxide 29, BUN 29, crea tinine 1.29, glucose 79, total bilirubin is 1.9, direct bilirubin is 1.1, AST and ALT within normal l imits. Troponin is 0.011. CRP is 13.51. BNP is 802.1. Nasal swab for flu was negative. Stool for C. diff antigen and toxin was positive. ASSESSMENT AND PLAN: Abdominal pain and leukocytosis in the setting of C. difficile colitis. The yehuda crocker has been started on oral antibiotics per Infectious Disease. Hospital Medicine is managing his medical comorbidities. There is no acute surgical indication at this time. We will follow with ser ial abdominal exams. IV hydration and bowel rest until abdominal pain resolves. Case has been discu ssed with Dr. Wu who was also seen and evaluated the patient.
[2017-03-12 06:18] LABS: INR-International Normal Ratio 2.3; Prothrombin Time 26.1 SEC (12.0-14.7)
[2017-03-12 06:38] LABS: Anion Gap 12 mmol/L (10-20); BUN (Urea Nitrogen) 25 mg/dL (8.4-25.7); Calc. Creatinine Clearance 42 mL/min (70-130); Calcium 8.6 mg/dL (7.8-10.44); Carbon Dioxide 29 mmol/L (23-31); Chloride 94 mmol/L (98-107); Estimated GFR-MDRD 54; Glucose 81 mg/dL (83-110); Potassium 3.3 mmol/L (3.5-5.1); Sodium 132 mmol/L (136-145)
[2017-03-12 06:40] LABS: #Eosinphils 0.1 thou/uL (0.0-0.7); #Lymphocytes 1.2 thou/uL (1.20-3.40); #Monocytes 1.4 thou/uL (0.11-0.59); %Basophils 0.1 % (0.0-1.0); %Eosinophils 0.3 % (0.0-10.0); %Monocytes 8.3 % (0.0-10.0); %Neutrophils 84.3 % (42.0-75.0); Hemoglobin 13.3 g/dL (14.0-18.0); Mean Corpuscular HGB CONC 31.9 g/dL (32.0-36.0); Mean Corpuscular Hemoglobin 32.5 pg (27.0-31.0); Mean Platelet Volume 7.8 fL (7.4-10.4); Platelet Count 198 thou/uL (130-400); RBC Distribution Width 14.9 % (11.5-14.5); Red Blood Cell (RBC) Count 4.11 mill/uL (4.70-6.10); White Blood Cell (WBC) Count 16.7 thou/uL (4.8-10.8)
[2017-03-12] MEDS: Metoprolol Tartrate 50 MG TAB PO SCH ×2 (08:22→22:13)
[2017-03-12] MEDS ORDERED: Potassium Chloride 40 MEQ in Sodium Chloride 0.9% 500 ML IVPB SCH (09:30)
[2017-03-12] MEDS: Vancomycin HCl 25 MG/ML Oral PO SCH ×4 (11:04→22:25)
[2017-03-12] MEDS: guaiFENesin ER 600 MG TAB PO SCH ×2 (14:02→22:12)
[2017-03-12] MEDS: Multivitamin W/ Minerals 1 TAB PO SCH (14:02)
[2017-03-12] MEDS: Zinc Sulfate 220 MG CAP PO SCH ×2 (14:03→22:12)
[2017-03-12] MEDS: Folic Acid 1 MG TAB PO SCH (14:03)
[2017-03-12] MEDS: Cyanocobalamin (Vitamin B-12) 1,000 MCG TAB PO SCH (14:03)
--- NOTE | 2017-03-12 14:34 | PDOC.PN ---
- Subjective Encounter Start Date: 03/12/17 Encounter Start Time: 14:33 Subjective: feels a little better. no diarrhea/AP - Objective Resuscitation Status: Resuscitation Status FULL:Full Resuscitation MAR Reviewed: Yes Vital Signs & Weight: Vital Signs (12 hours) Temp Pulse Resp BP Pulse Ox 03/12/17 12:36 96.2 F L 91 14 103/70 96 03/12/17 09:11 78 12 03/12/17 09:08 97.5 F L 88 16 94/69 99 03/12/17 04:00 97.8 F 94 16 99/68 91 L Weight Weight 142 lb Result Diagrams: 03/12/17 05:47 03/12/17 05:47 Additional Labs: Microbiology 03/11/17 17:20 Nasal swab Influenza Types A,B Direct EIA - Final 03/11/17 17:15 Stool C. difficile GDH Antigen & Toxins - Final 03/11/17 12:17 Venous blood - Left Arm Blood Culture - Preliminary Specimen has been received and culture in progress. No Growth to date. 03/11/17 12:10 Venous blood - Right Arm Blood Culture - Preliminary Specimen has been received and culture in progress. No Growth to date. Laboratory Tests 03/11/17 03/11/17 09:50 09:58 C-Reactive Protein 13.51 H B-Natriuretic Peptide 802.1 H Radiology Reviewed by me: Yes Phys Exam - Physical Examination Constitutional: NAD malnourished HEENT: PERRLA, moist MMs, sclera anicteric, oral pharynx no lesions Neck: no nodes, no JVD, supple, full ROM Respiratory: no wheezing, no rales, no rhonchi, clear to auscultation bilateral Cardiovascular: RRR, no significant murmur Gastrointestinal: soft, non-tender, no distention, positive bowel sounds Musculoskeletal: no edema, pulses present Index finger cold .no erythema Neurological: non-focal, normal sensation, moves all 4 limbs Psychiatric: normal affect, A&O x 3 Skin: no rash Dx/Plan (1) C. difficile colitis Status: Acute (2) Leucocytosis Code(s): D72.829 - ELEVATED WHITE BLOOD CELL COUNT, UNSPECIFIED Status: Acute (3) Fluid overload Code(s): E87.70 - FLUID OVERLOAD, UNSPECIFIED Status: Acute (4) COPD exacerbation Code(s): J44.1 - CHRONIC OBSTRUCTIVE PULMONARY DISEASE W (ACUTE) EXACERBATION Status: Acute (5) CKD (chronic kidney disease) stage 3, GFR 30-59 ml/min Code(s): N18.3 - CHRONIC KIDNEY DISEASE, STAGE 3 (MODERATE) Status: Chronic (6) Hypokalemia Code(s): E87.6 - HYPOKALEMIA Status: Acute (7) Chronic a-fib Code(s): I48.2 - CHRONIC ATRIAL FIBRILLATION Status: Chronic Comment: rate controlled (8) Chronic anticoagulation Code(s): Z79.01 - LONG-TERM (CURRENT) USE OF ANTICOAGULANTS Status: Chronic (9) Chronic diastolic heart failure Code(s): I50.32 - CHRONIC DIASTOLIC (CONGESTIVE) HEART FAILURE Status: Chronic (10) Malnutrition Code(s): E46 - UNSPECIFIED PROTEIN-CALORIE MALNUTRITION Status: Acute - Plan continue antibiotics, PT/OT, respiratory therapy, incentive spirometry, out of bed/ambulate, DVT proph w/SCDs C.Diif recrudescence-on PO Vancomycin. -: ? Left index finger OM on MRI-defer to ID & Hand Sx for antibiotics/Surgery -: hemodynamically stable.INR therapeutic on coumadin, -: avoid IVF w chr CHF.restart PO lasix. -: am labs.replace and recheck potassium * . Review of Systems - Review of Systems Constitutional: weakness, malaise. negative: fever, chills, sweats, other Respiratory: negative: Cough, Dry, Shortness of Breath, Hemoptysis, SOB with Excertion, Pleuritic Pain, Sputum, Wheezing Cardiovascular: negative: chest pain, palpitations, orthopnea, paroxysmal nocturnal dyspnea, edema, light headedness, other Gastrointestinal: negative: Nausea, Vomiting, Abdominal Pain, Diarrhea, Constipation, Melena, Hematochezia, Other Genitourinary: negative: Dysuria, Frequency, Incontinence, Hematuria, Retention , Other Musculoskeletal: negative: Neck Pain, Shoulder Pain, Arm Pain, Back Pain, Hand Pain, Leg Pain, Foot Pain, Other Neurological: negative: Weakness, Numbness, Incoordination, Change in Speech, Confusion, Seizures, Other - Medications/Allergies Allergies/Adverse Reactions: Allergies Allergy/AdvReac Type Severity Reaction Status Date / Time Penicillins Allergy Verified 02/07/17 18:34 Medications: Current Medications Albuterol/Ipratropium (Duoneb) 3 ml NEB [id number] [facility] Last Admin: 03/12/17 09:11 Dose: 3 ml Albuterol/Ipratropium (Duoneb) 3 ml NEB [id number] PRN PRN Reason: SOB &/or Wheezing Aspirin (Aspirin Chewable) 81 mg PO DAILY [facility] Last Admin: 03/12/17 14:02 Dose: 81 mg Bisacodyl (Dulcolax) 10 mg PO DAILYPRN PRN PRN Reason: Constipation Cyanocobalamin (Vitamin B-12) 1,000 mcg PO DAILY [facility] Last Admin: 03/12/17 14:03 Dose: 1,000 mcg Folic Acid (Folvite) 1 mg PO DAILY [facility] Last Admin: 03/12/17 14:03 Dose: 1 mg Guaifenesin (Mucinex) 1,200 mg PO Q12HR [facility] Last Admin: 03/12/17 14:02 Dose: 1,200 mg Guaifenesin/Dextromethorphan (Robitussin Dm) 15 ml PO Q4H PRN PRN Reason: Cough Sodium Chloride (Normal Saline 0.9%) 1,000 mls @ 75 mls/hr IV .[id number] [facility] Last Admin: 03/12/17 02:20 Dose: Not Given Iron/Minerals/Multivitamins (Theragran M) 1 tab PO DAILY [facility] Last Admin: 03/12/17 14:02 Dose: 1 tab Melatonin (Melatonin) 6 mg PO HS [facility] Last Admin: 03/11/17 22:02 Dose: 6 mg Metoprolol Tartrate (Lopressor) 50 mg PO BID [facility] Last Admin: 03/12/17 08:22 Dose: 50 mg Miscellaneous Medication (Pharmacy To Dose) 1 each PO PRN PRN PRN Reason: Pharmacy to dose Pantoprazole Sodium (Protonix) 40 mg PO 2100 [facility] Vancomycin HCl (First Vancomycin) 125 mg PO QID [facility] Last Admin: 03/12/17 14:02 Dose: 125 mg Warfarin Sodium (Coumadin) 4 mg PO 1700 [facility] Last Admin: 03/11/17 19:55 Dose: Not Given Zinc Sulfate (Zinc Sulfate) 220 mg PO BID [facility] Last Admin: 03/12/17 14:03 Dose: 220 mg
[2017-03-12] MEDS ORDERED: Furosemide 40 MG/4 ML VIAL SLOW IVP SCH (14:45)
[2017-03-12] MEDS: Warfarin Sodium 2 MG TAB PO SCH (17:00)
--- NOTE | 2017-03-12 17:36 | PRG ---
DATE OF SERVICE: 03/12/2017 The patient was seen in consultation for abdominal pain that appears to be most likely C. difficile c olitis. The patient is undergoing the appropriate antibiotic treatment. This morning, it was noted that his white blood cell count has trended down to 16.7. He has been afebrile. He is tolerating a diet and his pain is controlled. At this time, we would recommend continuing antibiotic therapy. Th ere are no acute indications for surgical intervention at this time. This patient was evaluated with Dr. Wu this morning during rounds.
--- NOTE | 2017-03-12 19:34 | CON ---
DATE OF CONSULTATION: 03/12/2017 HISTORY OF PRESENT ILLNESS: The patient is a 77-year-old male with osteomyelitis of his fi nger, who presented with diarrhea. He had been diagnosed with diarrhea last month and underwent juan josé tment with vancomycin. He subsequently stopped the vancomycin and had recurrence of the diarrhea. Nika dos santos reports his diarrhea is somewhat better today. He has some lower abdominal crampy pain. He has no fever, chills, no nausea or vomiting. PAST MEDICAL HISTORY: Includes C. difficile colitis, atrial fibrillation, osteomyelitis, cardiomyopa thy, appendectomy, COPD, hypothyroidism and hypertension. SOCIAL HISTORY: Does not smoke or drink. FAMILY HISTORY: Negative for GI or liver disease. ALLERGIES: PENICILLIN. HOME MEDICATIONS: Include warfarin 4 mg p.o. q. day, Protonix 40 mg p.o. q. day, Zofran 4 mg p.o. q. 6 hours p.r.n., multivitamin 1 p.o. q. day, metoprolol 50 mg p.o. b.i.d., DuoNeb breathing treatments q.6 hours, Lasix 40 mg p.o. q. day, folic acid 1 mg p.o. q. day, vitamin B12 1000 mcg p.o. q. day an d aspirin 81 mg p.o. q. day. REVIEW OF SYSTEMS: Constitutional: No fever or chills. No weight loss. Eyes: No blurred vision o r double vision. ENT: No sore throat or earaches. Cardiovascular: No chest pain or palpitation. Pulmonary: No shortness of breath, cough or wheezing. Gastrointestinal: See above. Genitourinary: No hematuria or dysuria. Musculoskeletal: No joint pain or muscle weakness. Skin: No rashes exc ept for that involving his left index finger. Neurologic: No numbness or seizure activity. PHYSICAL EXAMINATION: VITAL SIGNS: Temperature 96.2, pulse 91, respiratory rate 14 and blood pressure 103/70. HEENT: Unremarkable. NECK: Supple. CHEST: Clear. CARDIOVASCULAR: Regular rate and rhythm without murmurs or gallops. ABDOMEN: Soft and nontender, without organomegaly or masses. Bowel sounds are present and normoacti ve. RECTAL: Deferred. EXTREMITIES: Normal. NEUROLOGIC: Nonfocal. LABORATORY AND IMAGING DATA: Shows a white blood cell count of 16.7, hemoglobin 13.3, hematocrit of 41.8, MCV of 102 and platelet count 198. PT is 26.1 with an INR of 2.3. Chemistry shows a sodium of 132, potassium 3.3, chloride 94 and glucose 81. Urinalysis is negative. Serology is negative and s hows negative hepatitis serology. Abdominal pelvic CT from 03/11/2017 shows some mild thickening of the ascending colon, colonic diverticulosis, small amount of free fluid in the pelvis, cardiomegaly. ASSESSMENT: 1. Osteomyelitis. 2. Recurrent Clostridium difficile - patient needs surgery for his finger and Clostridium difficile should not preclude any surgical intervention. He actually be preferred if the surgery requires any antibiotics to go ahead and proceed with the surgery and receive any antibiotics prior to retreatment of Clostridium difficile being finished. 3. Cardiomyopathy. 4. Atrial fibrillation, on Coumadin. RECOMMENDATIONS: 1. Okay to proceed with this planned surgery. 2. Oral vancomycin. 3. Discontinue antibiotics as soon as possible.
[2017-03-12] MEDS: Melatonin 3 MG TAB PO SCH (22:13)
--- NOTE | 2017-03-12 23:44 | PRG ---
DATE OF SERVICE: 03/12/2017. SUBJECTIVE: This is a 77-year-old male who has a surgical consultation for leukocytosis and abdomina l pain in the setting of C. difficile colitis. Pain is improved. He is tolerating his diet. He voc alizes no further complaints or concerns this evening. OBJECTIVE: VITAL SIGNS: Reviewed and stable. GENERAL: Resting in bed in no acute distress. Breathing is nonlabored. ABDOMEN: Soft and nondistended with no signs of peritonitis, guarding, or rigidity. ASSESSMENT AND PLAN: As documented in the daily progress note. Continue care as ordered. Continue to monitor.
[2017-03-13] MEDS: Sodium Chloride 0.9% 1,000 ML IV SCH ×2 (04:30→15:17)
[2017-03-13 06:00] LABS: #Basophils 0.1 thou/uL (0.0-0.2); #Eosinphils 0.1 thou/uL (0.0-0.7); #Lymphocytes 1.4 thou/uL (1.20-3.40); #Monocytes 1.2 thou/uL (0.11-0.59); #Neutrophils 9.5 thou/uL (1.40-6.50); %Basophils 0.4 % (0.0-1.0); %Eosinophils 0.9 % (0.0-10.0); %Lymphocytes 11.5 % (21.0-51.0); %Neutrophils 77.2 % (42.0-75.0); Hemoglobin 13.6 g/dL (14.0-18.0); Mean Corpuscular HGB CONC 31.8 g/dL (32.0-36.0); Mean Corpuscular Hemoglobin 32.5 pg (27.0-31.0); Mean Platelet Volume 7.5 fL (7.4-10.4); Platelet Count 227 thou/uL (130-400); RBC Distribution Width 14.7 % (11.5-14.5); Red Blood Cell (RBC) Count 4.17 mill/uL (4.70-6.10); White Blood Cell (WBC) Count 12.4 thou/uL (4.8-10.8)
[2017-03-13 06:04] LABS: INR-International Normal Ratio 2.5
[2017-03-13 06:22] LABS: Anion Gap 11 mmol/L (10-20); BUN (Urea Nitrogen) 25 mg/dL (8.4-25.7); Calc. Creatinine Clearance 47 mL/min (70-130); Calcium 8.6 mg/dL (7.8-10.44); Carbon Dioxide 29 mmol/L (23-31); Chloride 95 mmol/L (98-107); Estimated GFR-MDRD 61; Glucose 83 mg/dL (83-110); Potassium 3.4 mmol/L (3.5-5.1); Sodium 132 mmol/L (136-145)
[2017-03-13] MEDS ORDERED: Potassium Chloride 40 MEQ in Sodium Chloride 0.9% 500 ML IVPB SCH (09:00)
[2017-03-13] MEDS: Zinc Sulfate 220 MG CAP PO SCH ×2 (10:05→23:40)
[2017-03-13] MEDS: Vancomycin HCl 25 MG/ML Oral PO SCH ×4 (10:05→22:50)
[2017-03-13] MEDS: Metoprolol Tartrate 50 MG TAB PO SCH ×2 (10:06→22:50)
[2017-03-13] MEDS: Furosemide 20 MG TAB PO SCH (10:06)
[2017-03-13] MEDS: guaiFENesin ER 600 MG TAB PO SCH ×2 (10:06→22:51)
[2017-03-13] MEDS: Folic Acid 1 MG TAB PO SCH (10:06)
[2017-03-13] MEDS: Cyanocobalamin (Vitamin B-12) 1,000 MCG TAB PO SCH (10:07)
[2017-03-13] MEDS: Multivitamin W/ Minerals 1 TAB PO SCH (10:07)
--- NOTE | 2017-03-13 11:20 | PRG ---
DATE OF SERVICE: 03/13/2017 SUBJECTIVE: The patient reports his stools starting to firm up. He is having no abdominal pain, no nausea, vomiting, and wants to eat food. According to patient, there had been no surgery performed o n his finger. OBJECTIVE: VITAL SIGNS: Temperature 97.3, pulse 105, respiratory rate 18, blood pressure 98/72. CHEST: Clear. CARDIOVASCULAR: Regular rate and rhythm. ABDOMEN: Benign. LABORATORY DATA: Shows a white blood cell count 12.4, hemoglobin 13.6, hematocrit 42.6. Coagulation is 28.0 with an INR of 2.5. Labs significant for sodium 132, potassium 3.4, chloride 95. ASSESSMENT: Clostridium difficile colitis - apparently the patient's surgery is going to be canceled and he will be treated with antibiotics as an outpatient. This may be difficult, because as soon as his treatment for C. difficile was stopped, he will have a recurrence as long as he is on antibiotic s. His vancomycin probably needs to be continued as long as he is on antibiotics and for some time a fter. I would also add Florastor to his regimen. RECOMMENDATIONS: 1. Continue vancomycin. 2. Florastor. 3. We will sign off.
--- NOTE | 2017-03-13 15:28 | PDOC.PN ---
- Subjective Encounter Start Date: 03/13/17 Encounter Start Time: 15:25 Subjective: feels better.no more diarrhea - Objective Resuscitation Status: Resuscitation Status FULL:Full Resuscitation Vital Signs & Weight: Vital Signs (12 hours) Temp Pulse Resp BP Pulse Ox 03/13/17 11:21 97.5 F L 103 H 16 110/71 94 L 03/13/17 08:00 97.3 F L 105 H 18 03/13/17 07:36 97.3 F L 105 H 18 98/72 95 03/13/17 04:00 98.2 F 101 H 17 98/60 95 Weight Weight 142 lb I&O: 03/12/17 03/13/17 03/14/17 06:59 06:59 06:59 Intake Total 2500 Balance 2500 Result Diagrams: 03/13/17 05:26 03/13/17 05:26 Additional Labs: Microbiology 03/11/17 17:20 Nasal swab Influenza Types A,B Direct EIA - Final 03/11/17 17:15 Stool C. difficile GDH Antigen & Toxins - Final 03/11/17 12:17 Venous blood - Left Arm Blood Culture - Preliminary Specimen has been received and culture in progress. No Growth to date. 03/11/17 12:17 Venous blood - Left Arm Blood Culture - Preliminary NO GROWTH AT 48 HOURS 03/11/17 12:10 Venous blood - Right Arm Blood Culture - Preliminary Specimen has been received and culture in progress. No Growth to date. 03/11/17 12:10 Venous blood - Right Arm Blood Culture - Preliminary NO GROWTH AT 48 HOURS Laboratory Tests 03/11/17 03/12/17 03/13/17 09:58 05:47 05:26 INR 2.2 2.3 2.5 Phys Exam - Physical Examination Constitutional: NAD HEENT: PERRLA, moist MMs, sclera anicteric, oral pharynx no lesions Neck: no nodes, no JVD, supple, full ROM Respiratory: no wheezing, no rales, no rhonchi, clear to auscultation bilateral Cardiovascular: RRR, no significant murmur Gastrointestinal: soft, non-tender, no distention, positive bowel sounds Musculoskeletal: no edema, pulses present Neurological: non-focal, normal sensation, moves all 4 limbs Psychiatric: normal affect, A&O x 3 Skin: no rash Dx/Plan (1) C. difficile colitis Status: Acute (2) Leucocytosis Code(s): D72.829 - ELEVATED WHITE BLOOD CELL COUNT, UNSPECIFIED Status: Acute (3) Fluid overload Code(s): E87.70 - FLUID OVERLOAD, UNSPECIFIED Status: Acute (4) COPD exacerbation Code(s): J44.1 - CHRONIC OBSTRUCTIVE PULMONARY DISEASE W (ACUTE) EXACERBATION Status: Acute (5) CKD (chronic kidney disease) stage 3, GFR 30-59 ml/min Code(s): N18.3 - CHRONIC KIDNEY DISEASE, STAGE 3 (MODERATE) Status: Chronic (6) Hypokalemia Code(s): E87.6 - HYPOKALEMIA Status: Acute (7) Chronic a-fib Code(s): I48.2 - CHRONIC ATRIAL FIBRILLATION Status: Chronic Comment: rate controlled (8) Chronic anticoagulation Code(s): Z79.01 - PRISON (CURRENT) USE OF ANTICOAGULANTS Status: Chronic (9) Chronic diastolic heart failure Code(s): I50.32 - CHRONIC DIASTOLIC (CONGESTIVE) HEART FAILURE Status: Chronic (10) Malnutrition Code(s): E46 - UNSPECIFIED PROTEIN-CALORIE MALNUTRITION Status: Acute - Plan DVT proph w/SCDs cont Po Vancomycin.no plans for finger Sx. -: resume diet -: héctor Martinez tomorrow back to rehab.HD stable. -: am labs. * . Review of Systems - Review of Systems Constitutional: weakness, malaise. negative: fever, chills, sweats, other Respiratory: negative: Cough, Dry, Shortness of Breath, Hemoptysis, SOB with Excertion, Pleuritic Pain, Sputum, Wheezing Cardiovascular: negative: chest pain, palpitations, orthopnea, paroxysmal nocturnal dyspnea, edema, light headedness, other Gastrointestinal: negative: Nausea, Vomiting, Abdominal Pain, Diarrhea, Constipation, Melena, Hematochezia, Other Genitourinary: negative: Dysuria, Frequency, Incontinence, Hematuria, Retention , Other Musculoskeletal: negative: Neck Pain, Shoulder Pain, Arm Pain, Back Pain, Hand Pain, Leg Pain, Foot Pain, Other Neurological: negative: Weakness, Numbness, Incoordination, Change in Speech, Confusion, Seizures, Other - Medications/Allergies Allergies/Adverse Reactions: Allergies Allergy/AdvReac Type Severity Reaction Status Date / Time Penicillins Allergy Verified 02/07/17 18:34 Medications: Current Medications Albuterol/Ipratropium (Duoneb) 3 ml NEB [id number] [facility] Last Admin: 03/13/17 12:33 Dose: Not Given Albuterol/Ipratropium (Duoneb) 3 ml NEB [id number] PRN PRN Reason: SOB &/or Wheezing Aspirin (Aspirin Chewable) 81 mg PO DAILY [facility] Last Admin: 03/13/17 10:06 Dose: 81 mg Bisacodyl (Dulcolax) 10 mg PO DAILYPRN PRN PRN Reason: Constipation Cyanocobalamin (Vitamin B-12) 1,000 mcg PO DAILY [facility] Last Admin: 03/13/17 10:07 Dose: 1,000 mcg Folic Acid (Folvite) 1 mg PO DAILY [facility] Last Admin: 03/13/17 10:06 Dose: 1 mg Furosemide (Lasix) 40 mg PO DAILY [facility] Last Admin: 03/13/17 10:06 Dose: 40 mg Guaifenesin (Mucinex) 1,200 mg PO Q12HR [facility] Last Admin: 03/13/17 10:06 Dose: 1,200 mg Guaifenesin/Dextromethorphan (Robitussin Dm) 15 ml PO Q4H PRN PRN Reason: Cough Sodium Chloride (Normal Saline 0.9%) 1,000 mls @ 75 mls/hr IV .[id number] [facility] Last Admin: 03/13/17 15:17 Dose: Not Given Iron/Minerals/Multivitamins (Theragran M) 1 tab PO DAILY [facility] Last Admin: 03/13/17 10:07 Dose: 1 tab Melatonin (Melatonin) 6 mg PO HS [facility] Last Admin: 03/12/17 22:13 Dose: 6 mg Metoprolol Tartrate (Lopressor) 50 mg PO BID [facility] Last Admin: 03/13/17 10:06 Dose: 50 mg Miscellaneous Medication (Pharmacy To Dose) 1 each PO PRN PRN PRN Reason: Pharmacy to dose Pantoprazole Sodium (Protonix) 40 mg PO 2100 [facility] Last Admin: 03/12/17 22:13 Dose: 40 mg Vancomycin HCl (First Vancomycin) 125 mg PO QID [facility] Last Admin: 03/13/17 13:32 Dose: 125 mg Warfarin Sodium (Coumadin) 4 mg PO 1700 [facility] Last Admin: 03/12/17 17:00 Dose: 4 mg Zinc Sulfate (Zinc Sulfate) 220 mg PO BID [facility] Last Admin: 03/13/17 10:05 Dose: 220 mg
--- NOTE | 2017-03-13 16:56 | PRG ---
DATE OF SERVICE: 03/13/2017 This is the patient that we were seen in consultation for possible C. diff colitis that overnight rem ained stable. His diarrhea has almost completely resolved. He denies abdominal pain, nausea or vomi ting. We will advance his diet today and continue antibiotic treatment per the primary service. At this time, we will sign off. This patient was evaluated with Dr. Wu this morning during rounds.
[2017-03-13] MEDS: Warfarin Sodium 2 MG TAB PO SCH (17:04)
[2017-03-13] MEDS: Melatonin 3 MG TAB PO SCH (22:50)
[2017-03-14 05:36] LABS: #Eosinphils 0.1 thou/uL (0.0-0.7); #Lymphocytes 1.1 thou/uL (1.20-3.40); #Monocytes 1.1 thou/uL (0.11-0.59); #Neutrophils 9.1 thou/uL (1.40-6.50); %Basophils 0.1 % (0.0-1.0); %Eosinophils 0.7 % (0.0-10.0); %Lymphocytes 9.7 % (21.0-51.0); %Monocytes 9.4 % (0.0-10.0); %Neutrophils 80.1 % (42.0-75.0); Hemoglobin 13.6 g/dL (14.0-18.0); Mean Corpuscular Hemoglobin 32.7 pg (27.0-31.0); Mean Platelet Volume 7.2 fL (7.4-10.4); Platelet Count 247 thou/uL (130-400); RBC Distribution Width 14.7 % (11.5-14.5); Red Blood Cell (RBC) Count 4.16 mill/uL (4.70-6.10); White Blood Cell (WBC) Count 11.3 thou/uL (4.8-10.8)
[2017-03-14 05:47] LABS: Prothrombin Time 32.4 SEC (12.0-14.7)
[2017-03-14 06:09] LABS: Anion Gap 14 mmol/L (10-20); BUN (Urea Nitrogen) 26 mg/dL (8.4-25.7); Calc. Creatinine Clearance 45 mL/min (70-130); Calcium 8.6 mg/dL (7.8-10.44); Carbon Dioxide 27 mmol/L (23-31); Chloride 96 mmol/L (98-107); Estimated GFR-MDRD 58; Glucose 126 mg/dL (83-110); Magnesium 1.7 mg/dL (1.6-2.6); Potassium 3.6 mmol/L (3.5-5.1); Sodium 133 mmol/L (136-145)
[2017-03-14] MEDS: Multivitamin W/ Minerals 1 TAB PO SCH (09:13)
[2017-03-14] MEDS: Folic Acid 1 MG TAB PO SCH (09:13)
[2017-03-14] MEDS: Furosemide 20 MG TAB PO SCH (09:13)
[2017-03-14] MEDS: Cyanocobalamin (Vitamin B-12) 1,000 MCG TAB PO SCH (09:13)
[2017-03-14] MEDS: Zinc Sulfate 220 MG CAP PO SCH ×2 (09:13→21:50)
[2017-03-14] MEDS: Metoprolol Tartrate 50 MG TAB PO SCH ×2 (09:13→21:51)
[2017-03-14] MEDS: Vancomycin HCl 25 MG/ML Oral PO SCH ×4 (09:13→21:49)
[2017-03-14] MEDS: guaiFENesin ER 600 MG TAB PO SCH ×2 (09:13→21:49)
[2017-03-14] MEDS: Warfarin Sodium 2 MG TAB PO SCH (18:15)
[2017-03-14] MEDS: Melatonin 3 MG TAB PO SCH (21:49)
--- NOTE | 2017-03-14 23:21 | DIS ---
DATE OF ADMISSION: 03/11/2017 DATE OF DISCHARGE: 03/14/2017 DISCHARGE DIAGNOSES: 1. Recrudescence of Clostridium difficile colitis. 2. Recent Clostridium difficile colitis. 3. History of left index finger osteomyelitis. 4. Malnutrition. 5. Chronic diastolic heart failure. 6. Chronic atrial fibrillation on chronic anticoagulation. 7. Hypokalemia. 8. Chronic kidney disease. 9. Systemic inflammatory response syndrome. 10. Fluid overload, resolved. 11. Chronic obstructive pulmonary disease exacerbation, resolved. DISCHARGE MEDICATIONS: Resume the home medication as per the HPI. New medications: Vancomycin 125 mg p.o. q.i.d. for a total of 21 days. DISCHARGE DISPOSITION: Home with home health. PRIMARY CARE PHYSICIAN: Dr. Arnold Giles. DISCHARGE FOLLOWUP: 1. Home health. 2. Infectious Disease, Dr. Monae. 3. Hand Surgery, Dr. Cannon. 4. Primary care physician. CONSULTATIONS: Inhouse included; 1. General Surgery, Dr. Wu. 2. Infectious Disease, Dr. Monae. 3. GI, Dr. Clarke. PROCEDURES DONE IN THE HOSPITAL: Included; 1. Upper extremity MRI, which showed persistent chronic osteomyelitis of the middle and distal phala nges of the left finger. 2. Chest x-ray, which was unremarkable for any evidence of infiltrate. 3. CT scan of the abdomen and pelvis, which showed mild ascending colitis. 4. Renal ultrasound, which was unremarkable, no hydronephrosis. 5. Right hip MRI, which shows some soft tissue nonspecific edema, otherwise unremarkable. HISTORY OF PRESENTING ILLNESS: Mr. Sharma is a 77-year-old male who was recently admitted and disch arged from our facility last month after being treated for Clostridium difficile colitis and who also has history of left index finger osteomyelitis, treated with IV vancomycin as well as I&D by Dr. Cortes collier, who presented back again from the rehab for incidental finding of leukocytosis and complains o f malaise and poor appetite and abdominal pain. Please see admission history and physical for furthe r details. He was hemodynamically stable. He underwent a battery of imaging studies as above. A CT scan of the abdomen and pelvis showed some mild ascending colitis. His stools were again positive f or C. diff. Please note that he has finished treatment with oral vancomycin for Clostridium difficil e and finished IV vancomycin through a PICC line for his left finger osteomyelitis. HOSPITAL COURSE: Infectious Disease as well as General Surgery and Gastroenterology were consulted Jonathan Cannon, the hand surgeon. He himself also saw the patient and the patient had prolong ed hospital course, but in summary, he was restarted on oral vancomycin for recrudescence of C. diffi cile. The rest of his workup was unremarkable. His index finger showed chronic osteomyelitis withou t any new changes and thus he did not require any surgery. General Surgery was consulted with concerns of abdominal pain, but obviously they did not have any bradshaw rgical procedures to do with this patient as his abdomen was nonsurgical and benign. They signed off . GI was consulted for questions recurrent C. difficile and once again they have recommended continuati on of vancomycin and avoidance of other antibiotics. Part of the problem was the patient was in rehabilitation where he was sharing a room with another pa tient who also had a Clostridium difficile infection. For this reason, he refused to go back to the rehab and home health was arranged for him as he expressed wishes to go home. This was arranged with the help of the employment case manager earlier today. Other than he is hemodynamically stable. PHYSICAL EXAMINATION: He was seen and examined prior to discharge. His physical exam included: VITAL SIGNS: Temperature 97.4, pulse of 86, respirations 16, blood pressure 130/70. GENERAL: No acute distress, awake, alert, oriented. CHEST: Clear to auscultation. HEART: Rate and rhythm is regular. ABDOMEN: The patient has no abdominal pain. Abdomen is soft, nontender, nondistended. No diarrhea. LABORATORY EXAMINATION: CBC Shows WBC is 11.3, which was 18.7 upon presentation, otherwise unremarka ble. Serum chemistries within normal limits. His renal function is more than adequate. His culture results including blood cultures and influenza testing are negative. Clostridium difficile antigen and toxin positive. He is instructed to follow up with primary care physician as well as Infectious Disease as well as [facility] Surgery. Total time spent 35 minutes.
[2017-03-15 05:04] LABS: Platelet Count 233 thou/uL (130-400)
[2017-03-15 05:14] LABS: INR-International Normal Ratio 3.6; Prothrombin Time 37.6 SEC (12.0-14.7)
[2017-03-15] MEDS: Metoprolol Tartrate 50 MG TAB PO SCH (08:43)
[2017-03-15] MEDS: Cyanocobalamin (Vitamin B-12) 1,000 MCG TAB PO SCH (08:43)
[2017-03-15] MEDS: Folic Acid 1 MG TAB PO SCH (08:43)
[2017-03-15] MEDS: guaiFENesin ER 600 MG TAB PO SCH (08:43)
[2017-03-15] MEDS: Multivitamin W/ Minerals 1 TAB PO SCH (08:44)
[2017-03-15] MEDS: Zinc Sulfate 220 MG CAP PO SCH (08:44)
[2017-03-15] MEDS: Furosemide 20 MG TAB PO SCH (08:44)
[2017-03-15] MEDS: Vancomycin HCl 25 MG/ML Oral PO SCH ×3 (08:44→17:39)
[2017-03-15] MEDS ORDERED: Tamsulosin HCl 0.4 MG CAP PO SCH (09:00)
--- NOTE | 2017-03-15 15:08 | DIS ---
DATE OF DISCHARGE: 03/15/2017 DISCHARGE DISPOSITION: Home with Home Health Care through [facility]. The patient was seen and examined on the day of discharge, denies any new complaints. No chest pain, shortness of breath, palpitations. His INR on the day of discharge is 3.6. He was advised to hold Coumadin. He will require daily INR check until stable. Primary care physician is advised to follow. Please refer to the discharge summary dictated by Dr. Diane solitario 03/14/2017 for details on this hospitalization. Plan of care was discussed with the patient and he stated understanding.
[2017-03-15 16:48] VITALS: BP 104/76; TEMP 97.3
--- NOTE | 2017-03-15 20:59 | CON ---
DATE OF CONSULTATION: 03/15/2017 REASON FOR CONSULTATION: Consultation requested for penile edema, penile swelling. HISTORY OF PRESENT ILLNESS: The patient is a 77-year-old male who is getting ready to be discharged after being admitted for an elevated white count that has been coming down when the patient noted some swelling of the penis. Urology was consulted. I spoke with the attending who evaluated the swelling and was not concerned for paraphimosis and said there was no other issue and he can be evaluated that evening or the next day. The patient reports noticing a little bit of swelling when he was just getting up ready to get dressed and go home. He has not had that before and is about the same as it was yesterday and is not painful. We reviewed how this is simply edema and is secondary to the most dependent portions of his tissues and he can elevate this to keep it from worsening. Normally he has q. 1-3 hours nocturia x2. He has hesitancy, weak stream, but no leakage, gross hematuria, stones, urinary tract infections. He would be interested in trying the medicine to help with urination. We discussed BPH and tamsulosin and will start this. If he tolerates the first dose, then I asked the nurse to continue this as an outpatient and prescribe on my behalf if so. Ultimately he can follow him as an outpatient to evaluate this further. PAST MEDICAL HISTORY: Significant for chronic atrial fibrillation, CHF, COPD, hypertension, hypothyroid, left finger osteomyelitis for which he has been given multiple antibiotics and then ultimately got C. diff colitis and he had been given oral vancomycin. PAST SURGICAL HISTORY: Significant for incision and drainage of left finger in January, appendectomy, tonsils, ears and nose surgery. MEDICATIONS: Include Lasix 40 a day, zinc b.i.d., lactobacillus, Protonix 40, multivitamin, melatonin 6 at bedtime, folic acid 1 daily, DuoNebs every 6 hours , aspirin 81 mg, B12 1000 mcg, Dulcolax as needed, Imodium as needed, metoprolol 50 b.i.d. and Coumadin 4 mg daily. ALLERGIES: He is allergic to PENICILLIN. REVIEW OF SYSTEMS: Reveal he initially had diarrhea, but that is better since being admitted. He has not had a colonoscopy. He does have shortness of breath with exertion, but he denies any cough or chest pain. He is not aware of prostate cancer screening. FAMILY HISTORY: Significant for coronary artery disease. Mom in her 80s and father at 90, sister still alive at 90 and there are no known cancers. SOCIAL HISTORY: He denies any current smoking, drug, or alcohol abuse. He did smoke remotely in the past. PHYSICAL EXAMINATION: VITAL SIGNS: He has been afebrile 97.4, heart rate is up to 130, otherwise in the 70s and 80s, blood pressure 103/70, respiratory rate 16. His urine output was listed as voided and 700mL as well. GENERAL: He is alert and oriented and easily in and out of the bed without difficulty. No scleral icterus. No obvious JVD. CARDIOVASCULAR: Irregular rhythm without any obvious murmurs. Regular rate. LUNGS: Had intermittent rhonchi, but otherwise clear. ABDOMEN: Soft, nondistended, nontender. GENITOURINARY: Testes were descended bilaterally without masses. Phallus was uncircumcised with some foreskin edema. I was able to retract and reduce the foreskin without difficulty. There was no lesions noted. Digital rectal exam revealed an enlarged prostate, left larger than right, but there was no induration, nodules or concern for cancer. EXTREMITIES: He had significant lower extremity edema that was pitting on both sides. LABORATORY DATA: Reveal a normal CBC with white count of 11.3 coming down from 18.7 upon admission, and neutrophils down to 80%. BUN and creatinine showed 26 and 1.20 with the prior up to 1.7 in the recent past. Urinalysis from admission showed 0-3 wbcs, 0-3 rbcs, no bacteria and 4-[address] scan with contrast was reviewed personally from 03/24/2017 showed no hydronephrosis, stones or masses within normal bladder and prostate with nonspecific ascending colon thickening. Renal ultrasound and bladder ultrasound from 03/11/2017 was within normal limits and his bladder capacity measured to 32 during that scan. ASSESSMENT AND PLAN: We have a 77-year-old male with penile swelling consistent with edema and mild anasarca, but definitely dependent edema. We reviewed elevating the penis with supportive underwear. He also has benign prostatic hypertrophy. I recommend starting tamsulosin for this reason, he can follow up as an outpatient with me to further monitor his benign prostatic hypertrophy. [facility]
--- NOTE | 2017-03-17 19:40 | EKG ---
Test Reason : PREOP Blood Pressure : / mmHG Vent. Rate : 107 BPM Atrial Rate : 115 BPM P-R Int : 000 ms QRS Dur : 104 ms QT Int : 368 ms P-R-T Axes : 000 001 198 degrees QTc Int : 491 ms Atrial fibrillation with rapid ventricular response Low voltage QRS Nonspecific ST and T wave abnormality , probably digitalis effect Abnormal ECG When compared with ECG of 18-JAN-2017 10:15, Nonspecific T wave abnormality now evident in Inferior leads Nonspecific T wave abnormality now evident in Anterior leads QT has lengthened Confirmed by CALLUM MCKAY (2) on 03/17/2017 7:40:05 PM Referred By: REKHA Confirmed By:CALLUM MCKAY
== END 2017-03-15 18:30 | disposition home health service (06) | DRG 372 ==
LOC: SDC 09:04 → SURG A 14:51
PROVIDERS: ADMIT Orthopaedic Surgery Hand Surgery; ATTEND Orthopaedic Surgery Hand Surgery
DX: A04.71 Enterocolitis due to Clostridium difficile, recurrent (principal); I50.32 Chronic diastolic (congestive) heart failure; E46 Unspecified protein-calorie malnutrition; E87.70 Fluid overload, unspecified; I08.1 Rheumatic disorders of both mitral and tricuspid valves; I42.9 Cardiomyopathy, unspecified; M86.642 Other chronic osteomyelitis, left hand; I13.0 Hypertensive heart and chronic kidney disease with heart failure and stage 1 through stage 4 chronic kidney disease, or unspecified chronic kidney disease; I48.2 Chronic atrial fibrillation; J44.1 Chronic obstructive pulmonary disease with (acute) exacerbation; E03.9 Hypothyroidism, unspecified; Z79.01 Long term (current) use of anticoagulants; Z87.891 Personal history of nicotine dependence; Z88.0 Allergy status to penicillin; Z79.82 Long term (current) use of aspirin; E87.6 Hypokalemia; N48.89 Other specified disorders of penis; N40.0 Benign prostatic hyperplasia without lower urinary tract symptoms; N18.3 Chronic kidney disease, stage 3 (moderate); Z68.21 Body mass index [BMI] 21.0-21.9, adult
CPT/HCPCS: 36415; 71046; 74178; 76770; 80048; 80076; 81001; 82150; 83690; 83735; 83880; 84100; 84484; 85014; 85018; 85025; 85049; 85610; 85652; 85730; 86140; 87040; 87324; 87449; 93005; 93010; 94640; A4216; A9579; G8978-GP-CI; G8979-GP-CI; G8980-GP-CI; G8987-GO-CI; G8988-GO-CI; G8989-GO-CI; J1940; J2001; J2250; J3480; J3490; J7050; J7620; S0020

== ENCOUNTER 2017-05-05 06:07 | Day surgery (SDC) | payer MEDICARE ==
[2017-05-04 08:54] VITALS: BMI 21.2
[2017-05-05 06:53] LABS: #Basophils 0.1 thou/uL (0.0-0.2); #Eosinphils 0.2 thou/uL (0.0-0.7); #Lymphocytes 1.6 thou/uL (1.20-3.40); #Monocytes 1.1 thou/uL (0.11-0.59); #Neutrophils 4.6 thou/uL (1.40-6.50); %Basophils 0.9 % (0.0-1.0); %Eosinophils 2.6 % (0.0-10.0); %Lymphocytes 21.1 % (21.0-51.0); %Monocytes 14.1 % (0.0-10.0); %Neutrophils 61.3 % (42.0-75.0); Hemoglobin 11.4 g/dL (14.0-18.0); Mean Corpuscular Hemoglobin 32.3 pg (27.0-31.0); Mean Platelet Volume 7.1 fL (7.4-10.4); Platelet Count 220 thou/uL (130-400); RBC Distribution Width 16.8 % (11.5-14.5); Red Blood Cell (RBC) Count 3.53 mill/uL (4.70-6.10); White Blood Cell (WBC) Count 7.5 thou/uL (4.8-10.8)
[2017-05-05 07:03] LABS: INR-International Normal Ratio 2.6; PTT 44.9 SEC (22.9-36.1); Prothrombin Time 29.3 SEC (12.0-14.7)
[2017-05-05 07:16] LABS: Anion Gap 13 mmol/L (10-20); BUN (Urea Nitrogen) 33 mg/dL (8.4-25.7); Calc. Creatinine Clearance 30 mL/min (70-130); Calcium 9.1 mg/dL (7.8-10.44); Carbon Dioxide 28 mmol/L (23-31); Chloride 100 mmol/L (98-107); Estimated GFR-MDRD 37; Glucose 82 mg/dL (83-110); Potassium 4.3 mmol/L (3.5-5.1); Sodium 137 mmol/L (136-145)
[2017-05-05] MEDS ORDERED: Diprivan 0 ML ONE (07:21)
[2017-05-05] MEDS ORDERED: Diprivan 20 ML ONE (07:44)
[2017-05-05] MEDS ORDERED: Ketamine 50 MG/ML VIAL ONE (07:44)
--- NOTE | 2017-05-05 16:36 | EKG ---
Test Reason : PREOP Blood Pressure : / mmHG Vent. Rate : 089 BPM Atrial Rate : 208 BPM P-R Int : 000 ms QRS Dur : 096 ms QT Int : 368 ms P-R-T Axes : 000 000 094 degrees QTc Int : 447 ms Atrial fibrillation Low voltage QRS Nonspecific T wave abnormality Abnormal ECG When compared with ECG of 11-MAR-2017 12:07, Nonspecific T wave abnormality no longer evident in Inferior leads Confirmed by DR. Rajwinder JUSTICE (3) on 05/05/2017 4:36:16 PM Referred By: LYSSA Confirmed By:DR. Rajwinder JUSTICE
--- NOTE | 2017-05-05 19:34 | ECHO ---
DATE OF SERVICE: 05/05/2017 Transesophageal echo was done for evaluation of mitral valve regurgitation and possible prolapse. The Anesthesiology department provided with sedation for the patient. Please see their notes for det ails. After adequate sedation was achieved, the transesophageal probe was inserted into the mouth and into the esophagus without issues. Multiplanar views were then obtained. Left ventricle is normal size with normal wall thickness. Systolic function is normal with EF estima junito at 60-65%. Left atrium is severely dilated, left atrial appendage is large with reduced velocities. No evidence of mass or thrombus. Right atrium is severely dilated. No evidence of mass or thrombus. Right ventricle is normal size with mildly reduced RV systolic function. Aortic valve is sclerotic but opens well, no stenosis or significant regurgitation. Mitral valve has moderate mitral valve prolapse of the posterior leaflet. Color Doppler suggest mode rate to severe, most likely severe mitral regurgitation with Coanda effect. Tricuspid valve is structurally normal. There is moderate TR with no stenosis. Pulmonary valve structurally normal, no stenosis or regurgitation. Thoracic aorta shows grade III/V atherosclerotic disease. CONCLUSIONS: 1. Normal LV systolic function. 2. Severely dilated left and right atrium. 3. Aortic valve sclerosis. 4. Moderate prolapse of the posterior leaflet of the mitral valve with severe mitral regurgitation. 5. Moderate TR. 6. Grade III/V atherosclerotic disease of the thoracic aorta.
== END 2017-05-05 10:00 | disposition home or self-care (01) ==
LOC: CCL 06:07
PROVIDERS: ATTEND Internal Medicine Cardiovascular Disease
PROC: B24BZZ4 Ultrasonography of Heart with Aorta, Transesophageal (ICD-10-PCS; principal; 2017-05-05)
DX: I34.1 Nonrheumatic mitral (valve) prolapse (principal); I07.1 Rheumatic tricuspid insufficiency; I34.0 Nonrheumatic mitral (valve) insufficiency; I48.2 Chronic atrial fibrillation; I70.0 Atherosclerosis of aorta; J44.9 Chronic obstructive pulmonary disease, unspecified; K21.9 Gastro-esophageal reflux disease without esophagitis; M19.90 Unspecified osteoarthritis, unspecified site; I11.0 Hypertensive heart disease with heart failure; I50.9 Heart failure, unspecified; Z88.0 Allergy status to penicillin
CPT/HCPCS: 80048; 85025; 85610; 85730; 93005; 93010; 93312; J2704

== ENCOUNTER 2017-05-07 11:40 | Inpatient (IN) | payer MEDICARE ==
[2017-05-07] MEDS ORDERED: Furosemide 100 MG/10 ML VIAL ONE (12:16)
[2017-05-07 12:20] LABS: INR-International Normal Ratio 2.4; PTT 44.1 SEC (22.9-36.1); Prothrombin Time 27.2 SEC (12.0-14.7)
[2017-05-07 12:32] LABS: #Eosinphils 0.2 thou/uL (0.0-0.7); #Lymphocytes 1.8 thou/uL (1.20-3.40); #Monocytes 1.1 thou/uL (0.11-0.59); %Basophils 0.4 % (0.0-1.0); %Eosinophils 2.4 % (0.0-10.0); %Lymphocytes 22.4 % (21.0-51.0); %Monocytes 13.8 % (0.0-10.0); Hemoglobin 11.8 g/dL (14.0-18.0); Mean Corpuscular HGB CONC 32.3 g/dL (32.0-36.0); Mean Corpuscular Hemoglobin 32.7 pg (27.0-31.0); Mean Platelet Volume 7.1 fL (7.4-10.4); Platelet Count 256 thou/uL (130-400); RBC Distribution Width 16.5 % (11.5-14.5); Red Blood Cell (RBC) Count 3.62 mill/uL (4.70-6.10); White Blood Cell (WBC) Count 8.1 thou/uL (4.8-10.8)
[2017-05-07 12:38] LABS: ALT (SGPT) 18 U/L (8-55); AST (SGOT) 29 U/L (5-34); Albumin 3.6 g/dL (3.4-4.8); Alkaline Phosphatase 144 U/L (40-150); Anion Gap 12 mmol/L (10-20); BUN (Urea Nitrogen) 28 mg/dL (8.4-25.7); Bilirubin, Total 1.1 mg/dL (0.2-1.2); CK (CPK) 32 U/L (30-200); Calc. Creatinine Clearance 0 mL/min (70-130); Carbon Dioxide 29 mmol/L (23-31); Chloride 101 mmol/L (98-107); Estimated GFR-MDRD 47; Glucose 94 mg/dL (83-110); Lipase 37 U/L (8-78); Potassium 4.1 mmol/L (3.5-5.1); Protein, Total 6.6 g/dL (5.8-8.1); Sodium 138 mmol/L (136-145)
[2017-05-07 12:41] LABS: CKMB 2.2 ng/mL (0-6.6); Troponin I 0.018 ng/mL (< 0.028)
[2017-05-07] MEDS ORDERED: Metoprolol Tartrate 5 MG/5 ML VIAL ONE (13:28)
--- NOTE | 2017-05-07 14:30 | RAD ---
SINGLE VIEW OF THE CHEST: COMPARISON: 04/11/17. HISTORY: The patient has dyspnea. Recent cardiac procedures this seen. Shortness of breath and fluid retenti on. FINDINGS: A single view of the chest shows an enlarged cardiomediastinal silhouette. Increased interstitial ma rkings are seen. There appears to be a small right pleural effusion. No significant change has occu rred compared to the prior exam. IMPRESSION: Cardiomegaly and small right pleural effusion. POS: INGRID
--- NOTE | 2017-05-07 14:37 | PDOC.EVN ---
Attending Addendum - Attending Addendum Date/Time: 05/07/17 2980 I personally evaluated the patient and discussed the management with Dr. Domínguez. I agree with the History, Examination, Assessment and Plan documented in her H& P with any addition or exceptions noted below. Patient is 77 yo M with PMH dCHF, mitral valve prolapse with severe MR, COPD, HTN, Afib, and Hx Cdiff who presents with worsening COYLE and LE edema. He reports chronic LE edema that is felt to be due to his CHF precipitated by MR, and per family, they have received report this may not get much better until he has mitral valve replacement that is currently in workup. Patient had GLADYS on 05/05 to assess the function of the Mitral valve, and reports that since that time he has declined. Reports increasing COYLE as well as PND and orthopnea. His chronic LE edema has also worsened during this time. He endorses adhering to his fluid restriction as well as taking all prescribed medications daily. Otherwise, has no complaints. Exam is pertinent for thin appearing male in NAD, irregular heart rhythm but regular rate, G3/6 systolic murmur loudest at apex. Lungs are diminished with mild diffuse exp wheezes. Abdomen soft, NT, ND. Pulses equal. His legs have pitting edema 2-3+ to mid thigh, as well as scrotal swelling. Vitals are stable at this time. Labs pertinent for Cr 1.46, INR 2.4 ( on coumadin), BNP 906, Trop negative, and a CXR that by my read shows increased pulmonary vascular congestion as well as fluid in his R lung fissure, but no major effusions. Patient to be admitted for likely dCHF exacerbation possibly precipitated by his prodedure/anesthesia 2 days ago. Strict I/O, Increase his Lasix above home regimen. PT/OT. No echo as has normal documented EF 2 days ago. Will discuss case with Dr. Lord prior to discharge. Will also give Neb treatments and home COPD meds for his exp wheezes, though no evidence of COPD exacerbation. Supplemental O2 as needed. CKD appears at baseline. Contine meds for Afib, currently rate controlled, as well as continue anticoagulation. Patient to be admitted to telemetry.
[2017-05-07] MEDS ORDERED: Ondansetron HCl/PF 4 MG/2 ML Vial IVP PRN (15:56)
[2017-05-07] MEDS ORDERED: Ondansetron ODT 4 MG TAB SL PRN (15:56)
--- NOTE | 2017-05-07 16:58 | PDOC.FPRHP ---
- History of Present Illness Chief Complaint: Scrotal Swelling/SOB History of Present Illness: This is a 77 y/o M with PMHx HFpEF, MVP with severe MR, COPD, HTN, and Chronic a -fib who presents to the ED complaining of scrotal swelling and SOB. The patient was recently d/c'd from [facility] on 04/25 and was in stable condition at that time. The patient had a GLADYS done 2 days ago to evaluate his mitral regurgitation. He reports that yesterday he noticed that his left hand was swollen and then this morning when he woke up he noticed that his scrotum was really swollen and his legs were more swollen than usual. He endorses orthopnea and PND as well as COYLE. The patient has been compliant with his medications as well as his 1500mL fluid restriction. He denies any palpitation, dizziness, or lightheadness. He did not take his medications this AM because he was not feeling well. ED Course: Metoprolol 2.5mg IVP, Furosemide 80mg IVP - Allergies/Adverse Reactions Allergies Allergy/AdvReac Type Severity Reaction Status Date / Time Penicillins Allergy Verified 05/04/17 08:54 - Home Medications Medication Instructions Recorded Confirmed Type Aspirin [Aspirin Chewable Tablet] 81 mg PO QAM 01/06/17 05/07/17 History Metoprolol Tartrate 50 mg PO BID 01/06/17 05/07/17 History Ipratropium/Albuterol Sulfate 3 ml NEB T9TO-BP #30 neb 02/04/17 05/07/17 Rx [DuoNeb] Bisacodyl [Dulcolax] 10 mg PO DAILYPRN PRN 03/11/17 05/07/17 History Guaifenesin DM 100-10 [Robitussin 15 ml PO Q4H PRN 03/11/17 05/07/17 History DM] Budesonide [Pulmicort] 0.5 mg IH BID 03/25/17 05/07/17 History Levothyroxine Sodium [Synthroid] 25 mcg PO 0600 03/25/17 05/07/17 History Potassium Chloride 20 meq PO Q12HR udcup 04/25/17 05/07/17 Rx Tamsulosin HCl [Flomax] 0.4 mg PO DAILY cap 04/25/17 05/07/17 Rx Warfarin Sodium [Coumadin] 4 mg PO 1700 tab 04/25/17 05/07/17 Rx Cyanocobalamin (Vitamin B-12) 1,000 mcg PO QAM 05/04/17 05/07/17 History [Vitamin B-12] Folic Acid [Folvite] 1 mg PO QAM 05/04/17 05/07/17 History Furosemide [Lasix] 40 mg PO BID 05/04/17 05/07/17 History Pantoprazole [Protonix] 40 mg PO QAM 05/04/17 05/07/17 History Acetaminophen [Tylenol Extra 500 mg PO Q6H PRN 05/05/17 05/07/17 History Strength] - History PMHx: 1. HFpEF (EF 60-65%) 2. mitral valve prolapse with severe MR 3. COPD 4. HTN 5. Chronic Afib on chronic anticoagulation 6. Hx Cdiff 7. Hypothyroidism PSHx: 1. Appendectomy 2. Tonsillectomy 3. Cataracts 4. L index finger I&D FHx: HTN Social: Past tobacco abuse, quit years ago, Denies EtOH or drug use - Review of Systems General: denies: fever/chills, fatigue ENT: denies: nasal congestion, rhinorrhea Respiratory: reports: cough, shortness of breath, exercise intolerance Cardiovascular: reports: edema, paroxysmal nocturnal dyspnea, orthopnea. denies : chest pain, palpitation Gastrointestinal: denies: nausea, vomiting, abdominal pain Genitourinary: denies: incontinence, dysuria, polyuria Skin: reports: rashes, lesions Musculoskeletal: denies: pain, tenderness Neurological: denies: numbness, syncope - Vital signs BP: [] HR: [] RR: [] Tmax: [] Pox: []% on [] Wt: [] - Physical Exam Constitutional: NAD, awake, alert and oriented HEENT: normocephalic and atraumatic, PERRLA, EOMI, no scleral icterus, grossly normal vision, MMM Neck: supple, FROM, trachea midline -Heart: irregularly irregular, no murmurs, gallops, or rubs. 2-3+ pitting edema up to the thighs and into the groin. 1+ edema in the left hand -Lungs: scant wheezes, no rales, rhonchi. Good air movement Abdomen: soft, non-tender, bowel sounds present, no masses/distention, other (R inguinal hernia) Musculoskeletal: normal structure, normal tone Neurological: no focal deficit, normal sensation Skin: good turgor, capillary refill <2 seconds, other (jomar bandages covering legs bilaterally, weeping from L arm) Psychiatric: normal mood and affect, good judgment and insight, intact recent and remote memory FMR H&P: Results - Labs Result Diagrams: 05/07/17 12:04 05/07/17 12:04 Lab results: WBC 8.1 thou/uL (4.8-10.8) 05/07/17 12:04 Hgb 11.8 g/dL (14.0-18.0) L 05/07/17 12:04 Hct 36.6 % (42.0-52.0) L 05/07/17 12:04 MCV 101.0 fl (80.0-94.0) H 05/07/17 12:04 Plt Count 256 thou/uL (130-400) 05/07/17 12:04 Neutrophils % 61.0 % (42.0-75.0) 05/07/17 12:04 Sodium 138 mmol/L (136-145) 05/07/17 12:04 Potassium 4.1 mmol/L (3.5-5.1) 05/07/17 12:04 Chloride 101 mmol/L (98-107) 05/07/17 12:04 Carbon Dioxide 29 mmol/L (23-31) 05/07/17 12:04 BUN 28 mg/dL (8.4-25.7) H 05/07/17 12:04 Creatinine 1.46 mg/dL (0.6-1.3) H 05/07/17 12:04 Glucose 94 mg/dL (83-110) 05/07/17 12:04 Calcium 9.0 mg/dL (7.8-10.44) 05/07/17 12:04 Total Bilirubin 1.1 mg/dL (0.2-1.2) 05/07/17 12:04 AST 29 U/L (5-34) 05/07/17 12:04 ALT 18 U/L (8-55) 05/07/17 12:04 Alkaline Phosphatase 144 U/L (40-150) 05/07/17 12:04 Creatine Kinase 32 U/L (30-200) 05/07/17 12:04 CK-MB (CK-2) 2.2 ng/mL (0-6.6) 05/07/17 12:04 B-Natriuretic Peptide 906.0 pg/mL (0-100) H 05/07/17 12:04 Serum Total Protein 6.6 g/dL (5.8-8.1) 05/07/17 12:04 Albumin 3.6 g/dL (3.4-4.8) 05/07/17 12:04 Lipase 37 U/L (8-78) 05/07/17 12:04 - EKG Interpretation EKG: atrial fibrillation, 103 BPM - Radiology Interpretation Chest x-ray Status: image reviewed by me, report reviewed by me Additional comment: Cardiomegaly, small right pleural effusion FMR H&P: A/P - Problem List (1) Acute on chronic heart failure with normal ejection fraction Current Visit: Yes Status: Acute Code(s): I50.33 - ACUTE ON CHRONIC DIASTOLIC (CONGESTIVE) HEART FAILURE (2) COPD (chronic obstructive pulmonary disease) Current Visit: No Status: Chronic Qualifiers: COPD type: COPD with acute exacerbation Qualified Code(s): J44.1 - Chronic obstructive pulmonary disease with (acute) exacerbation Comment: resolving (3) Chronic a-fib Current Visit: No Status: Chronic Code(s): I48.2 - CHRONIC ATRIAL FIBRILLATION Comment: rate controlled (4) Chronic anticoagulation Current Visit: No Status: Chronic Code(s): Z79.01 - NURSING HOME (CURRENT) USE OF ANTICOAGULANTS (5) Pulmonary hypertension Current Visit: No Status: Chronic Code(s): I27.20 - PULMONARY HYPERTENSION, UNSPECIFIED (6) Hypertension Current Visit: Yes Status: Acute Code(s): I10 - ESSENTIAL (PRIMARY) HYPERTENSION Qualifiers: Hypertension type: essential hypertension Qualified Code(s): I10 - Essential (primary) hypertension (7) CKD (chronic kidney disease) stage 3, GFR 30-59 ml/min Current Visit: No Status: Chronic Code(s): N18.3 - CHRONIC KIDNEY DISEASE, STAGE 3 (MODERATE) (8) Mitral regurgitation Current Visit: Yes Status: Acute Qualifiers: Cardiac valve disease etiology: nonrheumatic Qualified Code(s): I34.0 - Nonrheumatic mitral (valve) insufficiency - Plan 1. Acute on Chronic HFpEF Exacerbation Patient had GLADYS done on 05/[address] Lord that had EF of 60-65%. Significantly fluid overloaded on exam. BNP elevated. I spoke to Dr. Mayorga who is the patient's PCP and he stated that the patient is very responsive to fluids and to diuretics and can get very easily overloaded. -Lasix 40mg IV BID, will go up to 60 IV BID if the patient does not adequately diurese and will consider adding metolazone -Strict I/O's -Daily Weights -Fluid restrict to 1500mL -No need for a repeat Echo as the patient just had one -Speak to Dr. Lord prior to d/c 2. Chronic a-fib on chronic anticoagulation Patient was initially in RVR, but this resolved with a dose of IV metoprolol -Will monitor on tele -Continue home metoprolol -Continue warfarin 3. COPD Patient does not appear in an acute exacerbation at this time, but had some wheezes on exam -Duonebs prn -Continue home meds 4. HTN -Continue home meds 5. Hypothyroidism -Continue home meds 6. CKDIII Will continue fluid restriction and monitor -Avoid nephrotoxic agents Disposition/LOS: Admit to tele, length of stay likely 2 days FMR H&P: Upper Level - Pertinent history 77M presenting to ED with increasing BLE edema and CYOLE s/p GLADYS on 05/05. He is being seen by Dr. Lord in the outpatient setting for mitral valve prolapse work-up. GLADYS showed a normal EF with diastolic dysfunction secondary to severe mitral regurgitation from MVP. Patient has had increased lower extremity swelling and orthopnea since procedure despite taking all of his home medications as prescribed. BLE edema is usually 1+ pitting up to the knees, but he is having severe swelling all the way to the groin beginning on 05/05. He denies any SOB while sitting up, lower extremity redness/tenderness, fever/ chills, n/v/d, headache, abdominal pain, chest pain. - Pertinent findings PE significant for irregular rhythm but normal heart rate, 3/6 systolic murmur heard at apex, 3+ pitting edema of bilateral lower extremities extending to groin with scrotal swelling. Vital signs are normal. CXR shows pulmonary vascular congestion c/w volume overload. BNP of 900 is above baseline. Cr is elevated at 1.46 but appears to be at baseline. - Plan Date/Time: 05/07/17 1651 I, Cole Zapata, have evaluated this patient and agree with findings/plan as outlined by validation intern resident. Pertinent changes/additions are listed here. 1. dCHF exacerbation: most likely related to either sedation or fluids given for GLADYS on 05/05 but unknown at this time. Will increase his diuretic dose to Lasix 40mg IV BID. PCP was consulted and reports patient is very responsive to diuretics so we will hold off on metolazone this admission. Will speak with polymer chemist, Dr. Lord, prior to discharge. Strict I/O's with daily weights. Admit to tele/inpatient. 2. Atrial fibrillation: Continue medications including anticoagulant. Patient is rate controlled currently. 3. COPD: continue home medications with PRN Duonebs. Oxygen PRN to maintain saturation above 90%.
[2017-05-07] MEDS ORDERED: Acetaminophen 500 MG TAB PO PRN (16:59)
[2017-05-07] MEDS: Warfarin Sodium 2 MG TAB PO SCH (17:17)
[2017-05-07] MEDS: Budesonide 0.5 MG/2 ML NEB NEB SCH (18:53)
[2017-05-07] MEDS: Metoprolol Tartrate 50 MG TAB PO SCH (20:29)
[2017-05-07] MEDS: Potassium Chloride 20 MEQ TAB PO SCH (20:29)
[2017-05-08] MEDS: Furosemide 40 MG/4 ML VIAL SLOW IVP SCH ×2 (05:06→13:21)
[2017-05-08] MEDS: Levothyroxine Sodium 25 MCG TAB PO SCH (05:07)
[2017-05-08 05:37] LABS: #Basophils 0.1 thou/uL (0.0-0.2); #Eosinphils 0.1 thou/uL (0.0-0.7); #Lymphocytes 1.5 thou/uL (1.20-3.40); #Neutrophils 5.9 thou/uL (1.40-6.50); %Basophils 0.8 % (0.0-1.0); %Eosinophils 1.5 % (0.0-10.0); %Lymphocytes 17.2 % (21.0-51.0); %Neutrophils 68.5 % (42.0-75.0); Hemoglobin 12.1 g/dL (14.0-18.0); Mean Corpuscular HGB CONC 31.7 g/dL (32.0-36.0); Mean Platelet Volume 7.5 fL (7.4-10.4); Platelet Count 283 thou/uL (130-400); RBC Distribution Width 16.8 % (11.5-14.5); Red Blood Cell (RBC) Count 3.68 mill/uL (4.70-6.10); White Blood Cell (WBC) Count 8.7 thou/uL (4.8-10.8)
[2017-05-08 05:54] LABS: Anion Gap 14 mmol/L (10-20); BUN (Urea Nitrogen) 28 mg/dL (8.4-25.7); Calc. Creatinine Clearance 39 mL/min (70-130); Calcium 9.2 mg/dL (7.8-10.44); Carbon Dioxide 25 mmol/L (23-31); Chloride 102 mmol/L (98-107); Estimated GFR-MDRD 43; Glucose 118 mg/dL (83-110); Potassium 4.1 mmol/L (3.5-5.1); Sodium 137 mmol/L (136-145)
[2017-05-08] MEDS: Budesonide 0.5 MG/2 ML NEB NEB SCH ×2 (06:23→18:53)
--- NOTE | 2017-05-08 07:53 | PDOC.FM ---
- Subjective Subjective: Patient reports that he is feeling better this AM. He reports that his SOB has improved a little and he feels like the swelling has gone down some in his groin , legs, and arm. He noticed that he is urinating a lot more with this lasix dose. - Objective MAR Reviewed: Yes Vital Signs & Weight: Vital Signs (12 hours) Temp Pulse Resp BP BP Pulse Ox 05/08/17 07:31 98.0 F 87 17 113/63 94 L 05/08/17 06:23 87 18 92 L 05/08/17 05:05 97.5 F L 95 18 112/68 96 05/08/17 00:10 18 95 05/07/17 23:27 97.9 F 91 21 H 109/70 90 L 05/07/17 20:16 97.5 F L 99 20 132/68 98 05/07/17 20:00 97.5 F L 99 20 98 Weight Weight 74.389 kg I&O: 05/07/17 05/08/17 05/09/17 06:59 06:59 06:59 Intake Total 600 Output Total 1095 Balance -495 Result Diagrams: 05/08/17 04:15 05/08/17 04:15 <Oanh Domínguez - Last Filed: 05/08/17 07:51> - Objective Vital Signs & Weight: Vital Signs (12 hours) Temp Pulse Resp BP BP Pulse Ox 05/08/17 08:00 98.0 F 87 17 05/08/17 07:31 98.0 F 87 17 113/63 94 L 05/08/17 06:23 87 18 92 L 05/08/17 05:05 97.5 F L 95 18 112/68 96 05/08/17 00:10 18 95 05/07/17 23:27 97.9 F 91 21 H 109/70 90 L Weight Weight 74.389 kg I&O: 05/07/17 05/08/17 05/09/17 06:59 06:59 06:59 Intake Total 600 Output Total 1095 Balance -495 Result Diagrams: 05/08/17 04:15 05/08/17 04:15 <Antoine Berrios - Last Filed: 05/08/17 11:07> Phys Exam - Physical Examination Constitutional: NAD HEENT: moist MMs Respiratory: no rales, no rhonchi, wheezing present (trace expiratory wheezes bilaterally) Cardiovascular: no significant murmur, no rub, gallop, irregular Gastrointestinal: soft, non-tender, no distention, positive bowel sounds Musculoskeletal: edema present (3+ pitting edema up to mid thigh, edema of scrotum and penis, 1+ L arm) Neurological: non-focal, moves all 4 limbs Psychiatric: normal affect, A&O x 3 <Oanh Domínguez - Last Filed: 05/08/17 07:51> Dx/Plan (1) Acute on chronic heart failure with normal ejection fraction Code(s): I50.33 - ACUTE ON CHRONIC DIASTOLIC (CONGESTIVE) HEART FAILURE Status : Acute (2) COPD (chronic obstructive pulmonary disease) Status: Chronic QualifierTitle: COPD type: COPD with acute exacerbation Qualified Code(s) : J44.1 - Chronic obstructive pulmonary disease with (acute) exacerbation (3) Chronic a-fib Code(s): I48.2 - CHRONIC ATRIAL FIBRILLATION Status: Chronic (4) Chronic anticoagulation Code(s): Z79.01 - DINING SERVICE INSPECTOR (CURRENT) USE OF ANTICOAGULANTS Status: Chronic (5) Pulmonary hypertension Code(s): I27.20 - PULMONARY HYPERTENSION, UNSPECIFIED Status: Chronic (6) Hypertension Code(s): I10 - ESSENTIAL (PRIMARY) HYPERTENSION Status: Acute QualifierTitle: Hypertension type: essential hypertension Qualified Code( s): I10 - Essential (primary) hypertension (7) CKD (chronic kidney disease) stage 3, GFR 30-59 ml/min Code(s): N18.3 - CHRONIC KIDNEY DISEASE, STAGE 3 (MODERATE) Status: Chronic (8) Mitral regurgitation Status: Acute QualifierTitle: Cardiac valve disease etiology: nonrheumatic Qualified Code(s): I34.0 - Nonrheumatic mitral (valve) insufficiency - Plan Plan: 1. Acute on Chronic HFpEF Exacerbation Patient had GLADYS done on 05/[address] Lord that had EF of 60-65%. Significantly fluid overloaded on exam. BNP elevated. I spoke to Dr. Mayorga who is the patient's PCP and he stated that the patient is very responsive to fluids and to diuretics and can get very easily overloaded. I/O: Net -495mL since admission -Lasix 40mg IV BID, will go up to 60 IV BID if the patient does not adequately diurese and will consider adding metolazone -Strict I/O's -Daily Weights -Fluid restrict to 1500mL -No need for a repeat Echo as the patient just had one -Speak to Dr. Lord prior to d/c 2. Chronic a-fib on chronic anticoagulation Patient was initially in RVR, but this resolved with a dose of IV metoprolol -Will monitor on tele -Continue home metoprolol -Continue warfarin 3. COPD Patient does not appear in an acute exacerbation at this time, but had some wheezes on exam -Duonebs prn -Continue home meds 4. HTN -Continue home meds 5. Hypothyroidism -Continue home meds 6. CKDIII Will continue fluid restriction and monitor -Avoid nephrotoxic agents <Oanh Domínguez - Last Filed: 05/08/17 07:51> Attending Addendum - Attending Addendum Date/Time: 05/08/17 1105 I personally evaluated the patient and discussed the management with Dr. Domínguez. I agree with the History, Examination, Assessment and Plan documented above with any addition or exceptions noted below. Patient reports symptomatic improvement. His continues to have moderate/severe lower extremity edema. No respiratory complaints. Will continue with diuresis with increase in baseline Lasix. If does not diurese adequately today, will restart Metolazone therapy. Will discuss patient with Dr. Lord tomorrow. <Antoine Berrios - Last Filed: 05/08/17 11:07>
[2017-05-08] MEDS: Metoprolol Tartrate 50 MG TAB PO SCH ×2 (09:31→21:21)
[2017-05-08] MEDS: Tamsulosin HCl 0.4 MG CAP PO SCH (09:31)
[2017-05-08] MEDS: Folic Acid 1 MG TAB PO SCH (09:31)
[2017-05-08] MEDS: Cyanocobalamin (Vitamin B-12) 1,000 MCG TAB PO SCH (09:31)
[2017-05-08] MEDS: Potassium Chloride 20 MEQ TAB PO SCH ×2 (09:31→21:20)
[2017-05-08] MEDS: Warfarin Sodium 2 MG TAB PO SCH (16:34)
[2017-05-09 05:40] LABS: #Eosinphils 0.1 thou/uL (0.0-0.7); #Lymphocytes 1.3 thou/uL (1.20-3.40); #Monocytes 0.9 thou/uL (0.11-0.59); %Basophils 0.5 % (0.0-1.0); %Eosinophils 1.2 % (0.0-10.0); %Lymphocytes 15.9 % (21.0-51.0); %Monocytes 10.9 % (0.0-10.0); %Neutrophils 71.6 % (42.0-75.0); Hemoglobin 11.1 g/dL (14.0-18.0); Mean Corpuscular HGB CONC 31.1 g/dL (32.0-36.0); Mean Corpuscular Hemoglobin 32.3 pg (27.0-31.0); Mean Platelet Volume 7.3 fL (7.4-10.4); Platelet Count 247 thou/uL (130-400); RBC Distribution Width 16.5 % (11.5-14.5); Red Blood Cell (RBC) Count 3.44 mill/uL (4.70-6.10); White Blood Cell (WBC) Count 8.4 thou/uL (4.8-10.8)
[2017-05-09] MEDS: Levothyroxine Sodium 25 MCG TAB PO SCH (05:49)
[2017-05-09 05:51] LABS: Anion Gap 13 mmol/L (10-20); BUN (Urea Nitrogen) 30 mg/dL (8.4-25.7); Calc. Creatinine Clearance 37 mL/min (70-130); Carbon Dioxide 28 mmol/L (23-31); Chloride 102 mmol/L (98-107); Estimated GFR-MDRD 38; Glucose 103 mg/dL (83-110); Potassium 4.2 mmol/L (3.5-5.1); Sodium 139 mmol/L (136-145)
[2017-05-09] MEDS: Furosemide 40 MG/4 ML VIAL SLOW IVP SCH (05:51)
[2017-05-09] MEDS: Budesonide 0.5 MG/2 ML NEB NEB SCH ×2 (07:28→19:17)
[2017-05-09] MEDS ORDERED: Metolazone 5 MG TAB PO SCH (08:30)
[2017-05-09 08:38] VITALS: BMI 25.4
--- NOTE | 2017-05-09 09:16 | PDOC.FM ---
- Subjective Subjective: The patient reports that his breathing has improved and he is off O2. He has been up walking around a little bit yesterday. He is eating well. He denies any chest pain. He feels like the swelling in his legs has gone down significantly. He also feels like the swelling in his groin is completely resolved, but he still has a lot of swelling in his left arm. - Objective MAR Reviewed: Yes Vital Signs & Weight: Vital Signs (12 hours) Temp Pulse Resp BP BP Pulse Ox 05/09/17 07:28 98 16 94 L 05/09/17 07:24 98 16 94 L 05/09/17 03:45 97.5 F L 95 15 96/54 L 95 05/09/17 00:00 98.0 F 99 19 111/72 99 Weight Admit Weight 71.668 kg Weight 76.067 kg I&O: 05/08/17 05/09/17 05/10/17 06:59 06:59 06:59 Intake Total 600 1540 Output Total 1095 1100 Balance -495 440 Result Diagrams: 05/09/17 05:14 05/09/17 05:14 <Oanh Domínguez - Last Filed: 05/09/17 09:14> - Objective Vital Signs & Weight: Vital Signs (12 hours) Temp Pulse Pulse Pulse Resp BP BP 05/09/17 11:35 97.4 F L 95 17 05/09/17 09:19 119 H 113 H 95/62 100/72 05/09/17 08:55 98 17 05/09/17 08:00 98.0 F 98 17 05/09/17 07:28 98 16 05/09/17 07:24 98 16 05/09/17 03:45 97.5 F L 95 15 BP BP Pulse Ox 05/09/17 11:35 114/63 99 05/09/17 09:19 05/09/17 08:55 106/63 96 05/09/17 08:00 05/09/17 07:28 94 L 05/09/17 07:24 94 L 05/09/17 03:45 96/54 L 95 Weight Admit Weight 71.668 kg Weight 76.067 kg I&O: 05/08/17 05/09/17 05/10/17 06:59 06:59 06:59 Intake Total 600 1540 Output Total 1095 1100 Balance -495 440 Result Diagrams: 05/09/17 05:14 05/09/17 05:14 <Toi Harrington - Last Filed: 05/09/17 15:44> Phys Exam - Physical Examination Constitutional: NAD HEENT: moist MMs Respiratory: no rales, no rhonchi, wheezing present Cardiovascular: no significant murmur, no rub, irregular Gastrointestinal: soft, non-tender, no distention, positive bowel sounds Musculoskeletal: edema present (2+ bilateral legs up to mid thigh, 1+ in L arm) Neurological: non-focal, moves all 4 limbs Psychiatric: normal affect, A&O x 3 Skin: normal turgor, cap refill <2 seconds <Oanh Domínguez - Last Filed: 05/09/17 09:14> Dx/Plan (1) Acute on chronic heart failure with normal ejection fraction Code(s): I50.33 - ACUTE ON CHRONIC DIASTOLIC (CONGESTIVE) HEART FAILURE Status : Acute (2) COPD (chronic obstructive pulmonary disease) Status: Chronic QualifierTitle: COPD type: COPD with acute exacerbation Qualified Code(s) : J44.1 - Chronic obstructive pulmonary disease with (acute) exacerbation (3) Chronic a-fib Code(s): I48.2 - CHRONIC ATRIAL FIBRILLATION Status: Chronic (4) Chronic anticoagulation Code(s): Z79.01 - SHIFT NURSE MANAGER (CURRENT) USE OF ANTICOAGULANTS Status: Chronic (5) Pulmonary hypertension Code(s): I27.20 - PULMONARY HYPERTENSION, UNSPECIFIED Status: Chronic (6) Hypertension Code(s): I10 - ESSENTIAL (PRIMARY) HYPERTENSION Status: Acute QualifierTitle: Hypertension type: essential hypertension Qualified Code( s): I10 - Essential (primary) hypertension (7) CKD (chronic kidney disease) stage 3, GFR 30-59 ml/min Code(s): N18.3 - CHRONIC KIDNEY DISEASE, STAGE 3 (MODERATE) Status: Chronic (8) Mitral regurgitation Status: Acute QualifierTitle: Cardiac valve disease etiology: nonrheumatic Qualified Code(s): I34.0 - Nonrheumatic mitral (valve) insufficiency - Plan Plan: 1. Acute on Chronic HFpEF Exacerbation Patient had GLADYS done on 05/[address] Lord that had EF of 60-65%. Significantly fluid overloaded on exam. BNP elevated. I spoke to Dr. Mayorga who is the patient's PCP and he stated that the patient is very responsive to fluids and to diuretics and can get very easily overloaded. I/O: Net neutral -Lasix 40mg IV BID -Added metolazone 5mg daily to improved diuresis -Strict I/O's -Daily Weights -Fluid restrict to 1500mL -No need for a repeat Echo as the patient just had one -Will call Dr. Lord today 2. Chronic a-fib on chronic anticoagulation Patient was initially in RVR, but this resolved with a dose of IV metoprolol -Will monitor on tele -Continue home metoprolol -Continue warfarin 3. COPD Patient does not appear in an acute exacerbation at this time, but had some wheezes on exam -Duonebs prn -Continue home meds 4. HTN -Continue home meds 5. Hypothyroidism -Continue home meds 6. CKDIII Will continue fluid restriction and monitor -Avoid nephrotoxic agents <Oanh Domínguez - Last Filed: 05/09/17 09:14> Attending Addendum - Attending Addendum Date/Time: 05/09/17 3691 I personally evaluated the patient and discussed the management with Dr. Domínguez. I agree with the History, Examination, Assessment and Plan documented above with any addition or exceptions noted below. <Toi Harrington - Last Filed: 05/09/17 15:44>
[2017-05-09] MEDS: Cyanocobalamin (Vitamin B-12) 1,000 MCG TAB PO SCH (09:45)
[2017-05-09] MEDS: Potassium Chloride 20 MEQ TAB PO SCH ×2 (09:45→22:17)
[2017-05-09] MEDS: Folic Acid 1 MG TAB PO SCH (09:45)
[2017-05-09] MEDS: Metoprolol Tartrate 50 MG TAB PO SCH ×2 (09:46→22:17)
[2017-05-09] MEDS: Tamsulosin HCl 0.4 MG CAP PO SCH (09:46)
[2017-05-09] MEDS: Furosemide 100 MG/10 ML VIAL SLOW IVP SCH (13:43)
[2017-05-09] MEDS: Warfarin Sodium 2 MG TAB PO SCH (16:58)
--- NOTE | 2017-05-09 22:51 | CON ---
DATE OF CONSULTATION: 05/09/2017 CARDIOLOGY CONSULTATION REASON FOR CONSULTATION: Heart failure. HISTORY OF PRESENT ILLNESS: Mr. Sharma is a pleasant 77-year-old white gentleman, who comes to the hospital for increased swelling and increased shortness of breath. He has a history of diastolic hea rt failure with mitral valve prolapse and severe mitral valve regurgitation as well as severe tricusp id regurgitation with elevated pressures in the past. He had a transesophageal echo recently to asse ss for possible repair, posterior leaflet is prolapsing and with severe MR. Plan was to possibly sen d for mitral valve repair. He states he was compliant with his fluid restriction as well as his Lasi x, but he started to swell up; his lower extremities as well as the scrotum became very swollen, so h e decided to come in as he was starting to get short of breath as well. PAST MEDICAL HISTORY: 1. Diastolic heart failure. 2. Mitral valve prolapse with severe MR, likely cause of his heart failure. 3. Chronic atrial fibrillation, on chronic anticoagulation. 4. Chronic obstructive pulmonary disease. 5. Hypertension. 6. History of C. diff colitis recently. 7. Hypothyroidism. 8. Left index finger osteomyelitis recently. PAST SURGICAL HISTORY: 1. Appendectomy. 2. Tonsillectomy. 3. Cataract surgery. 4. Left index finger I and D. FAMILY HISTORY: Noncontributory. SOCIAL HISTORY: Quit tobacco several years ago. No alcohol or drug use. REVIEW OF SYSTEMS: A 12 point review of systems was done and is all negative unless stated in the hi story of present illness. MEDICATIONS: 1. Coumadin. 2. Flomax. 3. Potassium chloride 20 mEq twice a day. 4. Protonix. 5. Metoprolol tartrate 50 mg b.i.d. 6. Synthroid 25 mcg a day. 7. DuoNebs. 8. Robitussin-DM. 9. Lasix 40 mg b.i.d. 10. Folic acid. 11. Vitamin B12. 12. Pulmicort. 13. Dulcolax. 14. Aspirin 81 daily. 15. Tylenol extra strength p.r.n. ALLERGIES: PENICILLIN. PHYSICAL EXAMINATION: VITAL SIGNS: Temperature 97.4, pulse 95, respiration rate 17, satting 99% on room air, blood pressur e 114/63. GENERAL: Awake, alert, and oriented x3, in no distress. HEENT: Normocephalic, atraumatic. NECK: Supple. LUNGS: Have mild crackles. CARDIOVASCULAR: S1, S2, no S3, S4. There is a grade 3/6 holosystolic murmur at the apex. There is a second murmur systolic at the fourth intercostal space right parasternal area. ABDOMEN: Prominent. EXTREMITIES: 4+ edema. SKIN: Warm and dry. LABORATORY WORK: Reviewed. CBC with a white count of 8.1, hemoglobin of 11, hematocrit of 36, and p latelet count of 256. Coags: INR is therapeutic at 2.4 and 2.0. Chemistry with a creatinine of 1.7 4 and BUN of 30, this is a little higher than his baseline; on the 3rd, it was 1.46. BNP is 906. Tr oponin has been negative x1. Imaging: Telemetry was reviewed, he had a 4 to 5 beat run of nonsustained VT and this is slow VT. Previous echocardiograms have been reviewed. ASSESSMENT AND PLAN: 1. Nonsustained ventricular tachycardia: Very slow ventricular tachycardia asymptomatic, currently continue beta natalia only. He will need a heart catheterization if valve repair is ever going to be attempted. We will probably do this eventually not at this time given his congestive heart failure at that time. 2. Acute on chronic diastolic heart failure. Most likely related to his level of mitral regurgitati on and level of tricuspid regurgitation from his chronic obstructive pulmonary disease and pulmonary hypertension. He may not be a great candidate for surgery given all these situations; however, at th is point, we will continue diuresis to make him feel better, try to maintain his electrolytes which w ere replaced. Potassium has been above 4 all the time, which is appropriate. 3. Chronic obstructive pulmonary disease. 4. Chronic atrial fibrillation, on chronic anticoagulation. Rate control at this time. Thank you for letting us participate in the care of your patient. We will follow.
[2017-05-10 05:25] LABS: INR-International Normal Ratio 2.2; Prothrombin Time 25.4 SEC (12.0-14.7)
[2017-05-10 05:53] LABS: Anion Gap 12 mmol/L (10-20); BUN (Urea Nitrogen) 30 mg/dL (8.4-25.7); Calc. Creatinine Clearance 42 mL/min (70-130); Carbon Dioxide 31 mmol/L (23-31); Chloride 99 mmol/L (98-107); Estimated GFR-MDRD 44; Glucose 118 mg/dL (83-110); Sodium 138 mmol/L (136-145)
[2017-05-10 06:21] LABS: #Eosinphils 0.2 thou/uL (0.0-0.7); #Lymphocytes 1.3 thou/uL (1.20-3.40); #Neutrophils 5.2 thou/uL (1.40-6.50); %Basophils 0.4 % (0.0-1.0); %Eosinophils 2.1 % (0.0-10.0); %Lymphocytes 16.8 % (21.0-51.0); %Monocytes 12.8 % (0.0-10.0); Hemoglobin 11.2 g/dL (14.0-18.0); Mean Corpuscular HGB CONC 31.9 g/dL (32.0-36.0); Mean Corpuscular Hemoglobin 32.3 pg (27.0-31.0); Mean Platelet Volume 6.9 fL (7.4-10.4); Platelet Count 226 thou/uL (130-400); RBC Distribution Width 16.5 % (11.5-14.5); Red Blood Cell (RBC) Count 3.46 mill/uL (4.70-6.10); White Blood Cell (WBC) Count 7.7 thou/uL (4.8-10.8)
[2017-05-10] MEDS: Furosemide 100 MG/10 ML VIAL SLOW IVP SCH ×2 (06:42→15:45)
[2017-05-10] MEDS: Levothyroxine Sodium 25 MCG TAB PO SCH (06:43)
[2017-05-10] MEDS: Budesonide 0.5 MG/2 ML NEB NEB SCH (07:23)
--- NOTE | 2017-05-10 08:05 | PDOC.FM ---
- Subjective Subjective: Patient is feeling much better this AM. He reports that his swelling has continued to improve. He feels still SOB when he exerts himself, but reports that it is pretty much at his baseline. He has been up moving around frequently. He denies any new chest pain or palpitations. - Objective MAR Reviewed: Yes Vital Signs & Weight: Vital Signs (12 hours) Temp Pulse Resp BP Pulse Ox 05/10/17 07:25 100 18 94 L 05/10/17 07:23 100 18 94 L 05/10/17 06:40 95 110/65 05/10/17 03:58 97.6 F 98 18 94/56 L 100 05/09/17 23:45 83 16 92/65 100 05/09/17 22:10 97.7 F 95 16 101/60 100 Weight Admit Weight 71.668 kg Weight 74.253 kg I&O: 05/09/17 05/10/17 05/11/17 06:59 06:59 06:59 Intake Total 1540 1460 Output Total 1100 3045 Balance 440 1585 Result Diagrams: 05/10/17 04:53 05/10/17 04:53 <Oanh Domínguez - Last Filed: 05/10/17 12:02> - Objective Vital Signs & Weight: Vital Signs (12 hours) Temp Pulse Pulse Pulse Resp BP BP 05/10/17 12:00 97.8 F 92 18 05/10/17 09:14 107 H 104 H 101/56 L 103/58 L 05/10/17 08:00 97.4 F L 94 18 05/10/17 07:25 100 18 05/10/17 07:23 100 18 05/10/17 06:40 95 BP BP Pulse Ox 05/10/17 12:00 121/64 98 05/10/17 09:14 05/10/17 08:00 107/60 98 05/10/17 07:25 94 L 05/10/17 07:23 94 L 05/10/17 06:40 110/65 Weight Admit Weight 71.668 kg Weight 74.253 kg I&O: 05/09/17 05/10/17 05/11/17 06:59 06:59 06:59 Intake Total 1540 1460 840 Output Total 1100 3045 Balance 440 1584 840 Result Diagrams: 05/10/17 04:53 05/10/17 04:53 <LenToi A - Last Filed: 05/10/17 16:44> Phys Exam - Physical Examination Constitutional: NAD HEENT: moist MMs Respiratory: no wheezing, no rales, no rhonchi, clear to auscultation bilateral Cardiovascular: RRR, no significant murmur, no rub Gastrointestinal: soft, non-tender, no distention, positive bowel sounds Musculoskeletal: pulses present, edema present (2+ BLE up to the knees, 1+ BLE from the knees to the mid thigh, 1+ L arm edema) Neurological: non-focal, moves all 4 limbs Psychiatric: normal affect, A&O x 3 Skin: normal turgor, cap refill <2 seconds <Oanh Domínguez - Last Filed: 05/10/17 12:02> Dx/Plan (1) Acute on chronic heart failure with normal ejection fraction Code(s): I50.33 - ACUTE ON CHRONIC DIASTOLIC (CONGESTIVE) HEART FAILURE Status : Acute (2) COPD (chronic obstructive pulmonary disease) Status: Chronic QualifierTitle: COPD type: COPD with acute exacerbation Qualified Code(s) : J44.1 - Chronic obstructive pulmonary disease with (acute) exacerbation (3) Chronic a-fib Code(s): I48.2 - CHRONIC ATRIAL FIBRILLATION Status: Chronic (4) Chronic anticoagulation Code(s): Z79.01 - PRISON (CURRENT) USE OF ANTICOAGULANTS Status: Chronic (5) Pulmonary hypertension Code(s): I27.20 - PULMONARY HYPERTENSION, UNSPECIFIED Status: Chronic (6) Hypertension Code(s): I10 - ESSENTIAL (PRIMARY) HYPERTENSION Status: Acute QualifierTitle: Hypertension type: essential hypertension Qualified Code( s): I10 - Essential (primary) hypertension (7) CKD (chronic kidney disease) stage 3, GFR 30-59 ml/min Code(s): N18.3 - CHRONIC KIDNEY DISEASE, STAGE 3 (MODERATE) Status: Chronic (8) Mitral regurgitation Status: Acute QualifierTitle: Cardiac valve disease etiology: nonrheumatic Qualified Code(s): I34.0 - Nonrheumatic mitral (valve) insufficiency - Plan Plan: 1. Acute on Chronic HFpEF Exacerbation Patient had GLADYS done on 05/[address] Lord that had EF of 60-65%. Significantly fluid overloaded on exam. BNP elevated. I spoke to Dr. Mayorga who is the patient's PCP and he stated that the patient is very responsive to fluids and to diuretics and can get very easily overloaded. I/O: Net -1235 in past 24 hours, Net -1290 since admission -Lasix 60mg IV BID s/p one dose of metolazone on 05/09 -Will transition to PO lasix today -Strict I/O's -Daily Weights -Fluid restrict to 1500mL -No need for a repeat Echo as the patient just had one -Cardiology has been consulted, appreciate recs -Will d/c home as pt is back at baseline breathing status and has diuresed well. Pt has close f/u with Dr. Mayorga with an appt scheduled for 05/12/17. 2. Chronic a-fib on chronic anticoagulation Patient was initially in RVR, but this resolved with a dose of IV metoprolol -Will monitor on tele -Continue home metoprolol -Continue warfarin 3. COPD Patient does not appear in an acute exacerbation at this time, but had some wheezes on exam on initial presentation -Duonebs prn -Continue home meds 4. HTN -Continue home meds 5. Hypothyroidism -Continue home meds 6. CKDIII Will continue fluid restriction and monitor -Avoid nephrotoxic agents Dispo: d/c home today with f/u with Dr. Mayorga on 05/12/17 <Oanh Domínguez - Last Filed: 05/10/17 12:02> Attending Addendum - Attending Addendum Date/Time: 05/10/17 2064 I personally evaluated the patient and discussed the management with Dr. Domínguez. I agree with the History, Examination, Assessment and Plan documented above with any addition or exceptions noted below. Cards has evaluated adn deferred action until later. Patient reports feeling at baseline. No CP or SOB. Stable for discharge. <Toi Harrington - Last Filed: 05/10/17 16:44>
[2017-05-10] MEDS: Potassium Chloride 20 MEQ TAB PO SCH (10:06)
[2017-05-10] MEDS: Folic Acid 1 MG TAB PO SCH (10:06)
[2017-05-10] MEDS: Tamsulosin HCl 0.4 MG CAP PO SCH (10:06)
[2017-05-10] MEDS: Metoprolol Tartrate 50 MG TAB PO SCH (10:07)
[2017-05-10] MEDS: Cyanocobalamin (Vitamin B-12) 1,000 MCG TAB PO SCH (10:07)
[2017-05-10 13:08] VITALS: BP 121/64; TEMP 97.8
--- NOTE | 2017-05-11 13:35 | DIS-2 ---
DATE OF ADMISSION: 05/07/2017 DATE OF DISCHARGE: 05/10/2017 ADMITTING ATTENDING: Antoine Berrios MD DISCHARGE ATTENDING: Toi Harrington M.D. ADMITTING RESIDENT: Oanh Domínguez MD DISCHARGE RESIDENT: Oanh Domínguez MD CONSULTATION: Dr. Massey with Cardiology. PROCEDURES: None. PRIMARY DIAGNOSIS: Acute on chronic congestive heart failure exacerbation. SECONDARY DIAGNOSES: 1. Chronic atrial fibrillation with chronic anticoagulation. 2. Heart failure with preserved ejection fraction. 3. Chronic obstructive pulmonary disease. 4. Hypertension. 5. Hypothyroidism. 6. Chronic kidney disease, stage 3. DISCHARGE MEDICATIONS: 1. Acetaminophen 500 mg p.o. q.6 hours p.r.n. pain. 2. Aspirin 81 mg p.o. q.a.m. 3. Dulcolax 10 mg p.o. daily p.r.n. constipation. 4. Pulmicort 0.5 mg inhaled b.i.d. 5. Vitamin B12 of 1000 mcg p.o. q.a.m. 6. Folic acid 1 mg p.o. q.a.m. 7. Lasix 40 mg p.o. daily. 8. Robitussin-DM 15 mL p.o. q.4 hours p.r.n. cough. 9. DuoNeb 3 mL nebs q.6 hours p.r.n. 10. Synthroid 25 mcg p.o. daily. 11. Metoprolol tartrate 50 mg p.o. b.i.d. 12. Pantoprazole 40 mg p.o. q.a.m. 13. Potassium chloride 20 mEq p.o. q.12 hours. 14. Tamsulosin 0.4 mg p.o. daily. 15. Warfarin 4 mg p.o. at 1700. DISCONTINUED MEDICATIONS: None. HISTORY OF PRESENT ILLNESS AND HOSPITAL COURSE: This is a 77-year-old male with a past medical histo ry of CHF, mitral valve prolapse and severe mitral regurgitation, who presented to the ER with signif icant lower extremity swelling and groin swelling 2 days after having a GLADYS done to evaluate the stat us of his mitral valve. The patient reported symptoms including orthopnea, paroxysmal nocturnal dysp dionna and dyspnea on exertion. The patient had an elevated BNP to 906, which is higher than his previo us ones. The patient has 3+ pitting edema up to his thighs bilaterally and pitting edema of the groi n as well as 1+ pitting edema of the left upper extremity. The patient was started on IV Lasix and o n the first day was diuresed with net negative about half a liter; however, on the second day, he was about net neutral and so his Lasix was increased and he was given one dose of metolazone. At this p oint, the patient diuresed pretty significantly, swelling had improved and his ins and outs showed th at his diuresis had improved as well. The patient's shortness of breath at this point was back to hi s baseline. Dr. Lord is the patient's projector operator and he was consulted to come see the patient an d agreed with the course of action. The patient will at some point require a cardiac catheterization prior to his valve repair if that is ever going to be attempted; however, this will not be during th is hospitalization as the patient is in acute CHF exacerbation at this time. The patient's electroly lyubov remained within normal limits throughout his entire hospitalization and his kidney function remai radha stable. DISPOSITION: Stable. DISCHARGE INSTRUCTIONS: 1. Location: Home. 2. Diet: Fluid restriction to less than 1500 mL, heart healthy and low sodium. 3. Activity: As tolerated. 4. Followup: Follow up with Dr. Lord within 2 to [address] Mayorga within 2 to 3 days .
== END 2017-05-10 17:00 | disposition home or self-care (01) | DRG 291 ==
LOC: ERS 11:40 → 2NO 13:35
PROVIDERS: ADMIT Student in an Organized Health Care Education/Training Program; ATTEND Student in an Organized Health Care Education/Training Program
DX: I13.0 Hypertensive heart and chronic kidney disease with heart failure and stage 1 through stage 4 chronic kidney disease, or unspecified chronic kidney disease (principal); I50.33 Acute on chronic diastolic (congestive) heart failure; I47.2 Ventricular tachycardia; I27.20 Pulmonary hypertension, unspecified; E11.22 Type 2 diabetes mellitus with diabetic chronic kidney disease; J44.1 Chronic obstructive pulmonary disease with (acute) exacerbation; I48.2 Chronic atrial fibrillation; I34.0 Nonrheumatic mitral (valve) insufficiency; I34.1 Nonrheumatic mitral (valve) prolapse; E03.9 Hypothyroidism, unspecified; N18.3 Chronic kidney disease, stage 3 (moderate); Z87.891 Personal history of nicotine dependence; Z88.0 Allergy status to penicillin; Z79.82 Long term (current) use of aspirin; Z79.01 Long term (current) use of anticoagulants; Z79.899 Other long term (current) drug therapy
CPT/HCPCS: 36415; 71045; 80048; 80053; 82553; 83690; 83735; 83880; 84484; 85025; 85610; 85730; 93005; 93010; 93312; 93798; 94640; 96374; 96375; G8978-GP-CI; G8979-GP-CI; G8980-GP-CI; J1940; J2001; J2704; J7620; J7626

== ENCOUNTER 2017-06-12 13:59 | Inpatient (IN) | payer MEDICARE ==
[2017-06-12 14:47] LABS: Bilirubin Negative (Negative); Blood, Urine Negative (Negative); Clarity CLEAR (Clear); Glucose, Urine (Dipstick) Negative (Negative); Leukocyte Negative (Negative); Nitrite Negative (Negative); Protein, Urine (Dipstick) Negative (Neg-Trace); Specific Gravity, Urine 1.007 (1.002-1.036); Urobilinogen 0.2 mg/dL (0.2-1.0); pH, Urine 7.5 (5.0-9.0)
[2017-06-12] MEDS ORDERED: Meropenem 1 GM in Sodium Chloride 0.9% 100 ML IVPB ONE (15:00)
[2017-06-12 15:48] LABS: Troponin I Less than 0.010 ng/mL (< 0.028)
--- NOTE | 2017-06-12 16:51 | PDOC.FPRHP ---
- History of Present Illness Chief Complaint: LE swelling, scrotal swelling History of Present Illness: 77 yo M w/ PMH of HFpEF, recent b/l thigh cellulitis, copd, a-fib, hypothyroid, bph who presents w/ cc of b/l LE edema, progressively worsening over last 2 days and 2 day h/o scrotal edema. Pt denies cp, sob, nvdc, fever, chills, sweats. Was recently hopitalized for the same issue and is scheduled to have a valve replacement and possibly stents by cv surg and cards, respectively soon. On d/c from last hospitalization pt was sent to rehab and treated for b/l thigh cellulitis. He just recently finished a course of clindamycin. ED Course: Given vanc and merrem - Allergies/Adverse Reactions Allergies Allergy/AdvReac Type Severity Reaction Status Date / Time Penicillins Allergy Verified 05/04/17 08:54 - Home Medications Medication Instructions Recorded Confirmed Type Aspirin [Aspirin Chewable Tablet] 81 mg PO QAM 01/06/17 06/12/17 History Metoprolol Tartrate 50 mg PO BID 01/06/17 06/12/17 History Ipratropium/Albuterol Sulfate 3 ml NEB [id number] #30 neb 02/04/17 06/12/17 Rx [DuoNeb] Bisacodyl [Dulcolax] 10 mg PO DAILYPRN PRN 03/11/17 06/12/17 History Guaifenesin DM 100-10 [Robitussin 15 ml PO Q4H PRN 03/11/17 06/12/17 History DM] Budesonide [Pulmicort] 0.5 mg IH BID 03/25/17 06/12/17 History Levothyroxine Sodium [Synthroid] 25 mcg PO 0600 03/25/17 06/12/17 History Potassium Chloride 20 meq PO Q12HR udcup 04/25/17 06/12/17 Rx Tamsulosin HCl [Flomax] 0.4 mg PO DAILY cap 04/25/17 06/12/17 Rx Warfarin Sodium [Coumadin] 4 mg PO 1700 tab 04/25/17 06/12/17 Rx Cyanocobalamin (Vitamin B-12) 1,000 mcg PO QAM 05/04/17 06/12/17 History [Vitamin B-12] Folic Acid [Folvite] 1 mg PO QAM 05/04/17 06/12/17 History Pantoprazole [Protonix] 40 mg PO QAM 05/04/17 06/12/17 History Acetaminophen [Tylenol Extra 500 mg PO Q6H PRN 05/05/17 06/12/17 History Strength] Furosemide [Lasix] 40 mg PO DAILY #0 05/10/17 06/12/17 Rx - History PMHx:copd, HFpEF, pulm htn, valvular disease, a-fib, DMII, hypothyroid, BPH, CAD PSHx: Prior cardiac cath w/o stenting FHx: NA Social: Prior smoker, non drinker, no drugs - Review of Systems General: denies: fever/chills, weight/appetite/sleep changes, fatigue ENT: denies: nasal congestion, rhinorrhea Respiratory: denies: cough, congestion, shortness of breath, exercise intolerance Cardiovascular: reports: edema. denies: chest pain, palpitation, paroxysmal nocturnal dyspnea, orthopnea Gastrointestinal: denies: nausea, vomiting, diarrhea, constipation, abdominal pain Genitourinary: reports: other (scrotal swelling) Skin: reports: rashes, lesions Musculoskeletal: reports: pain, swelling. denies: tenderness, stiffness, arthritis/arthralgias Neurological: denies: numbness, syncope - Vital signs BP: 116/66 HR: 84-94 RR: 14-16 Tmax: 97.8 Pox: 99% on RA Wt: 63 Kg - Physical Exam Constitutional: NAD, awake, alert and oriented, well developed HEENT: normocephalic and atraumatic, PERRLA, EOMI, conjunctiva clear, grossly normal vision, grossly normal hearing, MMM Neck: supple, trachea midline, other (jvd) Heart: normal S1/S2, pulses present, other (irregular rhythm, 2-3/6 ERIK, 3+ pitting edema to above thighs) Lungs: CTAB, no respiratory distress, good air movement, no rales/rhonchi, no wheezing, no retractions Abdomen: soft, non-tender, bowel sounds present, no masses/distention Musculoskeletal: normal structure, ROM grossly normal Neurological: no focal deficit Skin: capillary refill <2 seconds, other (erythematous b/l thighs) FMR H&P: Results - Labs Lab results: Lactic Acid 1.9 mmol/L (0.5-2.2) 06/12/17 15:02 B-Natriuretic Peptide 1132.6 pg/mL (0-100) H 06/12/17 15:02 Urine Ketones Negative mg/dL (Negative) 06/12/17 14:41 Urine Blood Negative (Negative) 06/12/17 14:41 Urine Nitrite Negative (Negative) 06/12/17 14:41 Ur Leukocyte Esterase Negative (Negative) 06/12/17 14:41 - EKG Interpretation EKG: a-fib, controlled rate - Radiology Interpretation Chest x-ray Status: report reviewed by me Additional comment: findings consistent with CHF FMR H&P: A/P - Problem List (1) Acute on chronic heart failure with normal ejection fraction Current Visit: No Status: Acute Code(s): I50.33 - ACUTE ON CHRONIC DIASTOLIC (CONGESTIVE) HEART FAILURE (2) Fluid overload Current Visit: No Status: Resolved Code(s): E87.70 - FLUID OVERLOAD, UNSPECIFIED (3) CKD (chronic kidney disease) stage 3, GFR 30-59 ml/min Current Visit: No Status: Chronic Code(s): N18.3 - CHRONIC KIDNEY DISEASE, STAGE 3 (MODERATE) (4) COPD (chronic obstructive pulmonary disease) Current Visit: No Status: Chronic Qualifiers: COPD type: COPD with acute exacerbation Qualified Code(s): J44.1 - Chronic obstructive pulmonary disease with (acute) exacerbation Comment: resolving (5) Chronic a-fib Current Visit: No Status: Chronic Code(s): I48.2 - CHRONIC ATRIAL FIBRILLATION Comment: rate controlled (6) Chronic anticoagulation Current Visit: No Status: Chronic Code(s): Z79.01 - MANAGER INTENSIVE CARE (CURRENT) USE OF ANTICOAGULANTS (7) Hypothyroidism Current Visit: No Status: Chronic Code(s): E03.9 - HYPOTHYROIDISM, UNSPECIFIED Qualifiers: Hypothyroidism type: acquired Qualified Code(s): E03.9 - Hypothyroidism, unspecified (8) Cellulitis and abscess of lower extremity Current Visit: No Status: Resolved Code(s): L03.119 - CELLULITIS OF UNSPECIFIED PART OF LIMB; L02.419 - CUTANEOUS ABSCESS OF LIMB, UNSPECIFIED - Plan 1)Acute on chronic chf: -no evidence of respiratory deficit -fluid overloaded LE -continue theresa IV lasix + metolazone -HH diet w/ salt and fluid restrictions - am bmp, cbc -monitor Is/Os -daily weights 2)fluid overload -see #1 3) Acute on chronic ckd -daily BMPs -Monitor Is/Os -daily weights 4)COPD home meds 5) Afib home meds 6) Anticoagulation: Home meds 7)Hypothyroidism home meds 8) Cellulitis; resolved -likely stasis dermatitis 2/2 chronic edema and swelling in addition to acute worsening of swelling -will diurese -daily BMP, CBC 9)PPX: SCDs, Pepcid 10) Code status: -spoke with pt regarding code status; wishes to be full code Disposition/LOS: stable, >/=2 days FMR H&P: Upper Level - Pertinent history 77 yo CM with PMHx A. fib, HFpEF, CAD, mitral valve prolapse, COPD, CKD3, recent bilateral thigh cellulitis, and recent SNF stay presented to outside ED for 2 day hx of worsening BLE edema. Pt has hx of worsening lower extremity swelling over last 1-2 yrs with discovery of severe mitral valve prolapse, diastolic heart dysfunction, and stenotic vessels needing stents per patient. Pt was hospitalized for worsening fluid overload last month with one week stay at SNF following. Was diagnosed with bilateral leg cellulitis during this time and treated with 10 days of clindamycin; finished 5 days ago. He states dietary control is difficult for him at home due to using lots of salt. He also appears to be taking just one Lasix daily. Endorses mild pain in both legs around areas of redness. States redness improved after antibiotics last month. Given vanc and meropenem in ED. Admitted to telemetry with expected 2 day stay. - Pertinent findings Gen: NAD, A&Ox4 Heart: irregular rhythm, 2/6 systolic murmur loudest at apex, normal S1/S2 Lungs: fine rales at bases, no rhonchi/wheezing, no increased WOB Abd: soft, NT/ND, BS+ Ext: 4+ BLE pitting edema to hips; large scrotal edema Skin: erythematous area over L anterior knee tracking proximally over medial thigh and larger erythematous area on R leg over majority of medial and anterior thigh; both areas mildly tender to touch with no increased warmth, no fluctuance or induration, small 0.2 cm scab over L erythematous area - Plan Date/Time: 06/12/17 1646 1. Acute on chronic HFpEF. Grossly fluid overloaded with BNP 1132 and evidence of pulmonary vasc congestion. Heavy IV Lasix with addition of metolazone as last months admission required this to achieve appropriate diuresis. Will not repeat ECHO as GLADYS performed 05/05/[address] Lord showing EF 60-65% with severely dilated LA/RA, mildly reduced RV fxn, mod MVP with severe MR, mod TR. Per pt and records, there is goal for mitral valve replacement in [place] as well as either heart cath or stenting of diseased vessels already known per pt. Will consult Dr. Lord in AM to follow with hospitalization. Trend trops. Admit to tele. 2. Acute on chronic CKD. Repeat BMPs to monitor Cr. Need to continue heavy diuresis at this time. 3. Atrial fibrillation. On anticoagulation. Continue. Currently rate controlled. 4. COPD. Appears stable. No breathing issues currently. 5. Venous stasis dermatitis vs cellulitis. With significant swelling and bilateral nature of erythema after recent course of abx, plan to diurese and see if improves. No WBC count and no obvious lesions. Hx of recent C. diff infection as well which further encourages antibacterial stewardship. 6. Hypothyroidism. Home meds. I, Damon Payton, have evaluated this patient and agree with findings/plan as outlined by internet ecommerce specialist resident. Pertinent changes/additions are listed here. Attending Addendum - Attending Addendum Date/Time: 06/12/17 5237 I personally evaluated the patient and discussed the management with team. I agree with and repeated the History, Examination, Assessment and Plan documented above with any addition or exceptions noted below. Markedly hypervolemic. Diurese. May d/w cards in AM. I do not appreciate significant signs or symptoms of lower extremity cellulitis. No induration, TTP, warmth. Very mild erythema. Will observe and diurese.
[2017-06-12] MEDS ORDERED: Ondansetron ODT 4 MG TAB SL PRN (19:09)
[2017-06-12] MEDS ORDERED: Ondansetron PF 4 MG/2 ML Vial IVP PRN (19:09)
[2017-06-12] MEDS ORDERED: Ondansetron ODT 4 MG TAB PO PRN (19:37)
[2017-06-12] MEDS ORDERED: Metolazone 5 MG TAB PO SCH (19:37)
[2017-06-12] MEDS ORDERED: Furosemide 40 MG/4 ML VIAL SLOW IVP SCH (19:37)
[2017-06-12] MEDS ORDERED: Dextrose 50% Abboject 50 ML SYRINGE SLOW IVP PRN (19:37)
[2017-06-12] MEDS ORDERED: Bisacodyl 5 MG TAB PO PRN (19:37)
[2017-06-12] MEDS ORDERED: HumaLOG 300 UNITS/3 ML VIAL SC PRN ×2 (19:37)
[2017-06-12] MEDS ORDERED: Dextrose 5% in Water 1,000 ML IV PRN (19:37)
[2017-06-12 19:42] VITALS: BMI 23.0
[2017-06-12] MEDS ORDERED: Furosemide 40 MG TAB PO SCH (20:00)
[2017-06-12] MEDS ORDERED: Aspirin 325 MG TAB PO SCH (20:00)
[2017-06-12 20:19] LABS: INR-International Normal Ratio 2.5
[2017-06-12] MEDS: Metoprolol Tartrate 50 MG TAB PO SCH (20:48)
[2017-06-12] MEDS: Potassium Chloride 20 MEQ TAB PO SCH (20:48)
[2017-06-12] MEDS: Budesonide 0.5 MG/2 ML NEB NEB SCH (23:08)
[2017-06-13] MEDS ORDERED: Vancomycin HCl 1 GM in Premix Bag 1 BAG IVPB SCH (03:00)
[2017-06-13] MEDS ORDERED: Meropenem 1 GM in Sodium Chloride 0.9% 100 ML IVPB SCH (05:00)
[2017-06-13 05:15] LABS: Anion Gap 10 mmol/L (10-20); BUN (Urea Nitrogen) 33 mg/dL (8.4-25.7); Calc. Creatinine Clearance 29 mL/min (70-130); Carbon Dioxide 31 mmol/L (23-31); Chloride 99 mmol/L (98-107); Estimated GFR-MDRD 33; Glucose 100 mg/dL (83-110); Potassium 4.4 mmol/L (3.5-5.1); Sodium 136 mmol/L (136-145)
[2017-06-13 05:25] LABS: Band 2 % (5-11); Eosinophils 3 % (0-10); Lymphocytes 22 % (21-51); MDiff Complete? YES; Mean Corpuscular HGB CONC 32.4 g/dL (32.0-36.0); Mean Corpuscular Hemoglobin 32.1 pg (27.0-31.0); Mean Platelet Volume 6.3 fL (7.4-10.4); Monocytes 5 % (0-10); Neutrophil 68 % (42-75); PLT Morphology Comment Appears Adequate; Platelet Count 322 thou/uL (130-400); RBC Distribution Width 15.5 % (11.5-14.5); Red Blood Cell (RBC) Count 3.43 mill/uL (4.70-6.10); White Blood Cell (WBC) Count 8.2 thou/uL (4.8-10.8)
[2017-06-13] MEDS: Levothyroxine Sodium 25 MCG TAB PO SCH (05:35)
[2017-06-13] MEDS: Furosemide 40 MG/4 ML VIAL SLOW IVP SCH ×2 (05:35→14:43)
--- NOTE | 2017-06-13 06:04 | PDOC.FM ---
- Subjective Subjective: Pt reports doing well. Denies any chest pain or acute SOB. Denies any fever or chills. Reports feeling a little weak. Says he needs to get up and walk. Denies any acute events overnight - Objective MAR Reviewed: Yes Vital Signs & Weight: Vital Signs (12 hours) Temp Pulse Resp BP Pulse Ox 06/13/17 04:00 97.8 F 63 18 113/57 L 96 06/12/17 23:29 97.5 F L 85 16 128/79 99 06/12/17 23:09 94 L 06/12/17 23:08 94 L 06/12/17 20:00 97.5 F L 85 16 98 06/12/17 19:05 97.5 F L 110 H 20 120/84 97 Weight Weight 68.629 kg Result Diagrams: 06/13/17 04:54 06/13/17 04:54 EKG Reviewed by me: Yes Radiology Reviewed by me: Yes <Lorne Walters - Last Filed: 06/13/17 08:24> - Objective Vital Signs & Weight: Vital Signs (12 hours) Temp Pulse Pulse Pulse Resp BP BP 06/13/17 16:00 97 F L 92 16 06/13/17 12:00 97.6 F 95 16 06/13/17 10:20 101 H 111 H 114/65 107/65 06/13/17 08:10 98 F 102 H 18 06/13/17 08:07 98 F 102 H 18 06/13/17 07:05 90 14 BP Pulse Ox 06/13/17 16:00 106/56 L 96 06/13/17 12:00 101/65 95 06/13/17 10:20 06/13/17 08:10 100 06/13/17 08:07 113/57 L 100 06/13/17 07:05 Weight Weight 68.311 kg I&O: 06/12/17 06/13/17 06/14/17 06:59 06:59 06:59 Intake Total 420 480 Output Total 1400 1800 Balance -980 -1320 Result Diagrams: 06/13/17 04:54 06/13/17 04:54 <Thalia Mustafa - Last Filed: 06/13/17 19:03> Phys Exam - Physical Examination Constitutional: NAD HEENT: PERRLA, moist MMs Neck: no nodes JVD present up to jaw line some decreased breath movment. Scattered rales Cardiovascular: RRR, no significant murmur, no rub Gastrointestinal: soft, non-tender, no distention, positive bowel sounds Musculoskeletal: edema present +4 up to thighs. Scrotum and penis swollen as well Neurological: normal sensation, moves all 4 limbs Lymphatic: no nodes Psychiatric: normal affect, A&O x 3 Skin: no rash, normal turgor, cap refill <2 seconds <Lorne Walters - Last Filed: 06/13/17 08:24> Dx/Plan (1) Acute kidney injury Code(s): N17.9 - ACUTE KIDNEY FAILURE, UNSPECIFIED Status: Acute (2) Diabetes mellitus Code(s): E11.9 - TYPE 2 DIABETES MELLITUS WITHOUT COMPLICATIONS Status: Acute (3) Acute on chronic heart failure with normal ejection fraction Code(s): I50.33 - ACUTE ON CHRONIC DIASTOLIC (CONGESTIVE) HEART FAILURE Status : Acute (4) Hypertension Code(s): I10 - ESSENTIAL (PRIMARY) HYPERTENSION Status: Acute QualifierTitle: Hypertension type: essential hypertension Qualified Code( s): I10 - Essential (primary) hypertension (5) CKD (chronic kidney disease) stage 3, GFR 30-59 ml/min Code(s): N18.3 - CHRONIC KIDNEY DISEASE, STAGE 3 (MODERATE) Status: Chronic (6) COPD (chronic obstructive pulmonary disease) Status: Chronic QualifierTitle: COPD type: COPD with acute exacerbation Qualified Code(s) : J44.1 - Chronic obstructive pulmonary disease with (acute) exacerbation (7) Chronic a-fib Code(s): I48.2 - CHRONIC ATRIAL FIBRILLATION Status: Chronic (8) Hypothyroidism Code(s): E03.9 - HYPOTHYROIDISM, UNSPECIFIED Status: Chronic QualifierTitle: Hypothyroidism type: acquired Qualified Code(s): E03.9 - Hypothyroidism, unspecified (9) Cellulitis and abscess of lower extremity Code(s): L03.119 - CELLULITIS OF UNSPECIFIED PART OF LIMB; L02.419 - CUTANEOUS ABSCESS OF LIMB, UNSPECIFIED Status: Resolved (10) Fluid overload Code(s): E87.70 - FLUID OVERLOAD, UNSPECIFIED Status: Resolved - Plan Plan: 1)Acute on chronic chf: -no evidence of respiratory deficit -fluid overloaded LE -continue theresa IV lasix + metolazone -HH diet w/ salt and fluid restrictions - am bmp, cbc -monitor Is/Os -daily weights -Will consult Risa his pain medicine physician today 2)fluid overload -see #1 3) Acute on chronic ckd -daily BMPs -Monitor Is/Os -daily weights -Cr elevated from past visits likely secondary to fluid overloaded. will continue to monitor. Continue diuresis 4)COPD home meds 5) Afib home meds -tele monitoring 6) Anticoagulation: Home meds 7)Hypothyroidism home meds 8) Cellulitis; resolved -likely stasis dermatitis 2/2 chronic edema and swelling in addition to acute worsening of swelling -will diurese -daily BMP, CBC -No fevers noted. 9)PPX: SCDs, Pepcid <Lorne Walters - Last Filed: 06/13/17 08:24> Attending Addendum - Attending Addendum Date/Time: 06/13/17 1902 I personally evaluated the patient and discussed the management with Dr. Walters. I agree with the History, Examination, Assessment and Plan documented above with any addition or exceptions noted below. The patient has scrotal swelling and lower extremity edema. The patient does not have erythema in the lower extremities. No cellulitis at this time. Will continue diuresis. <Thalia Mustafa - Last Filed: 06/13/17 19:03>
[2017-06-13] MEDS: Budesonide 0.5 MG/2 ML NEB NEB SCH ×2 (07:05→21:45)
[2017-06-13] MEDS: Cyanocobalamin (Vitamin B-12) 1,000 MCG TAB PO SCH (08:53)
[2017-06-13] MEDS: Metolazone 5 MG TAB PO SCH (08:53)
[2017-06-13] MEDS: Folic Acid 1 MG TAB PO SCH (08:54)
[2017-06-13] MEDS: Tamsulosin HCl 0.4 MG CAP PO SCH (08:54)
[2017-06-13] MEDS: Potassium Chloride 20 MEQ TAB PO SCH ×2 (08:54→21:11)
[2017-06-13] MEDS: Metoprolol Tartrate 50 MG TAB PO SCH ×2 (08:54→21:10)
--- NOTE | 2017-06-13 12:06 | CON ---
DATE OF CONSULTATION: 06/13/2017 REASON FOR CONSULTATION: Heart failure, fluid overload. HISTORY OF PRESENT ILLNESS: Mr. Sharma is a very pleasant 77-year-old white gentleman, very well kn own to myself who comes to the hospital for increased swelling in his bilateral lower extremities. H e noted that the swelling was no longer just limited to the ankles and calves and it was actually com ing back up all the way to his scrotum. He knows that this is the time he needs IV diuresis as the p .o. Lasix will not work anymore, so he decided to come in. He thinks that he may have overdone it o n his salt intake recently and he waited too long to seek help so this is why he thinks he got into t rouble this time. He has a history of mitral valve prolapse with severe mitral regurgitation. He is on the schedule for Dr. Shelley in [facility] in [place] for mitral valve repair. They are a bout to discuss his case in the next valve meaning sometime this week, I think on Tuesday. He also has coronary artery disease. He had a heart catheterization done recently that showed severe mid RC A disease as well as severe bifurcating LAD and diagonal disease. So during his surgery he will also need a graft to his diagonal, graft to right and MANUEL to the LAD. He is already doing much better a fter some IV diuresis. He denies any chest pain, tightness, pressure, no shortness of breath. PAST MEDICAL HISTORY: 1. Diastolic heart failure. 2. Mitral valve prolapse with severe mitral regurgitation. 3. Chronic atrial fibrillation on Coumadin. 4. Chronic obstructive pulmonary disease. 5. Hypertension. 6. History of Clostridium difficile colitis recently. 7. Hypothyroidism. 8. Recent left index finger osteomyelitis, resolved. PAST SURGICAL HISTORY: 1. Appendectomy. 2. Tonsillectomy. 3. Cataract surgery. 4. Left index finger incision and drainage. 5. Recent heart catheterization. FAMILY HISTORY: Noncontributory. SOCIAL HISTORY: Quit smoking several years ago. No alcohol or drug use. REVIEW OF SYSTEMS: Twelve point review of systems and this was done and is all negative unless state d in the history of present illness. OUTPATIENT MEDICATIONS: 1. Warfarin 4 mg a day. 2. Tamsulosin. 3. Potassium chloride 20 mEq every 12 hours. 4. Protonix 40 mg daily. 5. Metoprolol tartrate 50 mg p.o. b.i.d. 6. Synthroid 25 mcg a day. 7. DuoNebs. 8. Robitussin-DM. 9. Lasix 40 mg a day and he goes to 80 twice a day. when he is starting to get too overloaded. 10. Folic acid. 11. Vitamin B12. 12. Pulmicort. 13. Dulcolax. 14. Aspirin 81 a day. 15. Acetaminophen 500 mg q.6h. p.r.n. fever or chills. ALLERGIES: PENICILLINS. PHYSICAL EXAMINATION: VITAL SIGNS: Temperature 98.0, pulse 102, respiration rate 18, satting 100% on room air, blood press ure 114/65. GENERAL: Awake, alert, oriented x3, in no distress. HEENT: Normocephalic, atraumatic. NECK: Supple. LUNGS: Clear. CARDIOVASCULAR: S1, S2, no S3, S4. There is a grade 3/6 holosystolic murmur at the apex. ABDOMEN: Soft, positive bowel sounds. EXTREMITIES: 3+ edema. SKIN: Warm and dry. LABORATORY WORK: Reviewed. CBC was reviewed. Hemoglobin 11, hematocrit 33. Coags were reviewed. INR is therapeutic at 2.5. Troponins are negative x3. BNP was 1132, BUN of 33, creatinine 1.99 with a baseline around x 1.7. UA was unremarkable. EKG was unremarkable. Chest x-ray on admission showed mild CHF. ASSESSMENT: 1. Acute on chronic diastolic heart failure. 2. Severe mitral regurgitation with mitral valve prolapse. 3. Acute volume overload. 4. Coronary artery disease. No ACS. PLAN: 1. Continue IV diuresis. We will need a few more pounds off. 2. He is scheduled to be discussed at the valve meeting with Dr. Shelley in [facility] in [facility] within the next week to see if he is a candidate for bypass and mitral valve repair versus repla cement. Thank you for letting us participate in the care of your patient. We will follow.
[2017-06-13] MEDS: Warfarin Sodium 2 MG TAB PO SCH (17:18)
[2017-06-13] MEDS: Acetaminophen 325 MG TAB PO PRN (19:00)
[2017-06-13] MEDS: guaiFENesin ER 600 MG TAB PO SCH (21:09)
[2017-06-14] MEDS: Levothyroxine Sodium 25 MCG TAB PO SCH (05:04)
[2017-06-14] MEDS: Acetaminophen 325 MG TAB PO PRN (05:04)
[2017-06-14] MEDS: Furosemide 40 MG/4 ML VIAL SLOW IVP SCH ×2 (05:04→14:55)
[2017-06-14 05:09] LABS: #Basophils 0.1 thou/uL (0.0-0.2); #Eosinphils 0.2 thou/uL (0.0-0.7); #Lymphocytes 1.4 thou/uL (1.20-3.40); #Monocytes 0.9 thou/uL (0.11-0.59); #Neutrophils 5.4 thou/uL (1.40-6.50); %Basophils 0.7 % (0.0-1.0); %Lymphocytes 17.7 % (21.0-51.0); %Monocytes 11.8 % (0.0-10.0); %Neutrophils 67.8 % (42.0-75.0); Mean Corpuscular HGB CONC 32.4 g/dL (32.0-36.0); Mean Corpuscular Hemoglobin 31.7 pg (27.0-31.0); Mean Corpuscular Volume 97.9 fl (80.0-94.0); Mean Platelet Volume 6.1 fL (7.4-10.4); Platelet Count 304 thou/uL (130-400); RBC Distribution Width 15.6 % (11.5-14.5); Red Blood Cell (RBC) Count 3.46 mill/uL (4.70-6.10)
[2017-06-14 05:15] LABS: INR-International Normal Ratio 2.1; Prothrombin Time 24.1 SEC (12.0-14.7)
[2017-06-14 05:21] LABS: Anion Gap 7 mmol/L (10-20); BUN (Urea Nitrogen) 32 mg/dL (8.4-25.7); Calc. Creatinine Clearance 32 mL/min (70-130); Calcium 8.7 mg/dL (7.8-10.44); Carbon Dioxide 36 mmol/L (23-31); Chloride 96 mmol/L (98-107); Estimated GFR-MDRD 36; Glucose 92 mg/dL (83-110); Sodium 135 mmol/L (136-145)
[2017-06-14] MEDS: Budesonide 0.5 MG/2 ML NEB NEB SCH ×2 (06:32→22:49)
--- NOTE | 2017-06-14 06:43 | PDOC.FM ---
- Subjective Subjective: Pt doing well. Reports having some pain in his L. ankle at this time. Reports his swelling has improved overall. Is up moving around. Denies any SOB. Denies any chest pain. Denies any acute events overnight. Denies any fever or chills. Says overall he is improving. Having some back pain that is being well controlled with tylenol. - Objective MAR Reviewed: Yes Vital Signs & Weight: Vital Signs (12 hours) Temp Pulse Resp BP BP Pulse Ox 06/14/17 06:32 88 16 97 06/14/17 04:00 97.6 F 88 19 103/64 100 06/14/17 00:00 97.8 F 82 17 141/79 H 94 L 06/13/17 21:45 89 18 95 06/13/17 21:09 98.1 F 92 15 06/13/17 19:10 98.1 F 92 15 105/59 L 98 Weight Weight 68.719 kg I&O: 06/12/17 06/13/17 06/14/17 06:59 06:59 06:59 Intake Total 420 720 Output Total 1400 3250 I Read Books -942 -9115 Result Diagrams: 06/14/17 04:51 06/14/17 04:51 EKG Reviewed by me: Yes Radiology Reviewed by me: Yes (no new imaging to review today) <Lorne Walters - Last Filed: 06/14/17 08:16> - Objective Vital Signs & Weight: Vital Signs (12 hours) Temp Pulse Resp BP BP Pulse Ox 06/14/17 17:31 97.4 F L 80 18 98/60 10 L 06/14/17 12:10 97.4 F L 93 18 107/57 L 100 06/14/17 07:56 97.4 F L 93 18 95 06/14/17 07:54 97.7 F 99 18 96/57 L 95 06/14/17 06:32 88 16 97 Weight Weight 68.719 kg I&O: 06/13/17 06/14/17 06/15/17 06:59 06:59 06:59 Intake Total 420 720 Output Total 1400 3250 I Read Books -980 -8067 Result Diagrams: 06/14/17 04:51 06/14/17 04:51 <Thalia Mustafa - Last Filed: 04/10/18 17:59> Phys Exam - Physical Examination Constitutional: NAD HEENT: PERRLA Neck: no nodes, supple, full ROM JVD present to mid neck Respiratory: no wheezing, no rales, no rhonchi, clear to auscultation bilateral Cardiovascular: RRR, no significant murmur, no rub Gastrointestinal: soft, non-tender, no distention, positive bowel sounds Musculoskeletal: edema present +4 pitting edema up to knees. Some erythema noted, likely stasis related pain on palpation of lateral left ankle, no heat or bruising noted Neurological: non-focal, normal sensation, moves all 4 limbs Lymphatic: no nodes Psychiatric: normal affect, A&O x 3 Skin: no rash, cap refill <2 seconds <Lorne Walters - Last Filed: 06/14/17 08:16> Dx/Plan (1) Acute kidney injury Code(s): N17.9 - ACUTE KIDNEY FAILURE, UNSPECIFIED Status: Acute (2) Diabetes mellitus Code(s): E11.9 - TYPE 2 DIABETES MELLITUS WITHOUT COMPLICATIONS Status: Acute (3) Acute on chronic heart failure with normal ejection fraction Code(s): I50.33 - ACUTE ON CHRONIC DIASTOLIC (CONGESTIVE) HEART FAILURE Status : Acute (4) Hypertension Code(s): I10 - ESSENTIAL (PRIMARY) HYPERTENSION Status: Acute QualifierTitle: Hypertension type: essential hypertension Qualified Code( s): I10 - Essential (primary) hypertension (5) CKD (chronic kidney disease) stage 3, GFR 30-59 ml/min Code(s): N18.3 - CHRONIC KIDNEY DISEASE, STAGE 3 (MODERATE) Status: Chronic (6) COPD (chronic obstructive pulmonary disease) Status: Chronic QualifierTitle: COPD type: COPD with acute exacerbation Qualified Code(s) : J44.1 - Chronic obstructive pulmonary disease with (acute) exacerbation (7) Chronic a-fib Code(s): I48.2 - CHRONIC ATRIAL FIBRILLATION Status: Chronic (8) Hypothyroidism Code(s): E03.9 - HYPOTHYROIDISM, UNSPECIFIED Status: Chronic QualifierTitle: Hypothyroidism type: acquired Qualified Code(s): E03.9 - Hypothyroidism, unspecified (9) Cellulitis and abscess of lower extremity Code(s): L03.119 - CELLULITIS OF UNSPECIFIED PART OF LIMB; L02.419 - CUTANEOUS ABSCESS OF LIMB, UNSPECIFIED Status: Resolved (10) Fluid overload Code(s): E87.70 - FLUID OVERLOAD, UNSPECIFIED Status: Acute - Plan Plan: 1)Acute on chronic chf: -no evidence of respiratory deficit -fluid overloaded LE likely 2/2 to mitral regurg. -continue theresa IV lasix + metolazone -HH diet w/ salt and fluid restrictions - am bmp, cbc -monitor Is/Os -daily weights -Cardiology consulted- Risa- follow recs continue with diuresis planning to discuss canidancy for valve replacement 2)fluid overload -see #1 3) Acute on chronic ckd -daily BMPs -Monitor Is/Os -daily weights -Cr elevated from past visits likely secondary to fluid overloaded. will continue to monitor. Continue diuresis. Improved today. 4)COPD home meds 5) Afib home meds -tele monitoring 6) Anticoagulation: Home meds 7)Hypothyroidism home meds 8) Cellulitis; resolved -likely stasis dermatitis 2/2 chronic edema and swelling in addition to acute worsening of swelling -will diurese -daily BMP, CBC -No fevers noted. -No need for abx 9)PPX: SCDs, Pepcid <Lorne Walters - Last Filed: 06/14/17 08:16> Attending Addendum - Attending Addendum Date/Time: 06/14/17 4116 I personally evaluated the patient and discussed the management with Dr. Walters. I agree with the History, Examination, Assessment and Plan documented above with any addition or exceptions noted below. Patient still has lower extremity edema 2+ but it is improving. Will continue IV lasix. Monitor i/o. Appreciate cardiology recs. <Thalia Mustafa - Last Filed: 06/14/17 17:59>
[2017-06-14] MEDS: guaiFENesin ER 600 MG TAB PO SCH ×2 (08:53→22:13)
[2017-06-14] MEDS: Metolazone 5 MG TAB PO SCH (08:53)
[2017-06-14] MEDS: Folic Acid 1 MG TAB PO SCH (08:53)
[2017-06-14] MEDS: Metoprolol Tartrate 50 MG TAB PO SCH ×2 (08:53→22:13)
[2017-06-14] MEDS: Cyanocobalamin (Vitamin B-12) 1,000 MCG TAB PO SCH (08:53)
[2017-06-14] MEDS: Acetaminophen 325 MG TAB PO SCH ×3 (08:53→22:12)
[2017-06-14] MEDS: Potassium Chloride 20 MEQ TAB PO SCH ×2 (08:54→22:13)
[2017-06-14] MEDS: Tamsulosin HCl 0.4 MG CAP PO SCH (08:54)
--- NOTE | 2017-06-14 17:22 | PDOC.CTH ---
Cardiology Progress Note - Subjective He is doing much better. He has diuresed well. - Objective Vital Signs Temp Pulse Resp BP BP Pulse Ox 06/14/17 12:10 97.4 F L 93 18 107/57 L 100 06/14/17 07:56 97.4 F L 93 18 95 06/14/17 07:54 97.7 F 99 18 96/57 L 95 06/14/17 06:32 88 16 97 Weight 151 lb 8 oz 06/13/17 06/14/17 06/15/17 06:59 06:59 06:59 Intake Total 420 720 Output Total 1400 3250 Balance -980 -2530 - Physical Examination General/Neuro: alert & oriented x3, NAD Neck: no JVD present Lungs: CTA, unlabored respirations Heart: RRR Abdomen: NT/ND Extremities: other: (no edema.) - Telemetry Telemetry Rhythm: Afib HR 60's. - Labs Result Diagrams: 06/14/17 04:51 06/14/17 04:51 Troponin/CKMB Troponin I 0.020 ng/mL (< 0.028) 06/12/17 20:06 - Assessment/Plan 1. Acute on chronic systolic heart failure 2. Severe MR 3. CAD, severe RCA and LAD/diagonal disease. 4. Afib, rate controlled. 5. Chronic anticoagulation on coumadin. PLAN: - Continue IV diuresis. - Pending MVR with CABG in the near future.
[2017-06-14] MEDS: Warfarin Sodium 2 MG TAB PO SCH (17:32)
[2017-06-15] MEDS: Acetaminophen 325 MG TAB PO SCH ×4 (02:36→21:25)
[2017-06-15] MEDS: Levothyroxine Sodium 25 MCG TAB PO SCH (05:59)
[2017-06-15 06:06] LABS: #Eosinphils 0.2 thou/uL (0.0-0.7); #Lymphocytes 1.3 thou/uL (1.20-3.40); #Monocytes 0.9 thou/uL (0.11-0.59); %Basophils 0.6 % (0.0-1.0); %Eosinophils 2.4 % (0.0-10.0); %Lymphocytes 17.3 % (21.0-51.0); %Monocytes 12.4 % (0.0-10.0); %Neutrophils 67.3 % (42.0-75.0); Hemoglobin 10.4 g/dL (14.0-18.0); Mean Corpuscular HGB CONC 32.7 g/dL (32.0-36.0); Mean Corpuscular Volume 97.8 fl (80.0-94.0); Mean Platelet Volume 6.3 fL (7.4-10.4); Platelet Count 306 thou/uL (130-400); RBC Distribution Width 15.3 % (11.5-14.5); Red Blood Cell (RBC) Count 3.25 mill/uL (4.70-6.10); White Blood Cell (WBC) Count 7.4 thou/uL (4.8-10.8)
[2017-06-15 06:08] LABS: Prothrombin Time 23.4 SEC (12.0-14.7)
[2017-06-15 06:29] LABS: Anion Gap 11 mmol/L (10-20); BUN (Urea Nitrogen) 35 mg/dL (8.4-25.7); Calc. Creatinine Clearance 31 mL/min (70-130); Calcium 8.6 mg/dL (7.8-10.44); Carbon Dioxide 34 mmol/L (23-31); Chloride 94 mmol/L (98-107); Estimated GFR-MDRD 36; Glucose 141 mg/dL (83-110); Potassium 3.4 mmol/L (3.5-5.1); Sodium 136 mmol/L (136-145)
[2017-06-15] MEDS: Furosemide 40 MG/4 ML VIAL SLOW IVP SCH ×2 (06:41→13:58)
[2017-06-15] MEDS: Budesonide 0.5 MG/2 ML NEB NEB SCH ×2 (07:21→20:24)
--- NOTE | 2017-06-15 08:34 | PDOC.FM ---
- Subjective Subjective: Pt reports feeling better this morning. Says he has gotten up and moved around and done his excercises. Denies any chest pain or SOB. Denies any dizziness, lightheadness. Denied any sx's when up moving around. Reports that his legs are doing better. - Objective MAR Reviewed: Yes Vital Signs & Weight: Vital Signs (12 hours) Temp Pulse Resp BP BP Pulse Ox 06/15/17 07:21 106 H 16 98 06/15/17 04:00 98.2 F 90 18 98/53 L 100 06/15/17 00:00 105/65 06/14/17 23:00 105/65 06/14/17 22:49 92 18 100 Weight Weight 66.361 kg I&O: 06/14/17 06/15/17 06/16/17 06:59 06:59 06:59 Intake Total 720 840 Output Total 3249 2049 Balance -253 -1210 Result Diagrams: 06/15/17 04:44 06/15/17 04:44 <Lorne Walters - Last Filed: 06/15/17 08:32> - Objective Vital Signs & Weight: Vital Signs (12 hours) Temp Pulse Resp BP Pulse Ox 06/15/17 11:32 97.6 F 89 16 101/59 L 100 06/15/17 08:59 97.7 F 94 16 109/63 100 06/15/17 07:21 106 H 16 98 06/15/17 04:00 98.2 F 90 18 98/53 L 100 Weight Weight 66.361 kg I&O: 06/14/17 06/15/17 06/16/17 06:59 06:59 06:59 Intake Total 720 840 Output Total [id number] Balance -2530 -1210 Result Diagrams: 06/15/17 04:44 06/15/17 04:44 <Thalia Mustafa - Last Filed: 06/15/17 14:39> Phys Exam - Physical Examination Constitutional: NAD HEENT: PERRLA, moist MMs Neck: no nodes, supple, full ROM JVD up into neck Respiratory: no wheezing, no rhonchi, clear to auscultation bilateral Cardiovascular: RRR, no rub holosystolic murmur noted Gastrointestinal: soft, non-tender, no distention, positive bowel sounds Musculoskeletal: edema present +3 pitting edema in bilateral extremities scrotal and penile edema, improved from yesterday Neurological: non-focal, normal sensation, moves all 4 limbs Psychiatric: normal affect, A&O x 3 Skin: no rash, cap refill <2 seconds <Lorne Walters - Last Filed: 06/15/17 08:32> Dx/Plan (1) Acute kidney injury Code(s): N17.9 - ACUTE KIDNEY FAILURE, UNSPECIFIED Status: Acute (2) Diabetes mellitus Code(s): E11.9 - TYPE 2 DIABETES MELLITUS WITHOUT COMPLICATIONS Status: Acute (3) Acute on chronic heart failure with normal ejection fraction Code(s): I50.33 - ACUTE ON CHRONIC DIASTOLIC (CONGESTIVE) HEART FAILURE Status : Acute (4) Hypertension Code(s): I10 - ESSENTIAL (PRIMARY) HYPERTENSION Status: Acute QualifierTitle: Hypertension type: essential hypertension Qualified Code( s): I10 - Essential (primary) hypertension (5) CKD (chronic kidney disease) stage 3, GFR 30-59 ml/min Code(s): N18.3 - CHRONIC KIDNEY DISEASE, STAGE 3 (MODERATE) Status: Chronic (6) COPD (chronic obstructive pulmonary disease) Status: Chronic QualifierTitle: COPD type: COPD with acute exacerbation Qualified Code(s) : J44.1 - Chronic obstructive pulmonary disease with (acute) exacerbation (7) Chronic a-fib Code(s): I48.2 - CHRONIC ATRIAL FIBRILLATION Status: Chronic (8) Hypothyroidism Code(s): E03.9 - HYPOTHYROIDISM, UNSPECIFIED Status: Chronic QualifierTitle: Hypothyroidism type: acquired Qualified Code(s): E03.9 - Hypothyroidism, unspecified (9) Cellulitis and abscess of lower extremity Code(s): L03.119 - CELLULITIS OF UNSPECIFIED PART OF LIMB; L02.419 - CUTANEOUS ABSCESS OF LIMB, UNSPECIFIED Status: Resolved (10) Fluid overload Code(s): E87.70 - FLUID OVERLOAD, UNSPECIFIED Status: Acute (11) Mitral regurgitation Status: Acute QualifierTitle: Cardiac valve disease etiology: nonrheumatic Qualified Code(s): I34.0 - Nonrheumatic mitral (valve) insufficiency - Plan Plan: 1)Acute on chronic chf w/ severe mitral regurgitation -no evidence of respiratory deficit -fluid overloaded LE likely 2/2 to mitral regurg. -continue theresa IV lasix + metolazone. BP low overnight. Will continue to monitor. Want to continue to diurese -HH diet w/ salt and fluid restrictions - am bmp, cbc -monitor Is/Os -daily weights -Cardiology consulted- Risa- follow recs continue with diuresis planning to discuss canidancy for valve replacement 2)fluid overload -see #1 -continuing to improve compared to yesterday. 3) Acute on chronic ckd -daily BMPs -Monitor Is/Os -daily weights -Cr elevated from past visits likely secondary to fluid overloaded. will continue to monitor. Continue diuresis. Improved today. 4)COPD home meds 5) Afib home meds -tele monitoring -BP low but will continue metoprolol for rate control at this time. 6) Anticoagulation: Home meds -INR in therapeutic range 7)Hypothyroidism home meds 8) Cellulitis; resolved -likely stasis dermatitis 2/2 chronic edema and swelling in addition to acute worsening of swelling -will diurese -daily BMP, CBC -No fevers noted. -No need for abx 9)PPX: SCDs, Pepcid <Lorne Walters - Last Filed: 06/15/17 08:32> Attending Addendum - Attending Addendum Date/Time: 06/15/17 [id number] I personally evaluated the patient and discussed the management with Dr. Walters. I agree with the History, Examination, Assessment and Plan documented above with any addition or exceptions noted below. The patient still has lower extremity edema though he is feeling better. Continue IV lasix. Ultimatly pt needs a valve replacement for long-term solution. <Thalia Mustafa - Last Filed: 06/15/17 14:39>
[2017-06-15] MEDS: Metolazone 5 MG TAB PO SCH (09:06)
[2017-06-15] MEDS: Cyanocobalamin (Vitamin B-12) 1,000 MCG TAB PO SCH (09:08)
[2017-06-15] MEDS: Folic Acid 1 MG TAB PO SCH (09:08)
[2017-06-15] MEDS: guaiFENesin ER 600 MG TAB PO SCH ×2 (09:08→21:25)
[2017-06-15] MEDS: Potassium Chloride 20 MEQ TAB PO SCH ×2 (09:09→21:26)
[2017-06-15] MEDS: Tamsulosin HCl 0.4 MG CAP PO SCH (09:10)
[2017-06-15] MEDS: Metoprolol Tartrate 50 MG TAB PO SCH ×2 (09:13→21:25)
--- NOTE | 2017-06-15 12:54 | PDOC.CTH ---
Cardiology Progress Note - Subjective He is doing better. - Objective Vital Signs Temp Pulse Resp BP Pulse Ox 06/15/17 11:32 97.6 F 89 16 101/59 L 100 06/15/17 08:59 97.7 F 94 16 109/63 100 06/15/17 07:21 106 H 16 98 06/15/17 04:00 98.2 F 90 18 98/53 L 100 Weight 146 lb 4.8 oz 06/14/17 06/15/17 06/16/17 06:59 06:59 06:59 Intake Total 720 840 Output Total 3250 2050 Balance -2530 -1210 - Physical Examination General/Neuro: alert & oriented x3, NAD Neck: no JVD present Lungs: unlabored respirations Heart: other: (Irregular) Abdomen: NT/ND Extremities: + edema B (3+) - Telemetry Telemetry Rhythm: Afibv HR 60's. - Labs Result Diagrams: 06/15/17 04:44 06/15/17 04:44 Troponin/CKMB Troponin I 0.020 ng/mL (< 0.028) 06/12/17 20:06 - Assessment/Plan 1. Acute on chronic systolic heart failure 2. Severe MR 3. CAD, severe RCA and LAD/diagonal disease. 4. Afib, rate controlled. 5. Chronic anticoagulation on coumadin. PLAN: - Continue IV diuresis today and tomorrow then switch to PO. - Pending MVR with CABG in the near future. - Replace K
[2017-06-15] MEDS: Warfarin Sodium 2 MG TAB PO SCH (17:22)
[2017-06-16] MEDS: Acetaminophen 325 MG TAB PO SCH ×4 (05:19→21:02)
[2017-06-16] MEDS: Furosemide 40 MG/4 ML VIAL SLOW IVP SCH ×2 (05:19→14:41)
[2017-06-16] MEDS: Levothyroxine Sodium 25 MCG TAB PO SCH (05:19)
[2017-06-16] MEDS: Budesonide 0.5 MG/2 ML NEB NEB SCH ×2 (06:39→20:11)
[2017-06-16 07:09] LABS: Prothrombin Time 22.9 SEC (12.0-14.7)
[2017-06-16] MEDS: Metolazone 5 MG TAB PO SCH (08:03)
[2017-06-16] MEDS: Cyanocobalamin (Vitamin B-12) 1,000 MCG TAB PO SCH (08:04)
[2017-06-16] MEDS: guaiFENesin ER 600 MG TAB PO SCH ×2 (08:04→21:02)
[2017-06-16] MEDS: Potassium Chloride 20 MEQ TAB PO SCH ×2 (08:04→21:03)
[2017-06-16] MEDS: Folic Acid 1 MG TAB PO SCH (08:04)
[2017-06-16] MEDS: Tamsulosin HCl 0.4 MG CAP PO SCH (08:05)
[2017-06-16] MEDS: Metoprolol Tartrate 50 MG TAB PO SCH ×2 (08:06→21:02)
--- NOTE | 2017-06-16 08:32 | PDOC.FM ---
- Subjective Subjective: Pt doing well this morning. Denies any SOB or chest pain. Reports legs feeling good. Feels like swelling has improved. Denies any lightheadness or dizziness. Reports getting up and moving around fine. No other concerns at this time. No acute events overnight. - Objective MAR Reviewed: Yes Vital Signs & Weight: Vital Signs (12 hours) Temp Pulse Resp BP BP Pulse Ox 06/16/17 07:58 97.4 F L 103 H 16 97/64 95 06/16/17 04:00 98.2 F 88 20 103/44 L 100 06/16/17 00:00 97.6 F 91 19 89/57 L 100 Weight Weight 66.361 kg I&O: 06/15/17 06/16/17 06/17/17 06:59 06:59 06:59 Intake Total 840 1200 Output Total 2049 1974 [id number] Result Diagrams: 06/15/17 04:44 06/15/17 04:44 EKG Reviewed by me: Yes Radiology Reviewed by me: Yes (No new imaging to review) <Lorne Walters - Last Filed: 06/16/17 08:30> - Objective Vital Signs & Weight: Vital Signs (12 hours) Temp Pulse Resp BP BP Pulse Ox 06/16/17 17:16 98.4 F 83 17 119/65 96 06/16/17 15:50 97.2 F L 96 20 118/70 100 06/16/17 11:12 97.6 F 94 16 97/52 L 98 06/16/17 07:58 97.4 F L 103 H 16 97/64 95 Weight Weight 66.361 kg I&O: 06/15/17 06/16/17 06/17/17 06:59 06:59 06:59 Intake Total 840 1200 960 Output Total 2049 1974 2124 [id number] Result Diagrams: 06/16/17 03:30 06/16/17 03:30 <Thalia Mustafa - Last Filed: 06/16/17 18:59> Phys Exam - Physical Examination Constitutional: NAD HEENT: PERRLA, moist MMs Neck: no nodes, supple, full ROM JVD into mid neck Respiratory: no wheezing, no rales, no rhonchi, clear to auscultation bilateral Cardiovascular: RRR, no rub light holosystolic murmur noted Gastrointestinal: soft, non-tender, no distention, positive bowel sounds Musculoskeletal: pulses present, edema present (+2 pitting edema bilaterally. Scrotal and Penile edema stable) Neurological: non-focal, normal sensation Lymphatic: no nodes Psychiatric: normal affect, A&O x 3 Skin: no rash, normal turgor, cap refill <2 seconds <Lorne Walters - Last Filed: 06/16/17 08:30> Dx/Plan (1) Acute kidney injury Code(s): N17.9 - ACUTE KIDNEY FAILURE, UNSPECIFIED Status: Acute (2) Diabetes mellitus Code(s): E11.9 - TYPE 2 DIABETES MELLITUS WITHOUT COMPLICATIONS Status: Acute (3) Acute on chronic heart failure with normal ejection fraction Code(s): I50.33 - ACUTE ON CHRONIC DIASTOLIC (CONGESTIVE) HEART FAILURE Status : Acute (4) Hypertension Code(s): I10 - ESSENTIAL (PRIMARY) HYPERTENSION Status: Acute QualifierTitle: Hypertension type: essential hypertension Qualified Code( s): I10 - Essential (primary) hypertension (5) CKD (chronic kidney disease) stage 3, GFR 30-59 ml/min Code(s): N18.3 - CHRONIC KIDNEY DISEASE, STAGE 3 (MODERATE) Status: Chronic (6) COPD (chronic obstructive pulmonary disease) Status: Chronic QualifierTitle: COPD type: COPD with acute exacerbation Qualified Code(s) : J44.1 - Chronic obstructive pulmonary disease with (acute) exacerbation (7) Chronic a-fib Code(s): I48.2 - CHRONIC ATRIAL FIBRILLATION Status: Chronic (8) Hypothyroidism Code(s): E03.9 - HYPOTHYROIDISM, UNSPECIFIED Status: Chronic QualifierTitle: Hypothyroidism type: acquired Qualified Code(s): E03.9 - Hypothyroidism, unspecified (9) Cellulitis and abscess of lower extremity Code(s): L03.119 - CELLULITIS OF UNSPECIFIED PART OF LIMB; L02.419 - CUTANEOUS ABSCESS OF LIMB, UNSPECIFIED Status: Resolved (10) Fluid overload Code(s): E87.70 - FLUID OVERLOAD, UNSPECIFIED Status: Acute (11) Mitral regurgitation Status: Acute QualifierTitle: Cardiac valve disease etiology: nonrheumatic Qualified Code(s): I34.0 - Nonrheumatic mitral (valve) insufficiency - Plan Plan: 1)Acute on chronic chf w/ severe mitral regurgitation -no evidence of respiratory deficit -fluid overloaded LE likely 2/2 to mitral regurg. -continue theresa IV lasix + metolazone. BP low overnight. Will continue to monitor. Want to continue to diurese -HH diet w/ salt and fluid restrictions - am bmp, cbc -monitor Is/Os -daily weights -Cardiology consulted- Risa- follow recs continue with diuresis and switch to oral tmrw planning to discuss canidancy for valve replacement 2)fluid overload -see #1 -continuing to improve compared to yesterday. 3) Acute on chronic ckd -daily BMPs -Monitor Is/Os -daily weights -Cr elevated from past visits likely secondary to fluid overloaded. will continue to monitor. Continue diuresis. Improved today. 4)COPD home meds 5) Afib home meds -tele monitoring -BP low but will continue metoprolol for rate control at this time. 6) Anticoagulation: Home meds -INR in therapeutic range 7)Hypothyroidism home meds 8) Cellulitis; resolved -likely stasis dermatitis 2/2 chronic edema and swelling in addition to acute worsening of swelling -will diurese -daily BMP, CBC -No fevers noted. -No need for abx <Lorne Walters - Last Filed: 06/16/17 08:30> Attending Addendum - Attending Addendum Date/Time: 06/16/17 665 I personally evaluated the patient and discussed the management with Dr. Walters. I agree with the History, Examination, Assessment and Plan documented above with any addition or exceptions noted below. Will continue IV lasix today and change to po tomorrow. Renal function improving. <Thalia Mustafa - Last Filed: 06/16/17 18:59>
[2017-06-16 09:26] LABS: #Eosinphils 0.2 thou/uL (0.0-0.7); #Lymphocytes 1.4 thou/uL (1.20-3.40); %Basophils 0.5 % (0.0-1.0); %Eosinophils 2.2 % (0.0-10.0); %Monocytes 11.2 % (0.0-10.0); %Neutrophils 70.1 % (42.0-75.0); Hemoglobin 11.4 g/dL (14.0-18.0); Mean Corpuscular HGB CONC 32.2 g/dL (32.0-36.0); Mean Corpuscular Hemoglobin 31.4 pg (27.0-31.0); Mean Corpuscular Volume 97.5 fl (80.0-94.0); Mean Platelet Volume 6.2 fL (7.4-10.4); Platelet Count 329 thou/uL (130-400); RBC Distribution Width 15.5 % (11.5-14.5); Red Blood Cell (RBC) Count 3.64 mill/uL (4.70-6.10); White Blood Cell (WBC) Count 8.6 thou/uL (4.8-10.8)
[2017-06-16 09:35] LABS: Anion Gap 10 mmol/L (10-20); BUN (Urea Nitrogen) 34 mg/dL (8.4-25.7); Calc. Creatinine Clearance 34 mL/min (70-130); Carbon Dioxide 35 mmol/L (23-31); Chloride 91 mmol/L (98-107); Estimated GFR-MDRD 41; Glucose 115 mg/dL (83-110); Potassium 3.4 mmol/L (3.5-5.1); Sodium 133 mmol/L (136-145)
--- NOTE | 2017-06-16 16:24 | PDOC.CTH ---
Cardiology Progress Note - Subjective He is doing well. he continues to diurese. - Objective Vital Signs Temp Pulse Resp BP Pulse Ox 06/16/17 15:50 97.2 F L 96 20 118/70 100 06/16/17 11:12 97.6 F 94 16 97/52 L 98 06/16/17 07:58 97.4 F L 103 H 16 97/64 95 Weight 146 lb 4.8 oz 06/15/17 06/16/17 06/17/17 06:59 06:59 06:59 Intake Total 840 1200 Output Total 2049 1974 Balance -1210 -775 - Physical Examination General/Neuro: alert & oriented x3, NAD Neck: no JVD present Lungs: CTA, unlabored respirations Heart: other: (Irreg) Abdomen: NT/ND Extremities: + edema B (3+) - Telemetry Telemetry Rhythm: Afib. - Labs Result Diagrams: 06/16/17 03:30 06/16/17 03:30 Troponin/CKMB Troponin I 0.020 ng/mL (< 0.028) 06/12/17 20:06 - Assessment/Plan 1. Acute on chronic systolic heart failure 2. Severe MR 3. CAD, severe RCA and LAD/diagonal disease. 4. Afib, rate controlled. 5. Chronic anticoagulation on coumadin. PLAN: - Continue diuresis, switch to PO tomorrow. - Pending MVR with CABG in the near future. - Replace K
[2017-06-16] MEDS: Warfarin Sodium 2 MG TAB PO SCH (16:30)
[2017-06-17] MEDS: Acetaminophen 325 MG TAB PO SCH ×4 (02:30→21:32)
[2017-06-17 05:33] LABS: Prothrombin Time 23.7 SEC (12.0-14.7)
[2017-06-17] MEDS: Levothyroxine Sodium 25 MCG TAB PO SCH (06:00)
[2017-06-17] MEDS: Furosemide 40 MG/4 ML VIAL SLOW IVP SCH (06:38)
[2017-06-17] MEDS: Budesonide 0.5 MG/2 ML NEB NEB SCH ×2 (06:44→19:14)
[2017-06-17] MEDS: Metoprolol Tartrate 50 MG TAB PO SCH ×3 (08:34→21:34)
[2017-06-17] MEDS: Metolazone 5 MG TAB PO SCH ×2 (08:34→08:43)
[2017-06-17] MEDS: Tamsulosin HCl 0.4 MG CAP PO SCH (08:39)
[2017-06-17] MEDS: guaiFENesin ER 600 MG TAB PO SCH ×2 (08:39→21:33)
[2017-06-17] MEDS: Cyanocobalamin (Vitamin B-12) 1,000 MCG TAB PO SCH (08:39)
[2017-06-17] MEDS: Folic Acid 1 MG TAB PO SCH (08:39)
[2017-06-17] MEDS: Potassium Chloride 20 MEQ TAB PO SCH ×2 (08:39→21:33)
--- NOTE | 2017-06-17 08:40 | PDOC.FM ---
- Subjective Subjective: Pt doing well. Denies any SOB. Denies any chest pain. Says legs are feeling good. Says still pretty swollen. Denies any dizziness, lightheadness or weakness. Continues to get up and walk around. Pt says he would like to have the surgery no matter the risks. - Objective MAR Reviewed: Yes Vital Signs & Weight: Vital Signs (12 hours) Temp Pulse Resp BP Pulse Ox 06/17/17 06:44 82 16 97 06/17/17 04:00 97.3 F L 90 20 95/60 100 Weight Weight 64.047 kg I&O: 06/16/17 06/17/17 06/18/17 06:59 06:59 06:59 Intake Total 1200 1260 Output Total 1974 3324 Balance -28 Result Diagrams: 06/16/17 03:30 06/16/17 03:30 EKG Reviewed by me: Yes Radiology Reviewed by me: Yes (No new imaging to review) <Lorne Walters - Last Filed: 06/17/17 08:38> - Objective Vital Signs & Weight: Vital Signs (12 hours) Temp Pulse Resp BP Pulse Ox 06/17/17 08:15 97.5 F L 95 17 103/62 100 06/17/17 06:44 82 16 97 06/17/17 04:00 97.3 F L 90 20 95/60 100 Weight Weight 64.047 kg I&O: 06/16/17 06/17/17 06/18/17 06:59 06:59 06:59 Intake Total 1200 1260 240 Output Total 19742 200 [employer] -091 -4684 40 Result Diagrams: 06/16/17 03:30 06/17/17 09:03 <Thalia Mustafa - Last Filed: 06/17/17 14:56> Phys Exam - Physical Examination Constitutional: NAD HEENT: PERRLA, moist MMs Neck: no nodes, supple, full ROM JVD up to neck line Respiratory: no wheezing, no rales, no rhonchi, clear to auscultation bilateral Cardiovascular: RRR, no rub holosystolic murmur noted Gastrointestinal: soft, non-tender, no distention, positive bowel sounds Musculoskeletal: pulses present, edema present +2 to +3 pitting edema in LE. Imprvoed in Legs. Neurological: normal sensation, moves all 4 limbs Lymphatic: no nodes Psychiatric: normal affect, A&O x 3 Skin: no rash, normal turgor, cap refill <2 seconds <Lorne Walters - Last Filed: 06/17/17 08:38> Dx/Plan (1) Acute kidney injury Code(s): N17.9 - ACUTE KIDNEY FAILURE, UNSPECIFIED Status: Acute (2) Diabetes mellitus Code(s): E11.9 - TYPE 2 DIABETES MELLITUS WITHOUT COMPLICATIONS Status: Acute (3) Acute on chronic heart failure with normal ejection fraction Code(s): I50.33 - ACUTE ON CHRONIC DIASTOLIC (CONGESTIVE) HEART FAILURE Status : Acute (4) Hypertension Code(s): I10 - ESSENTIAL (PRIMARY) HYPERTENSION Status: Acute QualifierTitle: Hypertension type: essential hypertension Qualified Code( s): I10 - Essential (primary) hypertension (5) CKD (chronic kidney disease) stage 3, GFR 30-59 ml/min Code(s): N18.3 - CHRONIC KIDNEY DISEASE, STAGE 3 (MODERATE) Status: Chronic (6) COPD (chronic obstructive pulmonary disease) Status: Chronic QualifierTitle: COPD type: COPD with acute exacerbation Qualified Code(s) : J44.1 - Chronic obstructive pulmonary disease with (acute) exacerbation (7) Chronic a-fib Code(s): I48.2 - CHRONIC ATRIAL FIBRILLATION Status: Chronic (8) Hypothyroidism Code(s): E03.9 - HYPOTHYROIDISM, UNSPECIFIED Status: Chronic QualifierTitle: Hypothyroidism type: acquired Qualified Code(s): E03.9 - Hypothyroidism, unspecified (9) Cellulitis and abscess of lower extremity Code(s): L03.119 - CELLULITIS OF UNSPECIFIED PART OF LIMB; L02.419 - CUTANEOUS ABSCESS OF LIMB, UNSPECIFIED Status: Resolved (10) Fluid overload Code(s): E87.70 - FLUID OVERLOAD, UNSPECIFIED Status: Acute (11) Mitral regurgitation Status: Acute QualifierTitle: Cardiac valve disease etiology: nonrheumatic Qualified Code(s): I34.0 - Nonrheumatic mitral (valve) insufficiency - Plan Plan: 1)Acute on chronic chf w/ severe mitral regurgitation -no evidence of respiratory deficit -fluid overloaded LE likely 2/2 to mitral regurg. -Switched to oral Lasix at this time. Continue metalozone Will continue to monitor. Want to continue to diurese -HH diet w/ salt and fluid restrictions - am bmp, -monitor Is/Os -daily weights -Cardiology consulted- Risa- follow recs continue with diuresis planning to discuss canidancy for valve replacement 2)fluid overload -see #1 -continuing to improve compared to yesterday. 3) Acute on chronic ckd -daily BMPs -Monitor Is/Os -daily weights -Cr elevated from past visits likely secondary to fluid overloaded. will continue to monitor. Continue diuresis. Has improved to his baseline at past visits. 4)COPD home meds 5) Afib home meds -tele monitoring -BP low but will continue metoprolol for rate control at this time. 6) Anticoagulation: Home meds -INR in therapeutic range 7)Hypothyroidism home meds 8) Cellulitis; resolved -likely stasis dermatitis 2/2 chronic edema and swelling in addition to acute worsening of swelling -will diurese -daily BMP, CBC -No fevers noted. -No need for abx <Lorne Walters - Last Filed: 06/17/17 08:38> Attending Addendum - Attending Addendum Date/Time: 06/17/17 6325 I personally evaluated the patient and discussed the management with Dr. Walters. I agree with the History, Examination, Assessment and Plan documented above with any addition or exceptions noted below. Patient still has le edema but this is improved. Will transition to po lasix. Ibanez will be removed. Anticipate d/c tomorrow. Hopefully we here something from the valve conference. Will arrange home health to help manage fluid status on discharge. Renal function improved. <Thalia Mustafa - Last Filed: 06/17/17 14:56>
[2017-06-17 09:30] LABS: Anion Gap 8 mmol/L (10-20); BUN (Urea Nitrogen) 36 mg/dL (8.4-25.7); Calc. Creatinine Clearance 36 mL/min (70-130); Calcium 9.2 mg/dL (7.8-10.44); Carbon Dioxide 36 mmol/L (23-31); Chloride 92 mmol/L (98-107); Estimated GFR-MDRD 45; Glucose 78 mg/dL (83-110); Potassium 3.4 mmol/L (3.5-5.1); Sodium 133 mmol/L (136-145)
[2017-06-17] MEDS: Furosemide 80 MG TAB PO SCH ×2 (09:52→13:20)
[2017-06-17] MEDS: Warfarin Sodium 2 MG TAB PO SCH (16:25)
--- NOTE | 2017-06-17 16:54 | PDOC.CTH ---
Cardiology Progress Note - Subjective He is continuing to improve. Today is his first day of PO diuretics. - Objective Vital Signs Temp Pulse Resp BP BP Pulse Ox 06/17/17 12:55 98.0 F 92 17 100/59 L 100 06/17/17 08:15 97.5 F L 95 17 103/62 100 06/17/17 06:44 82 16 97 Weight 141 lb 3.2 oz 06/16/17 06/17/17 06/18/17 06:59 06:59 06:59 Intake Total 1200 1260 240 Output Total 1974 3325 200 Balance -775 -2065 40 - Physical Examination General/Neuro: alert & oriented x3, NAD Neck: no JVD present Lungs: CTA, unlabored respirations Heart: RRR Abdomen: NT/ND Extremities: + edema B (2+) - Telemetry Telemetry Rhythm: Afib HR 70's. - Labs Result Diagrams: 06/16/17 03:30 06/17/17 09:03 Troponin/CKMB Troponin I 0.020 ng/mL (< 0.028) 06/12/17 20:06 - Assessment/Plan 1. Acute on chronic systolic heart failure 2. Severe MR 3. CAD, severe RCA and LAD/diagonal disease. 4. Afib, rate controlled. 5. Chronic anticoagulation on coumadin. PLAN: - Continue diuresis, switch to PO tomorrow. - Pending MVR with CABG, he received a call today from [facility] in [place] and will be seen later this month, has appointment to meet surgeon and possible surgery the week after. - Replace K - Would keep him for at least 2 days on PO lasix to see if he continues to diurese effectively, if he does not he will need to have IV again.
[2017-06-18] MEDS: Acetaminophen 325 MG TAB PO SCH ×4 (03:18→21:05)
[2017-06-18 05:20] LABS: INR-International Normal Ratio 2.1; Prothrombin Time 24.3 SEC (12.0-14.7)
[2017-06-18] MEDS: Levothyroxine Sodium 25 MCG TAB PO SCH (05:42)
--- NOTE | 2017-06-18 06:01 | PDOC.FM ---
- Objective Vital Signs & Weight: Vital Signs (12 hours) Temp Pulse Resp BP BP Pulse Ox 06/18/17 03:38 98 F 87 16 104/57 L 93 L 06/17/17 20:11 97.8 F 85 18 101/58 L 100 06/17/17 20:08 97.8 F 84 16 100 06/17/17 19:14 84 16 96 06/17/17 19:05 97.8 F 85 18 101/58 L 100 Weight Weight 63.231 kg I&O: 06/16/17 06/17/17 06/18/17 06:59 06:59 06:59 Intake Total 1200 1260 1920 Output Total 1975 3325 3550 Balance -039 -0 -7198 Result Diagrams: 06/16/17 03:30 06/17/17 09:03 <Александр Mo - Last Filed: 06/18/17 07:57> - Objective Vital Signs & Weight: Vital Signs (12 hours) Temp Pulse Resp BP Pulse Ox 06/18/17 12:05 97.9 F 77 18 97/60 96 06/18/17 08:15 97.9 F 85 18 104/60 99 06/18/17 07:22 84 12 Weight Weight 63.231 kg I&O: 06/17/17 06/18/17 06/19/17 06:59 06:59 06:59 Intake Total 1260 1920 240 Output Total 3325 3550 970 Balance -4 -2760 -730 Result Diagrams: 06/18/17 04:19 06/18/17 04:19 <Alex De Leon - Last Filed: 06/18/17 17:18> Phys Exam - Physical Examination Constitutional: NAD HEENT: PERRLA, moist MMs Neck: supple, full ROM Respiratory: no wheezing, no rales, no rhonchi, clear to auscultation bilateral Cardiovascular: RRR, no rub 3/6 holosystolic murmur at apex Gastrointestinal: soft, non-tender, no distention, positive bowel sounds Musculoskeletal: pulses present 3+ pitting edema up to thigh Neurological: non-focal, normal sensation, moves all 4 limbs Psychiatric: normal affect, A&O x 3 Skin: no rash, normal turgor <Александр Mo - Last Filed: 06/18/17 07:57> Dx/Plan (1) Acute on chronic heart failure with normal ejection fraction Code(s): I50.33 - ACUTE ON CHRONIC DIASTOLIC (CONGESTIVE) HEART FAILURE Status : Acute (2) Fluid overload Code(s): E87.70 - FLUID OVERLOAD, UNSPECIFIED Status: Acute (3) Acute kidney injury Code(s): N17.9 - ACUTE KIDNEY FAILURE, UNSPECIFIED Status: Acute (4) Diabetes mellitus Code(s): E11.9 - TYPE 2 DIABETES MELLITUS WITHOUT COMPLICATIONS Status: Chronic (5) CKD (chronic kidney disease) stage 3, GFR 30-59 ml/min Code(s): N18.3 - CHRONIC KIDNEY DISEASE, STAGE 3 (MODERATE) Status: Chronic (6) COPD (chronic obstructive pulmonary disease) Status: Chronic QualifierTitle: COPD type: COPD with acute exacerbation Qualified Code(s) : J44.1 - Chronic obstructive pulmonary disease with (acute) exacerbation (7) Chronic a-fib Code(s): I48.2 - CHRONIC ATRIAL FIBRILLATION Status: Chronic - Plan Plan: 1) Acute on chronic chf w/ severe mitral regurgitation - no evidence of respiratory deficit - fluid overloaded LE likely 2/2 to mitral regurg. - Switched to PO Lasix yesterday, cont metolazone, will monitor fluid retention for a couple more days on PO lasix - HH diet w/ salt and fluid restrictions - monitor Is/Os - daily weights - Cardiology consulted- Risa- follow recs continue with diuresis with PO lasix and monitor for 2 more days planning to discuss canidancy for valve replacement 2) Fluid overload - see #1 - continuing to improve compared to yesterday 3) Acute on chronic ckd - daily BMPs - Monitor Is/Os - daily weights - Cr elevated from past visits likely secondary to fluid overloaded. will continue to monitor. Continue diuresis. Has improved to his baseline at past visits. 4) COPD - home meds 5) Afib home meds - tele monitoring - BP low but will continue metoprolol for rate control at this time. 6) Anticoagulation: Home meds - INR in therapeutic range 7) Hypothyroidism - home meds 8) Cellulitis; resolved - likely stasis dermatitis 2/2 chronic edema and swelling in addition to acute worsening of swelling - daily BMP, CBC - No fevers noted. - No indication for abx <Александр Mo - Last Filed: 06/18/17 07:57> Attending Addendum - Attending Addendum Date/Time: 06/18/17 1702 I personally evaluated the patient and discussed the management with Dr. Mo. I agree with the History, Examination, Assessment and Plan documented above with any addition or exceptions noted below. He feels well. Just has exercise limitation for walking/heavy exertion. Lungs: CTA, Cor: RRR, Grade 3/6 holosystolic murmur with short soft diastolic component loudest in 3d L intercostal space parasternal line. Ext: 2+ pitting edema to Knees. Trace edema thighs. A: Severe Mitral Regurgitation. CHF improved with diuresis. P: Will remain in hospital at least one, if not two days for diuresis while awaiting arrangements for transfer to [place] for Mitral valve replacement. MD Farhat <Alex De Leon - Last Filed: 06/18/17 17:18>
[2017-06-18] MEDS: Budesonide 0.5 MG/2 ML NEB NEB SCH ×2 (07:22→19:36)
[2017-06-18 08:24] LABS: Anion Gap 10 mmol/L (10-20); BUN (Urea Nitrogen) 36 mg/dL (8.4-25.7); Calc. Creatinine Clearance 36 mL/min (70-130); Calcium 8.9 mg/dL (7.8-10.44); Carbon Dioxide 36 mmol/L (23-31); Chloride 91 mmol/L (98-107); Estimated GFR-MDRD 46; Glucose 99 mg/dL (83-110); Potassium 3.3 mmol/L (3.5-5.1); Sodium 134 mmol/L (136-145)
[2017-06-18 08:36] LABS: Band 3 % (5-11); Eosinophils 2 % (0-10); Hemoglobin 10.4 g/dL (14.0-18.0); Lymphocytes 26 % (21-51); MDiff Complete? YES; Mean Corpuscular HGB CONC 32.9 g/dL (32.0-36.0); Mean Corpuscular Hemoglobin 32.1 pg (27.0-31.0); Mean Corpuscular Volume 97.6 fl (80.0-94.0); Mean Platelet Volume 6.4 fL (7.4-10.4); Monocytes 22 % (0-10); Neutrophil 47 % (42-75); Platelet Count 283 thou/uL (130-400); RBC Distribution Width 15.4 % (11.5-14.5); Red Blood Cell (RBC) Count 3.24 mill/uL (4.70-6.10); White Blood Cell (WBC) Count 6.7 thou/uL (4.8-10.8)
[2017-06-18] MEDS: Metolazone 5 MG TAB PO SCH (09:41)
[2017-06-18] MEDS: Tamsulosin HCl 0.4 MG CAP PO SCH (09:41)
[2017-06-18] MEDS: Metoprolol Tartrate 50 MG TAB PO SCH ×2 (09:42→21:05)
[2017-06-18] MEDS: Folic Acid 1 MG TAB PO SCH (09:42)
[2017-06-18] MEDS: Potassium Chloride 20 MEQ TAB PO SCH ×2 (09:42→21:05)
[2017-06-18] MEDS: Cyanocobalamin (Vitamin B-12) 1,000 MCG TAB PO SCH (09:42)
[2017-06-18] MEDS: Furosemide 80 MG TAB PO SCH ×2 (09:42→13:43)
[2017-06-18] MEDS: guaiFENesin ER 600 MG TAB PO SCH ×2 (09:43→21:06)
[2017-06-18] MEDS: Warfarin Sodium 2 MG TAB PO SCH (16:06)
--- NOTE | 2017-06-18 16:43 | PDOC.CTH ---
Cardiology Progress Note - Subjective Continues to feel well. Continues to diurese. - Objective Vital Signs Temp Pulse Resp BP Pulse Ox 06/18/17 12:05 97.9 F 77 18 97/60 96 06/18/17 08:15 97.9 F 85 18 104/60 99 06/18/17 07:22 84 12 Weight 139 lb 6.4 oz 06/17/17 06/18/17 06/19/17 06:59 06:59 06:59 Intake Total 1260 1920 240 Output Total 3325 3550 970 Balance -2065 -1630 -730 - Physical Examination General/Neuro: alert & oriented x3, NAD Neck: no JVD present Lungs: CTA, unlabored respirations Heart: RRR Abdomen: NT/ND Extremities: + edema B (2+) - Telemetry Telemetry Rhythm: Afib HR 70's. - Labs Result Diagrams: 06/18/17 04:19 06/18/17 04:19 Troponin/CKMB Troponin I 0.020 ng/mL (< 0.028) 06/12/17 20:06 - Assessment/Plan 1. Acute on chronic systolic heart failure 2. Severe MR 3. CAD, severe RCA and LAD/diagonal disease. 4. Afib, rate controlled. 5. Chronic anticoagulation on coumadin. PLAN: - Continue diuresis with PO lasix. - Pending MVR with CABG. - Replace K - Would keep him for at least 1 more day.
[2017-06-19] MEDS: Acetaminophen 325 MG TAB PO SCH ×4 (02:37→20:20)
[2017-06-19 05:22] LABS: INR-International Normal Ratio 2.3; Prothrombin Time 25.7 SEC (12.0-14.7)
[2017-06-19] MEDS: Levothyroxine Sodium 25 MCG TAB PO SCH (05:37)
--- NOTE | 2017-06-19 06:11 | PDOC.FM ---
- Subjective Subjective: Kenrick Sharma seen at bedside this morning. He has no complaints. States that he walked the halls yesterday and felt well, only got short of breath once. He had no acute events overnight. Denies any fever, chills, chest pain, dyspnea, n /v, abdominal pain. - Objective MAR Reviewed: Yes Vital Signs & Weight: Vital Signs (12 hours) Temp Pulse Resp BP Pulse Ox 06/19/17 04:00 98.2 F 80 20 111/65 94 L 06/18/17 20:12 98.2 F 86 18 100 06/18/17 19:49 98.2 F 86 18 117/56 L 100 06/18/17 19:36 83 16 100 06/18/17 19:26 98.2 F 86 18 117/56 L 100 Weight Weight 63.231 kg I&O: 06/17/17 06/18/17 06/19/17 06:59 06:59 06:59 Intake Total 1260 1920 1560 Output Total 3325 3550 3170 Balance -2064 -1629 -161 Result Diagrams: 06/18/17 04:19 06/19/17 06:29 <Александр Mo - Last Filed: 06/19/17 07:16> - Objective Vital Signs & Weight: Vital Signs (12 hours) Temp Pulse Resp BP Pulse Ox 06/19/17 12:10 97.8 F 78 16 96/60 98 06/19/17 08:58 84 12 06/19/17 08:00 97.5 F L 88 18 103/68 98 06/19/17 04:00 98.2 F 80 20 111/65 94 L Weight Weight 61.7 kg I&O: 06/18/17 06/19/17 06/20/17 06:59 06:59 06:59 Intake Total 1920 1560 Output Total 3550 3170 Balance -163 -1610 Result Diagrams: 06/19/17 06:29 06/19/17 06:29 <Alex De Leon - Last Filed: 06/19/17 14:26> Phys Exam - Physical Examination Constitutional: NAD HEENT: moist MMs, sclera anicteric Neck: supple, full ROM JVD present Respiratory: no wheezing, no rales, no rhonchi, clear to auscultation bilateral Cardiovascular: RRR, no rub 3/6 holosystolic murmur heard at the apex Gastrointestinal: soft, non-tender, no distention Musculoskeletal: pulses present 3+ pitting edema up to mid thigh Neurological: non-focal, normal sensation, moves all 4 limbs Psychiatric: normal affect, A&O x 3 <Александр Mo - Last Filed: 06/19/17 07:16> Dx/Plan (1) Acute on chronic heart failure with normal ejection fraction Code(s): I50.33 - ACUTE ON CHRONIC DIASTOLIC (CONGESTIVE) HEART FAILURE Status : Acute (2) Fluid overload Code(s): E87.70 - FLUID OVERLOAD, UNSPECIFIED Status: Acute (3) Acute kidney injury Code(s): N17.9 - ACUTE KIDNEY FAILURE, UNSPECIFIED Status: Acute (4) Diabetes mellitus Code(s): E11.9 - TYPE 2 DIABETES MELLITUS WITHOUT COMPLICATIONS Status: Chronic (5) CKD (chronic kidney disease) stage 3, GFR 30-59 ml/min Code(s): N18.3 - CHRONIC KIDNEY DISEASE, STAGE 3 (MODERATE) Status: Chronic (6) COPD (chronic obstructive pulmonary disease) Status: Chronic QualifierTitle: COPD type: COPD with acute exacerbation Qualified Code(s) : J44.1 - Chronic obstructive pulmonary disease with (acute) exacerbation (7) Chronic a-fib Code(s): I48.2 - CHRONIC ATRIAL FIBRILLATION Status: Chronic - Plan Plan: 1) Acute on chronic chf w/ severe mitral regurgitation - no evidence of respiratory deficit - fluid overloaded LE likely 2/2 to mitral regurg. - Switched to PO Lasix yesterday, cont metolazone, will monitor fluid retention for one more day on PO lasix - HH diet w/ salt and fluid restrictions - monitor Is/Os - daily weights - Cardiology consulted- Risa- follow recs continue with diuresis with PO lasix and monitor for 2 more days planning to discuss canidancy for valve replacement - pending MVR with CABG outpatient 2) Fluid overload - see #1 - continuing to improve compared to yesterday - Has diuresed >8L since admission 3) Acute on chronic ckd - daily BMPs - Monitor Is/Os - daily weights - Cr elevated from past visits likely secondary to fluid overloaded. will continue to monitor. Continue diuresis. Has improved to his baseline at past visits. 4) COPD - home meds 5) Afib home meds - tele monitoring - BP low but will continue metoprolol for rate control at this time. 6) Anticoagulation: Home meds - INR in therapeutic range 7) Hypothyroidism - home meds 8) Cellulitis; resolved - likely stasis dermatitis 2/2 chronic edema and swelling in addition to acute worsening of swelling - daily BMP, CBC - No fevers noted. - No indication for abx <Александр Mo - Last Filed: 06/19/17 07:16> (1) Mitral regurgitation Status: Acute Qualifiers: Cardiac valve disease etiology: etiology unspecified Qualified Code(s): I34.0 - Nonrheumatic mitral (valve) insufficiency (2) Ventricular tachycardia (paroxysmal) Code(s): I47.2 - VENTRICULAR TACHYCARDIA Status: Acute <Alex De Leon - Last Filed: 06/19/17 14:26> Attending Addendum - Attending Addendum Date/Time: 06/19/17 5435 I personally evaluated the patient and discussed the management with Dr. Mo. I agree with the History, Examination, Assessment and Plan documented above with any addition or exceptions noted below. He feels ok. Had a short run of Ventricular Tachycardia asymptomatic while sleeping this morning. Lungs: CTA. Cor: regular with occasional ectopic beats. A: Severe Mitral Regurgitation Acute Paroxysmal V-tach P: For now we will continue to monitor and continue metoprolol. Continue telemetry monitoring in hospital. <Alex De Leon - Last Filed: 06/19/17 14:26>
[2017-06-19 07:00] LABS: ALT (SGPT) 18 U/L (8-55); AST (SGOT) 33 U/L (5-34); Albumin 3.2 g/dL (3.4-4.8); Alkaline Phosphatase 137 U/L (40-150); BUN (Urea Nitrogen) 35 mg/dL (8.4-25.7); Bilirubin, Total 0.7 mg/dL (0.2-1.2); Calc. Creatinine Clearance 34 mL/min (70-130); Calcium 9.2 mg/dL (7.8-10.44); Estimated GFR-MDRD 44; Glucose 120 mg/dL (83-110); Protein, Total 6.2 g/dL (5.8-8.1)
[2017-06-19 07:09] LABS: Anion Gap 14 mmol/L (10-20); Carbon Dioxide 36 mmol/L (23-31); Chloride 89 mmol/L (98-107); Sodium 136 mmol/L (136-145)
[2017-06-19 07:17] LABS: Band 4 % (5-11); Hemoglobin 10.6 g/dL (14.0-18.0); Lymphocytes 23 % (21-51); MDiff Complete? YES; Mean Corpuscular HGB CONC 32.6 g/dL (32.0-36.0); Mean Corpuscular Hemoglobin 31.8 pg (27.0-31.0); Mean Corpuscular Volume 97.5 fl (80.0-94.0); Monocytes 12 % (0-10); Neutrophil 60 % (42-75); Platelet Count 266 thou/uL (130-400); RBC Distribution Width 15.4 % (11.5-14.5); Red Blood Cell (RBC) Count 3.34 mill/uL (4.70-6.10); White Blood Cell (WBC) Count 6.8 thou/uL (4.8-10.8)
[2017-06-19] MEDS ORDERED: Potassium Chloride 20 MEQ TAB PO SCH (08:00)
[2017-06-19] MEDS: Potassium Chloride 20 MEQ TAB PO SCH ×2 (08:47→20:19)
[2017-06-19] MEDS: Cyanocobalamin (Vitamin B-12) 1,000 MCG TAB PO SCH (08:47)
[2017-06-19] MEDS: Metolazone 5 MG TAB PO SCH (08:47)
[2017-06-19] MEDS: Folic Acid 1 MG TAB PO SCH (08:48)
[2017-06-19] MEDS: guaiFENesin ER 600 MG TAB PO SCH ×2 (08:48→20:20)
[2017-06-19] MEDS: Furosemide 80 MG TAB PO SCH ×2 (08:48→15:00)
[2017-06-19] MEDS: Metoprolol Tartrate 50 MG TAB PO SCH ×2 (08:48→20:20)
[2017-06-19] MEDS: Tamsulosin HCl 0.4 MG CAP PO SCH (08:49)
[2017-06-19] MEDS: Budesonide 0.5 MG/2 ML NEB NEB SCH ×2 (08:58→19:50)
--- NOTE | 2017-06-19 15:15 | PDOC.CTH ---
Cardiology Progress Note - Subjective He is alittle more volume up today as compared to yesterday. His creatinine bumped up since switching to PO Lasix. - Objective Vital Signs Temp Pulse Resp BP Pulse Ox 06/19/17 12:10 97.8 F 78 16 96/60 98 06/19/17 08:58 84 12 06/19/17 08:00 97.5 F L 88 18 103/68 98 06/19/17 04:00 98.2 F 80 20 111/65 94 L Weight 136 lb 0.403 oz 06/18/17 06/19/17 06/20/17 06:59 06:59 06:59 Intake Total 1920 1560 Output Total 3550 3170 Balance -1630 -1610 - Physical Examination General/Neuro: alert & oriented x3, NAD Neck: no JVD present Lungs: unlabored respirations Heart: other: (Irregular) Abdomen: NT/ND Extremities: + edema B (3+) - Telemetry Telemetry Rhythm: Afib HR 60's. - Labs Result Diagrams: 06/19/17 06:29 06/19/17 06:29 Troponin/CKMB Troponin I 0.020 ng/mL (< 0.028) 06/12/17 20:06 - Assessment/Plan 1. Acute on chronic systolic heart failure 2. Severe MR 3. CAD, severe RCA and LAD/diagonal disease. 4. Afib, rate controlled. 5. Chronic anticoagulation on coumadin. PLAN: - Continue PO lasix. He did put out about 1.6L net negative on PO similar to his last IV lasix day. Would add metolazone if we need to increase his diuresis for now. - Pending MVR with CABG. - Replace K - Continue to monitor.
[2017-06-19] MEDS: Warfarin Sodium 2 MG TAB PO SCH (17:38)
[2017-06-20] MEDS: Acetaminophen 325 MG TAB PO SCH ×3 (03:12→16:26)
[2017-06-20 05:30] LABS: INR-International Normal Ratio 2.3; Prothrombin Time 26.5 SEC (12.0-14.7)
[2017-06-20] MEDS: Levothyroxine Sodium 25 MCG TAB PO SCH (05:37)
[2017-06-20] MEDS ORDERED: Potassium Chloride 20 MEQ TAB PO SCH ×2 (08:19→09:00)
[2017-06-20] MEDS: Budesonide 0.5 MG/2 ML NEB NEB SCH (08:33)
[2017-06-20] MEDS: Folic Acid 1 MG TAB PO SCH (08:53)
[2017-06-20] MEDS: Metolazone 5 MG TAB PO SCH (08:53)
[2017-06-20] MEDS: Tamsulosin HCl 0.4 MG CAP PO SCH (08:54)
[2017-06-20] MEDS: Cyanocobalamin (Vitamin B-12) 1,000 MCG TAB PO SCH (08:54)
[2017-06-20] MEDS: Furosemide 80 MG TAB PO SCH (08:54)
[2017-06-20] MEDS: guaiFENesin ER 600 MG TAB PO SCH (08:54)
[2017-06-20] MEDS: Metoprolol Tartrate 50 MG TAB PO SCH (09:01)
[2017-06-20 09:51] LABS: BUN (Urea Nitrogen) 37 mg/dL (8.4-25.7); Calc. Creatinine Clearance 31 mL/min (70-130); Calcium 9.3 mg/dL (7.8-10.44); Estimated GFR-MDRD 39; Glucose 104 mg/dL (83-110)
[2017-06-20 10:02] LABS: Anion Gap 14 mmol/L (10-20); Carbon Dioxide 36 mmol/L (23-31); Chloride 89 mmol/L (98-107); Potassium 3.3 mmol/L (3.5-5.1); Sodium 136 mmol/L (136-145)
--- NOTE | 2017-06-20 11:38 | PDOC.FM ---
- Subjective Subjective: Pt reports doing well. Says the swelling has improved to point where he is able to pull skin back on his penis. Denies any chest pain or SOB. Denies any fever or chills. Denies any acute events overnight. Is up getting around - Objective MAR Reviewed: Yes Vital Signs & Weight: Vital Signs (12 hours) Temp Pulse Resp BP Pulse Ox 06/20/17 08:33 82 16 97 06/20/17 08:00 97.5 F L 82 16 98/60 99 06/20/17 03:34 97.7 F 86 16 99/65 100 Weight Weight 62.7 kg I&O: 06/19/17 06/20/17 06/21/17 06:59 06:59 06:59 Intake Total 1560 960 Output Total 3170 1650 Balance -1610 -690 Result Diagrams: 06/19/17 06:29 06/20/17 09:14 EKG Reviewed by me: Yes (No episodes of vtach overnight) Phys Exam - Physical Examination Constitutional: NAD HEENT: PERRLA, moist MMs, sclera anicteric Neck: no nodes, supple, full ROM JVD up into neck Respiratory: no wheezing, no rales, no rhonchi, clear to auscultation bilateral Cardiovascular: RRR, no rub systolic murmur noted Gastrointestinal: soft, non-tender, no distention, positive bowel sounds Musculoskeletal: pulses present, edema present (+3 pitting edema in LE bilaterally) Neurological: non-focal, normal sensation, moves all 4 limbs Lymphatic: no nodes Psychiatric: normal affect, A&O x 3 Skin: no rash, normal turgor, cap refill <2 seconds Dx/Plan (1) Acute on chronic heart failure with normal ejection fraction Code(s): I50.33 - ACUTE ON CHRONIC DIASTOLIC (CONGESTIVE) HEART FAILURE Status : Acute (2) Acute kidney injury Code(s): N17.9 - ACUTE KIDNEY FAILURE, UNSPECIFIED Status: Acute (3) Diabetes mellitus Code(s): E11.9 - TYPE 2 DIABETES MELLITUS WITHOUT COMPLICATIONS Status: Chronic (4) Hypertension Code(s): I10 - ESSENTIAL (PRIMARY) HYPERTENSION Status: Acute Qualifiers: Hypertension type: essential hypertension Qualified Code(s): I10 - Essential (primary) hypertension (5) CKD (chronic kidney disease) stage 3, GFR 30-59 ml/min Code(s): N18.3 - CHRONIC KIDNEY DISEASE, STAGE 3 (MODERATE) Status: Chronic (6) COPD (chronic obstructive pulmonary disease) Status: Chronic Qualifiers: COPD type: COPD with acute exacerbation Qualified Code(s): J44.1 - Chronic obstructive pulmonary disease with (acute) exacerbation (7) Chronic a-fib Code(s): I48.2 - CHRONIC ATRIAL FIBRILLATION Status: Chronic (8) Hypothyroidism Code(s): E03.9 - HYPOTHYROIDISM, UNSPECIFIED Status: Chronic Qualifiers: Hypothyroidism type: acquired Qualified Code(s): E03.9 - Hypothyroidism, unspecified (9) Cellulitis and abscess of lower extremity Code(s): L03.119 - CELLULITIS OF UNSPECIFIED PART OF LIMB; L02.419 - CUTANEOUS ABSCESS OF LIMB, UNSPECIFIED Status: Resolved (10) Fluid overload Code(s): E87.70 - FLUID OVERLOAD, UNSPECIFIED Status: Acute (11) Mitral regurgitation Status: Acute Qualifiers: Cardiac valve disease etiology: etiology unspecified Qualified Code(s): I34.0 - Nonrheumatic mitral (valve) insufficiency - Plan Plan: 1) Acute on chronic chf w/ severe mitral regurgitation - no evidence of respiratory deficit - fluid overloaded LE likely 2/2 to mitral regurg. - Has been on PO lasix since Tuesday cont metolazone, - HH diet w/ salt and fluid restrictions - monitor Is/Os - daily weights - Cardiology consulted- Risa- follow recs continue with diuresis with PO lasix, will await recs - pending MVR with CABG outpatient -Had a few episodes of VTACH Tuesday-Tuesday night. None last night. On tele monitor. Will continue to follow 2) Fluid overload - see #1 - continuing to improve compared to yesterday - Has continued to diurese off a liter yesterday 3) Acute on chronic ckd - daily BMPs - Monitor Is/Os - daily weights - Cr trended down initially but last two days has increased. Likely due to lasix. Decreaed to 40 mg PO BID down from 80. Will continue to follow and will need close f/u outpatient 4) COPD - home meds 5) Afib home meds - tele monitoring - BP low but will continue metoprolol for rate control at this time. 6) Anticoagulation: Home meds - INR in therapeutic range 7) Hypothyroidism - home meds 8) Cellulitis; resolved - likely stasis dermatitis 2/2 chronic edema and swelling in addition to acute worsening of swelling - daily BMP, CBC - No fevers noted. - No indication for abx
--- NOTE | 2017-06-20 12:12 | ADD-PRG ---
DATE OF SERVICE: 06/20/2017 This is an addendum to the note of Dr. Lorne Walters. HISTORY OF PRESENT ILLNESS: Mr. Sharma is a pleasant 77-year-old white male patient with numerous c omorbidities including severe mitral regurgitation. Arrangements are currently being made to have hi m see a CV surgeon in [place] to have valve replacement. In the meantime, we will continue to treat his heart failure aggressively. This morning he is awake, alert, in no distress. His blood pressure is 98/60, pulse rate is 88, O2 s aturation on room air is 99%. He is afebrile. LABORATORY DATA: Hemoglobin yesterday was 10.6 with hematocrit 32.6. We await discharge for him to follow up with CV surgeon for valve repair.
--- NOTE | 2017-06-20 13:45 | PDOC.CTH ---
Cardiology Progress Note - Subjective He is doing much better. His swelling continues to improve. - Objective Vital Signs Temp Pulse Resp BP BP Pulse Ox 06/20/17 11:49 96.4 F L 83 18 107/63 93 L 06/20/17 08:33 82 16 97 06/20/17 08:00 97.5 F L 82 16 98/60 99 06/20/17 03:34 97.7 F 86 16 99/65 100 Weight 138 lb 3.677 oz 06/19/17 06/20/17 06/21/17 06:59 06:59 06:59 Intake Total 1560 960 Output Total 3170 1650 Balance -1610 -690 - Physical Examination General/Neuro: alert & oriented x3, NAD Neck: no JVD present Lungs: CTA, unlabored respirations Heart: other: (Irregular) Abdomen: NT/ND Extremities: + edema B (2+) - Telemetry Telemetry Rhythm: Afib, non sustained VT - Labs Result Diagrams: 06/19/17 06:29 06/20/17 09:14 Troponin/CKMB Troponin I 0.020 ng/mL (< 0.028) 06/12/17 20:06 - Assessment/Plan 1. Acute on chronic systolic heart failure 2. Severe MR 3. CAD, severe RCA and LAD/diagonal disease. 4. Afib, rate controlled. 5. Chronic anticoagulation on coumadin. PLAN: - Pending MVR with CABG. - Replace K - He will need PO lasix at 80 mg in AM and 40 mg in PM and Metolazone at current dose on tuesday and tuesday and PRN for increased swelling. - Continue BB for NSVT, needs revasc surgically. - He can go home today and follow up for next week with [place] [facility] surgeon for MV repair and CABG.
[2017-06-20] MEDS ORDERED: Furosemide 40 MG TAB PO SCH (14:00)
[2017-06-20 16:21] VITALS: BP 105/59; TEMP 97.6
[2017-06-20] MEDS: Warfarin Sodium 2 MG TAB PO SCH (16:26)
--- NOTE | 2017-06-20 20:16 | DIS-2 ---
DATE OF ADMISSION: 06/12/2017 DATE OF DISCHARGE: 06/20/2017 ADMITTING ATTENDING: Ruslan Multani M.D. DISCHARGE ATTENDING: Mick Young M.D. RESIDENT: Lorne Walters, PGY-1. IMAGING DATA: A chest x-ray on 06/12/2017 shows findings that indicate CHF, correlate clinically. CONSULTS: Cardiology, Dr. Lord. PROBLEMS: 1. Acute on chronic congestive heart failure with severe mitral regurgitation. 2. Fluid overload secondary to problem #1. 3. Acute on chronic kidney disease. 4. Chronic obstructive pulmonary disease. 5. Atrial fibrillation. 6. Anticoagulation. 7. Hypothyroidism. DISCHARGE MEDICATIONS: Include; 1. Lasix 80 mg in the a.m. and 40 mg in the p.m. 2. Metolazone 5 mg on Tuesdays and Fridays, and then p.r.n. as needed for fluid overload and weight gain. 3. Potassium chloride 40 mEq p.o. q.12 hours. 4. Aspirin 81 mg p.o. q.a.m. 5. Dulcolax 10 mg p.o. daily p.r.n. 6. Pulmicort 0.5 mg INH b.i.d. 7. Vitamin B12 1000 mcg p.o. q.a.m. 8. Folic acid 1 mg p.o. q.a.m. 9. DuoNeb 3 mL nebulized q.6 hours RT. 10. Levothyroxine 25 mcg p.o. 11. Metoprolol tartrate 50 mg p.o. b.i.d. 12. Pantoprazole 40 mg p.o. q.a.m. 13. Tamsulosin 0.4 mg p.o. daily. 14. Warfarin 4 mg p.o. 1700. 15. Guaifenesin DM 30 mg p.o. q.4 hours p.r.n. as needed. DISCONTINUED MEDICATIONS: We discontinued IV Lasix and switched him to p.o. Lasix. HISTORY OF PRESENT ILLNESS AND BRIEF HOSPITAL COURSE: This is a 77-year-old male that came in with w hat was called bilateral cellulitis, has a history of COPD, atrial fibrillation and hypothyroid, who had bilateral lower extremity edema all the way up to the thighs and penile and scrotal edema, which had worsened over 2 days prior to admission. He has a known heart failure, mitral valve prolapse wit h severe mitral regurg, diabetes and hypothyroidism. When he came in, he had severe bilateral lower extremity edema, +[address] the way up to his thighs with severe mitral valve prolapse. Wh en we got him, we started him back on metolazone 5 mg and started him on a high dose IV Lasix 40 mg I V b.i.d. Also, when he was here, his creatinine was bumped at 1.95 from his baseline, which is aroun d 1.4 and 1.3, likely due to a little bit of dehydration secondary to fluid being in the extremities. We continue to get him IV Lasix and his creatinine would actually improve over the next few days to 1.83, 1.1 to 1.63, but then upon discharge, it would go up again a little bit at 1.7. During the , we also consulted Cardiology, Dr. Lord, who advised us to continue giving him IV Lasix. We gav e him IV Lasix all the way until last Tuesday and we switched him to p.o. Lasix 80 mg b.i.d. and cont inue metolazone. We continued to watch him as he had severe extremity edema. He had been in for thi s multiple times within the last 2 months. During this time, Dr. Lord met with the heart failure v bonnie marcelino in [place], and had a little conference about him on Tuesday. He was set up an appointment with them on 06/30 and will need to follow up with him. Per patient, he wants to get the surgery don e, no matter what the risks are as he said his quality of life has gone down since this. Also, while the patient was here, his potassium was started to drop to 3.4, 3.4, and stayed low. We have to con tinually replace otherwise here, so instead we up the Lasix to 40 mEq b.i.d. as he would be on high d ose Lasix outpatient. Again we finally today on discharge, we switched him to 80 mg Lasix in the mor [place] and 40 at night due to his creatinine going up a little bit. Dr. Lord recommended be on metol azone 5 mg on Tuesdays and Fridays, and then take it p.r.n. based on weight and we also got him set u p with Home Health to continue following this. As said, he was admitted for cellulitis, but when he got here, he never had any elevated white blood cell count, never had any fevers. The extremities we re not hot to touch. I think that his legs were just red from the severe swelling from the CHF. At that time, we stopped the antibiotics that the ER was giving him. DISPOSITION: Fair. DISCHARGE INSTRUCTIONS: 1. Location: Home. 2. Activities: Activity as tolerated. 3. Diet: Fluid restricted heart healthy, no salt added diet. 4. Followup: Will need to follow up with Dr. Mayorga within the next few days for close followup a nd rechecking of his labs and creatinine function.
--- NOTE | 2017-07-22 13:59 | EKG ---
Test Reason : Blood Pressure : / mmHG Vent. Rate : 083 BPM Atrial Rate : 227 BPM P-R Int : 000 ms QRS Dur : 100 ms QT Int : 392 ms P-R-T Axes : 000 005 055 degrees QTc Int : 460 ms Atrial fibrillation with a competing junctional pacemaker Low voltage QRS Abnormal ECG Confirmed by ALEXA CRUZ, NICOLÁS ([id number]), visual effects editor JOHNNIE JONES ([id number]) on 07/22/2017 1:59:06 PM Referred By: Confirmed By:NICOLÁS LIU MD
== END 2017-06-20 16:47 | disposition home health service (06) | DRG 291 ==
LOC: ERS 13:59 → ERHOLD 15:10 → 2NO 18:50
PROVIDERS: ADMIT Family Medicine; ATTEND Family Medicine
DX: I13.0 Hypertensive heart and chronic kidney disease with heart failure and stage 1 through stage 4 chronic kidney disease, or unspecified chronic kidney disease (principal); I50.33 Acute on chronic diastolic (congestive) heart failure; N17.9 Acute kidney failure, unspecified; I47.2 Ventricular tachycardia; E86.0 Dehydration; N18.3 Chronic kidney disease, stage 3 (moderate); J44.1 Chronic obstructive pulmonary disease with (acute) exacerbation; L03.115 Cellulitis of right lower limb; L03.116 Cellulitis of left lower limb; E11.22 Type 2 diabetes mellitus with diabetic chronic kidney disease; I48.2 Chronic atrial fibrillation; E03.9 Hypothyroidism, unspecified; I25.10 Atherosclerotic heart disease of native coronary artery without angina pectoris; I34.0 Nonrheumatic mitral (valve) insufficiency; Z79.82 Long term (current) use of aspirin; Z79.01 Long term (current) use of anticoagulants; Z88.0 Allergy status to penicillin; I87.2 Venous insufficiency (chronic) (peripheral); N40.0 Benign prostatic hyperplasia without lower urinary tract symptoms; Z87.891 Personal history of nicotine dependence
CPT/HCPCS: 36415; 36416; 80048; 80053; 81003; 83605; 83880; 85025; 85610; 87040; 93005; 93798; 94640; 96365; 96366; 96367; G8978-GP-CJ; G8979-GP-CJ; G8980-GP-CJ; J1940; J2185; J3370; J7050; J7626